=== PATIENT | female | born 1955 | race African-American/Black ===

== ENCOUNTER → 2016-08-26 | Outpatient (CLI) | payer OTHER ==
--- NOTE | 2016-08-26 23:25 | WWHP ---
DATE OF DICTATION: 08/26/2016 CHIEF COMPLAINT: The patient is here for her routine gynecologic exam and mammogram. HISTORY OF PRESENT ILLNESS: This is a 60-year-old -0-5-4 with an LMP of 2013. The patient is complaining of problems related to decreased sexual desire. She states she noticed significant decrease after her menopause a few years ago. She states she has been having marital problems and they do tend to argue a lot. She continues to have some left-sided pelvic discomfort, especially with sexual intercourse. She did have a negative ultrasound one year ago. She denies any postmenopausal bleeding. PAST MEDICAL HISTORY: 1. Chronic lumbar back problems. 2. History of CVA and NC. 3. Chronic hypertension. 4. COPD. 5. Depression. Dr. Naik is her primary care physician. MEDICATIONS: 1. Alprazolam 1 mg t.i.d. 2. Montelukast 10 mg daily. 3. Amlodipine 5 mg daily. 4. Hydrocodone with acetaminophen 10/325 t.i.d. 5. Vitamin B6 50 mg daily. ALLERGIES: NO KNOWN DRUG ALLERGIES. Past surgical, DISPATCHER RADIO and family histories are unchanged from the 2016 H&P. SOCIAL HISTORY: She was a regular smoker in the past but has decreased and now only smokes cigarettes when she is upset. She typically has 1 to 2 cigarettes per week. She has about 3 alcoholic drinks per week and denies drug use. She has been since about 1992. She has had some marital problems. She is considered disabled. REVIEW OF SYSTEMS: She has gained about 3 pounds over the last year. She denies respiratory or cardiac problems. GI: She has occasional heartburn and occasional constipation and occasional diarrhea. She denies falling but occasionally has some dizzy spells. She has had some issues with arguments with her . She denies any other maltreatment. : She denies any problems with urinary leakage. PHYSICAL EXAM: Blood pressure 135/86. Height 5 feet 0 inches. Weight 158 pounds. Temperature 98.5, pulse 63. This is a well-developed, well-nourished black female who is alert and oriented x3, in no acute distress. HEENT is within normal limits. NECK: Supple without mass or thyromegaly. CHEST AND LUNGS: Clear to auscultation. HEART: Regular rate and rhythm. Breasts are without mass or discharge, but there is mild generalized left tenderness. She states this left breast has always been more tender for quite some time. Axillary exam is negative for adenopathy. BACK: Negative for CVA tenderness. ABDOMEN: Soft, nontender, without palpable masses. PELVIC EXAM: External genitalia reveal mild atrophy without lesions. Cervix and vagina reveal mild atrophy without lesions. There is no unusual discharge. There is no cervical motion tenderness. There is no significant prolapse. The uterus is mid position, non-gravid size and nontender. There is minimal left adnexal tenderness without palpable mass. There is no right adnexal tenderness or mass. Rectovaginal exam is negative for mass or tenderness and is negative for occult blood. EXTREMITIES: Nontender. IMPRESSION: 1. A 60-year-old menopausal female with decreased sexual desire. This seems to be related to some marital problems that she has had over the years. 2. Minimal left adnexal tenderness, which is similar to her previous examination, and she did have a negative pelvic ultrasound last year. 3. Multiple medical problems. 4. History of an abnormal left mammogram in the past. PLAN: 1. Pap smear was deferred, since she had a negative Pap smear last year. 2. Self breast examination was discussed. 3. Diagnostic mammogram will be done on both breasts along with a left ultrasound as recommended. 4. We have had a long discussion regarding her decreased sexual desire. She understands there can be many factors that cause decreased sexual desire. Since she tends to be having significant marital problems, her decreased sexual desire may be related to this. 5. I have talked to the patient about counseling with her because of the problems that they have been having. We will have the patient advocate speak with the patient regarding possible counseling and to determine if other [employer] school social worker are required or if they would be beneficial. 6. She will return in one year and as needed.
--- NOTE | 2016-08-28 10:07 | MM ---
Reason for exam: clinical finding. Last mammogram was performed 1 year and 1 month ago. History: Patient is postmenopausal. Indicated problem(s): pain in the left breast. Physical Findings: Dr. Velasquez did not find any significant physical abnormalities on exam. MG Diagnostic Mammo w CAD PENG Bilateral CC and MLO view(s) were taken. Prior study comparison: July 24, 2015, bilateral MG diagnostic mammo w CAD PENG. July 06, 2014, bilateral MG diagnostic mammo w CAD PENG. The breast tissue is heterogeneously dense. This may lower the sensitivity of mammography. Developing asymmetry in the right posterior CC view for which additional imaging is recommended. This finding is changed when compared with previous exams. ASSESSMENT: Probably benign, BI-RAD 3 RECOMMENDATION: Special view mammogram of the right breast. If lesion persists on supplemental views, image directed ultrasound is recommended. [facility] will attempt to contact patient to return for supplemental views and ultrasound if indicated.
--- NOTE | 2016-08-28 10:23 | USB ---
Reason for exam: clinical finding. History: Patient is postmenopausal. Indicated problem(s): pain in the left breast. US Breast LT Left breast ultrasound includes all four quadrants, the retroareolar region and axilla. Finding demonstrates a 0.4 x 0.6 x 0.2cm mixed lesion at 1 o'clock, a 0.3 x 0.3 x 0.1cm lesion too small to characterize at 6 o'clock and a 0.5 x 0.2 x 0.5cm cystic lesion at 9 o'clock. Corresponds to 03/05/16. ASSESSMENT: Benign, BI-RAD 2 RECOMMENDATION: Follow-up diagnostic mammogram of the left breast in 6 months.
== END | disposition home or self-care (01) ==
LOC: WWCWWP 10:58
PROVIDERS: ATTEND Obstetrics & Gynecology
DX: R92.8 Other abnormal and inconclusive findings on diagnostic imaging of breast (principal)
CPT/HCPCS: 76641; G0204

== ENCOUNTER → 2016-09-04 | Outpatient (CLI) | payer OTHER ==
--- NOTE | 2016-09-04 13:12 | MM ---
Reason for exam: additional evaluation requested from abnormal screening. Last mammogram was performed less than 1 month ago. History: Patient is postmenopausal. Physical Findings: Dr. Velasquez did not find any significant physical abnormalities on exam from 08/26/16. MG Follow Up RT No Charge LM, spot compression MLO, and spot compression CC view(s) were taken of the right breast. Prior study comparison: August 26, 2016, bilateral MG diagnostic mammo w CAD PENG. March 05, 2016, left breast US breast LT. The breast tissue is heterogeneously dense. This may lower the sensitivity of mammography. Persistent right 12 o'clock density, ultrasound recommended. This finding is changed when compared with previous exams. These results were verbally communicated with the patient and result sheet given to the patient on 09/04/16. ASSESSMENT: Incomplete: need additional imaging evaluation, BI-RAD 0 RECOMMENDATION: Ultrasound of the right breast.
--- NOTE | 2016-09-04 13:15 | USB ---
Reason for exam: additional evaluation requested from abnormal screening. History: Patient is postmenopausal. US Breast Workup Limited RT Right breast ultrasound demonstrates a 0.3 x 0.3 x 0.2cm mixed lesion at 12 o'clock, correlates with mammographic findings. These results were verbally communicated with the patient and result sheet given to the patient on 09/04/16. ASSESSMENT: Suspicious, BI-RAD 4 RECOMMENDATION: Surgical consultation and stereotactic core biopsy of the right breast. Called Dr. Velasquez with mammographic findings and has scheduled an appointment for the patient for 09/05/16 at 10:[address] Lewis. PRELIMINARY REPORT CALLED AND FAXED TO DR. LEWIS ON 09/04/16 /TP.
== END ==
LOC: RADMAMWWP 10:09
PROVIDERS: ATTEND Obstetrics & Gynecology
DX: Z53.9 Procedure and treatment not carried out, unspecified reason (principal)

== ENCOUNTER → 2016-09-23 | Day surgery (SDC) | payer OTHER ==
[2016-09-23 07:51] VITALS: PULSE 66; RESP 15; TEMP 97.8; BMI 31.2
--- NOTE | 2016-09-23 10:53 | MM ---
EXAMINATION TYPE: MG discontinued stereo core RT DATE OF EXAM: 09/23/2016 COMPARISON: Previous study dated 09/04/2016. CLINICAL HISTORY: Abnormal mammogram. TECHNIQUE: Stereotactic guided core biopsy of right breast. FINDINGS: The procedure of stereotactic guided core biopsy was explained to the patient. Benefits, a lternatives, and risks were discussed. An informed consent was then obtained. The [facility] pathway for biopsy was chosen. [facility] pathway was a CC approach. On the localizatio n views, no definite abnormality is seen. The procedure was less discontinued. IMPRESSION: DISCONTINUED MAMMOTOME STERILE CORE BIOPSY OF THE RIGHT BREAST. RECOMMENDATION: 6 MONTH FOLLOW-UP, RIGHT BREAST. BI-RADS 3
--- NOTE | 2016-09-23 11:25 | PN ---
The patient is a 60-year-old black female who presented for a stereotactic biopsy of the right breast. Radiographs of the breast did not re-demonstrate the area of concern. Therefore , after review with Radiology, it has been determined that the patient will have a repeat mammogram and an appointment with Dr. Najera in 6 months' time. Patient understands this. If she notices anything prior, she will see us sooner. BLANCA
== END ==
LOC: RADMAMWWP 07:25
PROVIDERS: ATTEND Surgery
DX: R92.8 Other abnormal and inconclusive findings on diagnostic imaging of breast (principal); Z53.8 Procedure and treatment not carried out for other reasons

== ENCOUNTER → 2016-11-23 | Outpatient (CLI) | payer OTHER | END | disposition home or self-care (01) | LOC: LABWHC1 07:00 | PROVIDERS: ATTEND Internal Medicine | DX: Z00.00 Encounter for general adult medical examination without abnormal findings (principal); J44.9 Chronic obstructive pulmonary disease, unspecified; K21.0 Gastro-esophageal reflux disease with esophagitis; I11.9 Hypertensive heart disease without heart failure; E78.2 Mixed hyperlipidemia | CPT/HCPCS: 36415; 82272 ==

== ENCOUNTER → 2016-11-25 | Outpatient (CLI) | payer OTHER ==
[2016-11-25 11:26] LABS: CH 32.1; HCT 39.7 % (34.0-46.0); HDW 2.07; HGB 12.8 gm/dL (11.4-16.0); MCH 31.4 pg (25.0-35.0); MCHC 32.2 g/dL (31.0-37.0); MCV 97.7 fL (80.0-100.0); Mean Platelet Volume 8.6; RBC 4.06 m/uL (3.80-5.40); RDW 14.2 % (11.5-15.5)
[2016-11-25 11:41] LABS: Anion Gap 8 mmol/L; Blood Urea Nitrogen 13 mg/dL (7-17); Carbon Dioxide 28 mmol/L (22-30); Chloride 104 mmol/L (98-107); Glucose 95 mg/dL (74-99); Potassium 4.2 mmol/L (3.5-5.1); Sodium 140 mmol/L (137-145)
[2016-11-25 11:42] LABS: ALT 33 U/L (9-52); AST 25 U/L (14-36); Alkaline Phosphatase 52 U/L (38-126); Calcium 9.2 mg/dL (8.4-10.2); Cholesterol 226 mg/dL (<200); HDL Cholesterol 88 mg/dL (40-60); Non-African American GFR(MDRD) >60 (>60 ml/min/1.73 sqM); Total Bilirubin 0.4 mg/dL (0.2-1.3); Total Protein 7.8 g/dL (6.3-8.2)
--- NOTE | 2016-11-25 11:46 | XR ---
EXAMINATION TYPE: XR chest 2V DATE OF EXAM: 11/25/2016 COMPARISON: 10/18/15 HISTORY: Shortness of breath TECHNIQUE: Frontal and lateral views of the chest are obtained. FINDINGS: Scattered senescent parenchymal changes noted. Hyperinflation compatible with COPD. No evidence for infiltrate. No evidence for atelectasis. Heart size is stable. Mediastinal structures are stable and grossly unremarkable. No evidence for hilar prominence. Degenerative changes dorsal spine. IMPRESSION: 1. No evidence for acute pulmonary disease.
== END | disposition home or self-care (01) ==
LOC: LABWHC1 10:48
PROVIDERS: ATTEND Internal Medicine
DX: Z00.00 Encounter for general adult medical examination without abnormal findings (principal); J44.9 Chronic obstructive pulmonary disease, unspecified; K21.0 Gastro-esophageal reflux disease with esophagitis; I11.9 Hypertensive heart disease without heart failure; E78.2 Mixed hyperlipidemia
CPT/HCPCS: 36415; 71020; 80053; 80061; 84439; 84443; 85027

== ENCOUNTER 2017-06-07 02:03 | Emergency (ER) | payer OTHER ==
[2017-06-07 02:10] VITALS: BP 109/56; PULSE 60; RESP 16; TEMP 98.1
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
--- NOTE | 2017-06-07 03:05 | XR ---
EXAMINATION TYPE: XR knee complete LT DATE OF EXAM: 06/07/2017 COMPARISON: 12/15/2013 HISTORY: Knee pain TECHNIQUE: 3 views FINDINGS: There is spurring of the medial femoral and tibial condyles. There is narrowing at the turpin llofemoral joint space with spurring. There is a mild knee joint effusion. I see no fracture. There i s no dislocation. IMPRESSION: Osteoarthritic changes. Small knee joint effusion. No significant change compared to old exam. No fracture seen.
== END 2017-06-07 03:30 | disposition home or self-care (01) ==
LOC: EC 02:03
DX: S89.92XA Unspecified injury of left lower leg, initial encounter (principal); J44.9 Chronic obstructive pulmonary disease, unspecified; I10 Essential (primary) hypertension; I25.2 Old myocardial infarction; F41.9 Anxiety disorder, unspecified; F17.200 Nicotine dependence, unspecified, uncomplicated; Z86.73 Personal history of transient ischemic attack (TIA), and cerebral infarction without residual deficits; Z79.891 Long term (current) use of opiate analgesic; Z79.899 Other long term (current) drug therapy; Y92.89 Other specified places as the place of occurrence of the external cause; Y93.01 Activity, walking, marching and hiking
CPT/HCPCS: 73562; 99283; L1830

== ENCOUNTER → 2017-08-28 | Outpatient (CLI) | payer OTHER ==
--- NOTE | 2017-08-28 09:30 | MM ---
Reason for exam: additional evaluation requested from prior study. Last mammogram was performed 1 year ago. History: Patient is postmenopausal. MG discontinued stereo core RT of the right breast, September 23, 2016. Physical Findings: Nurse did not find any significant physical abnormalities on exam. MG Diagnostic Mammo w CAD PENG Bilateral CC and MLO view(s) were taken. Prior study comparison: September 04, 2016, right breast MG follow up RT no charge. August 26, 2016, bilateral MG diagnostic mammo w CAD PENG. There are scattered fibroglandular densities. No significant new findings when compared with previous films. These results were verbally communicated with the patient and result sheet given to the patient on 08/28/17. ASSESSMENT: Benign, BI-RAD 2 RECOMMENDATION: Routine screening mammogram of both breasts in 1 year.
== END | disposition home or self-care (01) ==
LOC: RADMAMWWP 08:14
PROVIDERS: ATTEND Internal Medicine
DX: R92.8 Other abnormal and inconclusive findings on diagnostic imaging of breast (principal)
CPT/HCPCS: 77066

== ENCOUNTER → 2017-11-04 | Outpatient (CLI) | payer OTHER ==
[2017-11-04 11:21] LABS: ALT 37 U/L (9-52); AST 27 U/L (14-36); Albumin 4.2 g/dL (3.5-5.0); Alkaline Phosphatase 43 U/L (38-126); Anion Gap 9 mmol/L; Blood Urea Nitrogen 15 mg/dL (7-17); Carbon Dioxide 28 mmol/L (22-30); Chloride 103 mmol/L (98-107); Cholesterol 230 mg/dL (<200); Glucose 88 mg/dL (74-99); HDL Cholesterol 84 mg/dL (40-60); LDL Cholesterol,Calculated 128 mg/dL (0-99); Potassium 4.4 mmol/L (3.5-5.1); Sodium 140 mmol/L (137-145); Total Bilirubin 0.4 mg/dL (0.2-1.3); Total Protein 7.4 g/dL (6.3-8.2); Triglycerides 89 mg/dL (<150)
== END | disposition home or self-care (01) ==
LOC: LABWHC1 10:43
PROVIDERS: ATTEND Physician Assistant
DX: I63.9 Cerebral infarction, unspecified (principal)
CPT/HCPCS: 36415; 80053; 80061; 83090

== ENCOUNTER → 2017-11-27 | Outpatient (CLI) | payer OTHER ==
--- NOTE | 2017-11-27 17:04 | MR ---
EXAMINATION TYPE: MR lumbar spine wo con DATE OF EXAM: 11/27/2017 COMPARISON: Prior lumbar MRI dated 09/06/2009 HISTORY: LBP, BLE weakness/numbness x 7 years TECHNIQUE: Multiplanar, multisequence images of the lumbar spine were acquired. L1-L2: Broad-based posterior disc bulge causes right paracentral mass effect on the thecal sac likely contributed by the spinal curvature greater on the right. No significant central stenosis. Facet art hropathy causes some posterior lateral mass effect on the thecal sac posteriorly on the right. There is some right-sided foraminal encroachment due to lateral extension endplate disc complex. L2-L3: Circumferential posterior disc bulge contacts the anterior thecal sac. Lateral extension endpl ate disc complex results in foraminal encroachment greater on the right. No significant central steno sis. There is some facet arthropathy causing posterior lateral mass effect on the thecal sac from the right. L3-L4: Circumferential broad-based posterior disc bulge contacts the anterior thecal sac. Lateral ext ension of endplate disc complex results in some foraminal encroachment greater on the right. There is facet arthropathy change present. No significant central stenosis. L4-L5: Broad-based posterior disc bulge is present, lateral extension of endplate disc complex encroa ches on the left neural foramen. Facet arthropathy causes posterior lateral mass effect on the thecal sac greater on the left. Only mild central stenosis. Broad-based posterior disc bulge causes mild an terior mass effect on the thecal sac. L5-S1: Facet arthropathy changes present. No significant central canal stenosis. Circumferential exte nsion of endplate disc complex combined with the spinal curvature results in foraminal encroachment g reater on the left than on the right. Broad-based posterior disc bulge causes possible contact of the anterior thecal sac. Lumbar segments are intact. No paraspinal masses are identified. Conus medullaris has a normal appe arance. There is a spinal curvature as on prior exam. Lumbar vertebral bodies show preserved height. Multilevel endplate discogenic marrow signal change and spondylosis is present. Loss of disc height a nd signal at intervertebral levels is noted, vacuum phenomenon present L5-S1, L4-5, L3-4 with interva l loss of disc height compared to prior exam. IMPRESSION: Scoliosis, multilevel degenerative disc disease, foraminal encroachment and facet arthropathy. Findin gs are similar to prior exam.
== END | disposition home or self-care (01) ==
LOC: RADMRIMAIN 15:11
PROVIDERS: ATTEND Physician Assistant
DX: M51.36 Other intervertebral disc degeneration, lumbar region (principal); M46.86 Other specified inflammatory spondylopathies, lumbar region; M41.86 Other forms of scoliosis, lumbar region
CPT/HCPCS: 72148

== ENCOUNTER 2018-01-13 10:27 | Emergency (ER) | payer OTHER ==
[2018-01-13] MEDS ORDERED: KETOROLAC 60 MG/2 ML VIAL IM STA (11:06)
--- NOTE | 2018-01-13 11:10 | ED ---
General Adult HPI - General Chief complaint: Urogenital Stated complaint: lower back pain Time Seen by Provider: 01/13/18 10:30 Source: patient, RN notes reviewed Mode of arrival: ambulatory Limitations: no limitations - History of Present Illness Initial comments: This is a 62-year-old female who presents emergency department stating that she thinks she might have some kidney problem. Patient states her back in her kidney area hurts bilaterally. Patient states anytime she twists or moves it hurts. Patient states her mother had kidney problem so she's very worried about her kidney function. Patient states she's had no dysuria hematuria urinary frequency. Patient denies any abdominal pain patient denies nausea vomiting diarrhea. Patient denies any chest pain difficulty breathing or shortness of breath per patient denies any recent fever chills or cough per patient denies any peripheral edema calf pain. Patient denies any lightheadedness dizziness or near syncopal episode. Patient states she was doing some lifting with some dumbbells 2 days ago and that was something she normally does not do. Patient states the pain started the day after that he got a little bit worse in the middle of last night. - Related Data Home Medications Medication Instructions Recorded Confirmed HYDROcodone/APAP 10-325MG [[place] 1 tab PO BID 02/16/14 01/13/18 10] Montelukast [Singulair] 10 mg PO DAILY 02/16/14 01/13/18 Omeprazole [PriLOSEC] 20 mg PO AC-BRKFST 02/16/14 01/13/18 amLODIPine [Norvasc] 5 mg PO DAILY 02/16/14 01/13/18 ALPRAZolam [Xanax] 0.5 mg PO TID PRN 01/13/18 01/13/18 Multivitamins, Thera [Multivitamin 1 tab PO DAILY 01/13/18 01/13/18 (formulary)] Previous Rx's Medication Instructions Recorded Ibuprofen [Motrin] 600 mg PO Q6HR PRN #20 tab 01/13/18 Allergies Allergy/AdvReac Type Severity Reaction Status Date / Time No Known Allergies Allergy Verified 01/13/18 10:58 Review of Systems ROS Statement: Those systems with pertinent positive or pertinent negative responses have been documented in the HPI. ROS Other: All systems not noted in ROS Statement are negative. 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 Patient is nontoxic and well- hydrated and is in no acute distress. ENT: Neck is soft and supple. No significant lymphadenopathy is noted. Oropharynx is clear. Moist mucous membranes. Neck has full range of motion without eliciting any pain. EYES: The sclera were anicteric and conjunctiva were pink and moist. Extraocular movements were intact and pupils were equal round and reactive to light. Eyelids were unremarkable. PULMONARY: Unlabored respirations. Good breath sounds bilaterally. No audible rales rhonchi or wheezing was noted. CARDIOVASCULAR: There is a regular rate and rhythm without any murmurs gallops or rubs. ABDOMEN: Soft and nontender with normal bowel sounds. No palpable organomegaly was noted. There is no palpable pulsatile mass. SKIN: Skin is clear with no lesions or rashes and otherwise unremarkable. NEUROLOGIC: Patient is alert and oriented x3. Cranial nerves II through XII are grossly intact. Motor and sensory are also intact. Normal speech, volume and content. Symmetrical smile. MUSCULOSKELETAL: Normal extremities with adequate strength and full range of motion. Patient's pain is reproducible on palpation LYMPHATICS: No significant lymphadenopathy is noted PSYCHIATRIC: Normal psychiatric evaluation. Limitations: no limitations Course Vital Signs 01/13/18 10:29 Temperature 98.1 F Pulse Rate 63 Respiratory 16 Rate Blood Pressure 168/109 O2 Sat by Pulse 99 Oximetry Medical Decision Making - Medical Decision Making I went back to reevaluate the patient after the Toradol shot. Patient states her pain was much improved. - Lab Data Result diagrams: 01/13/18 11:27 01/13/18 11:27 Lab Results 01/13/18 01/13/18 01/13/18 Range/Units 11:27 11:27 11:27 WBC 5.4 (3.8-10.6) k/uL RBC 4.13 (3.80-5.40) m/uL Hgb 12.4 (11.4-16.0) gm/dL Hct 39.2 (34.0-46.0) % MCV 94.8 (80.0-100.0) fL MCH 29.9 (25.0-35.0) pg MCHC 31.5 (31.0-37.0) g/dL RDW 13.4 (11.5-15.5) % Plt Count 222 (150-450) k/uL Neutrophils % 48 % Lymphocytes % 42 % Monocytes % 5 % Eosinophils % 2 % Basophils % 1 % Neutrophils # 2.6 (1.3-7.7) k/uL Lymphocytes # 2.2 (1.0-4.8) k/uL Monocytes # 0.3 (0-1.0) k/uL Eosinophils # 0.1 (0-0.7) k/uL Basophils # 0.0 (0-0.2) k/uL Sodium 140 (137-145) mmol/L Potassium 4.1 (3.5-5.1) mmol/L Chloride 103 (98-107) mmol/L Carbon Dioxide 28 (22-30) mmol/L Anion Gap 9 mmol/L BUN 15 (7-17) mg/dL Creatinine 0.77 (0.52-1.04) mg/dL Est GFR (CKD-EPI)AfAm >90 (>60 ml/min/1.73 sqM) Est GFR (CKD-EPI)NonAf 84 (>60 ml/min/1.73 sqM) Glucose 87 (74-99) mg/dL Calcium 9.6 (8.4-10.2) mg/dL Total Bilirubin 0.5 (0.2-1.3) mg/dL AST 32 (14-36) U/L ALT 34 (9-52) U/L Alkaline Phosphatase 41 (38-126) U/L Total Protein 8.2 (6.3-8.2) g/dL Albumin 4.5 (3.5-5.0) g/dL Urine Color Light Yellow Urine Appearance Clear (Clear) Urine pH 6.5 (5.0-8.0) Ur Specific [place] 1.004 (1.001-1.035) Urine Protein Negative (Negative) Urine Glucose (UA) Negative (Negative) Urine Ketones Negative (Negative) Urine Blood Negative (Negative) Urine Nitrite Negative (Negative) Urine Bilirubin Negative (Negative) Urine Urobilinogen <2.0 (<2.0) mg/dL Ur Leukocyte Esterase Negative (Negative) Disposition Clinical Impression: Back strain Disposition: HOME SELF-CARE Condition: Good Instructions: Low Back Strain (ED) Additional Instructions: Patient should take Motrin 600 mg by mouth every 6 hours. Prescriptions: Ibuprofen [Motrin] 600 mg PO Q6HR PRN #20 tab PRN Reason: For pain Is patient prescribed a controlled substance at d/c from ED?: No Referrals: Iván Naik MD [Primary Care Provider] - 1-2 days Time of Disposition: 12:00
[2018-01-13 11:42] LABS: Basophils % (A) 1 %; Eosinophils # (A) 0.1 k/uL (0-0.7); Eosinophils % (A) 2 %; HCT 39.2 % (34.0-46.0); HGB 12.4 gm/dL (11.4-16.0); Lymphocytes # (A) 2.2 k/uL (1.0-4.8); Lymphocytes % (A) 42 %; MCH 29.9 pg (25.0-35.0); MCHC 31.5 g/dL (31.0-37.0); MCV 94.8 fL (80.0-100.0); Monocytes # (A) 0.3 k/uL (0-1.0); Monocytes % (A) 5 %; Neutrophils # (A) 2.6 k/uL (1.3-7.7); Neutrophils % (A) 48 %; Platelet Count 222 k/uL (150-450); RBC 4.13 m/uL (3.80-5.40); RDW 13.4 % (11.5-15.5); WBC 5.4 k/uL (3.8-10.6)
[2018-01-13 11:47] LABS: Appearance,Urine Clear (Clear); Bilirubin,Urine Negative (Negative); Blood,Urine Negative (Negative); Color,Urine Light Yellow; Glucose,Urine (UA) Negative (Negative); Ketones,Urine Negative (Negative); Leukocyte Esterase,Urine Negative (Negative); Nitrite,Urine Negative (Negative); PH, Urine 6.5 (5.0-8.0); Protein,Urine Negative (Negative); Specific Gravity,Urine 1.004 (1.001-1.035); Urobilinogen,Urine <2.0 mg/dL (<2.0)
[2018-01-13 11:52] LABS: ALT 34 U/L (9-52); AST 32 U/L (14-36); Albumin 4.5 g/dL (3.5-5.0); Alkaline Phosphatase 41 U/L (38-126); Anion Gap 9 mmol/L; Blood Urea Nitrogen 15 mg/dL (7-17); Calcium 9.6 mg/dL (8.4-10.2); Carbon Dioxide 28 mmol/L (22-30); Chloride 103 mmol/L (98-107); Glucose 87 mg/dL (74-99); Potassium 4.1 mmol/L (3.5-5.1); Sodium 140 mmol/L (137-145); Total Bilirubin 0.5 mg/dL (0.2-1.3); Total Protein 8.2 g/dL (6.3-8.2)
[2018-01-13 12:10] VITALS: BP 153/94; PULSE 61; RESP 18; TEMP 97.8
== END 2018-01-13 12:05 | disposition home or self-care (01) ==
LOC: EC 10:27
DX: S39.012A Strain of muscle, fascia and tendon of lower back, initial encounter (principal); J44.9 Chronic obstructive pulmonary disease, unspecified; I25.2 Old myocardial infarction; I10 Essential (primary) hypertension; Z86.73 Personal history of transient ischemic attack (TIA), and cerebral infarction without residual deficits; Z87.891 Personal history of nicotine dependence; Z79.891 Long term (current) use of opiate analgesic; Z79.899 Other long term (current) drug therapy; X50.0XXA Overexertion from strenuous movement or load, initial encounter
CPT/HCPCS: 36415; 80053; 85025; 81003; 99283; 96372; J1885

== ENCOUNTER → 2018-01-15 | Outpatient (CLI) | payer OTHER ==
--- NOTE | 2018-01-15 13:34 | XR ---
EXAMINATION TYPE: XR chest 2V DATE OF EXAM: 01/15/2018 COMPARISON: 11/25/2016 INDICATION: COPD history of stroke, [place] TECHNIQUE: Frontal and lateral views of the chest are obtained. FINDINGS: The heart size is normal. The pulmonary vasculature is normal. The lungs are clear. There is elevation of the posterior lateral left diaphragm. This is chronic. IMPRESSION: 1. No acute pulmonary process.
== END ==
LOC: LABWHC1 12:48
PROVIDERS: ATTEND Internal Medicine
DX: J44.9 Chronic obstructive pulmonary disease, unspecified (principal); I11.9 Hypertensive heart disease without heart failure; E78.2 Mixed hyperlipidemia; K21.0 Gastro-esophageal reflux disease with esophagitis; Z00.00 Encounter for general adult medical examination without abnormal findings
CPT/HCPCS: 71046

== ENCOUNTER → 2018-01-16 | Outpatient (CLI) | payer OTHER ==
[2018-01-16 09:40] LABS: HCT 37.5 % (34.0-46.0); HGB 12.4 gm/dL (11.4-16.0); MCH 31.4 pg (25.0-35.0); MCHC 32.9 g/dL (31.0-37.0); MCV 95.5 fL (80.0-100.0); Mean Platelet Volume 8.4; Platelet Count 201 k/uL (150-450); RBC 3.93 m/uL (3.80-5.40); RDW 13.5 % (11.5-15.5)
[2018-01-16 17:04] LABS: Albumin 4.4 g/dL (3.80-4.90); Albumin/Globulin Ratio 1.76 (1.20-2.10); Anion Gap 2.6 mmol/L (4.00-12.00); Calcium 9.2 mg/dL (8.7-10.3); Carbon Dioxide 32.4 mmol/L (21.6-31.8); Globulin 2.5 g/dL (2.1-3.7); LDL Cholesterol,Calculated 125.4 mg/dL (0.0-131.0); Potassium 4.3 mmol/L (3.5-5.5); Total Bilirubin 0.6 mg/dL (0.3-1.2); Total Protein 6.9 g/dL (6.2-8.2); VLDL Calculation 11.6 mg/dL (5.00-40.00)
== END | disposition home or self-care (01) ==
LOC: LABWHC1 09:02
PROVIDERS: ATTEND Internal Medicine
DX: Z00.00 Encounter for general adult medical examination without abnormal findings (principal); I11.9 Hypertensive heart disease without heart failure; E78.2 Mixed hyperlipidemia; J44.9 Chronic obstructive pulmonary disease, unspecified; K21.0 Gastro-esophageal reflux disease with esophagitis
CPT/HCPCS: 36415; 80053; 80061; 84439; 84443; 85027

== ENCOUNTER 2018-01-27 08:37 | Emergency (ER) | payer OTHER ==
[2018-01-27] MEDS ORDERED: HYDROmorphone 1 MG/ML 1 ML SYRINGE IVP STA (09:09)
[2018-01-27] MEDS ORDERED: PANTOPRAZOLE 40 MG/10 ML VIAL IVP STA (09:09)
[2018-01-27] MEDS ORDERED: SODIUM CHLORIDE 0.9% 500 ML 500 ML IV STA (09:09)
[2018-01-27] MEDS ORDERED: ONDANSETRON 4 MG/2 ML VIAL IVP STA (09:09)
--- NOTE | 2018-01-27 09:20 | ED ---
General Adult HPI - General Chief complaint: GI Bleed Stated complaint: rectal bleeding Time Seen by Provider: 01/27/18 08:40 Source: patient, RN notes reviewed Mode of arrival: ambulatory Limitations: no limitations - History of Present Illness Initial comments: This is a 62-year-old female presents emergency Department complaining of bright red blood per rectum and abdominal pain. Patient states she has known about her patient states she's had some blood in her stool but not bright red like it has been the last 2 days. Patient states she woke up this morning having significant abdominal pain in the periumbilical region which radiates down to her rectum. Patient denies any diarrhea. Patient denies any nausea vomiting per patient's chest pain difficulty breathing shortness breath. Patient denies being on any blood thinners. Patient states she was post to follow-up with Dr. Duong later in the month because of the blood in the stool but now that the blood is much more significant in the pain is worse she decided come emergency department. - Related Data Home Medications Medication Instructions Recorded Confirmed HYDROcodone/APAP 10-325MG [[place] 1 tab PO BID 02/16/14 01/27/18 10] Montelukast [Singulair] 10 mg PO DAILY 02/16/14 01/27/18 Omeprazole [PriLOSEC] 20 mg PO AC-BRKFST 02/16/14 01/27/18 amLODIPine [Norvasc] 5 mg PO DAILY 02/16/14 01/27/18 ALPRAZolam [Xanax] 0.5 mg PO TID PRN 01/13/18 01/27/18 Multivitamins, Thera [Multivitamin 1 tab PO DAILY 01/13/18 01/27/18 (formulary)] Vitamin B Complex 1 cap PO DAILY 01/27/18 01/27/18 Allergies Allergy/AdvReac Type Severity Reaction Status Date / Time SWAI FISH Allergy Severe Anaphylaxis Uncoded 01/27/18 09:46 Review of Systems ROS Statement: Those systems with pertinent positive or pertinent negative responses have been documented in the HPI. ROS Other: All systems not noted in ROS Statement are negative. 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 Patient is nontoxic and well- hydrated and is in mild distress. ENT: Neck is soft and supple. No significant lymphadenopathy is noted. Oropharynx is clear. Moist mucous membranes. Neck has full range of motion without eliciting any pain. EYES: The sclera were anicteric and conjunctiva were pink and moist. Extraocular movements were intact and pupils were equal round and reactive to light. Eyelids were unremarkable. PULMONARY: Unlabored respirations. Good breath sounds bilaterally. No audible rales rhonchi or wheezing was noted. CARDIOVASCULAR: There is a regular rate and rhythm without any murmurs gallops or rubs. ABDOMEN: There is tenderness in the periumbilical region. No rebound or guarding. No palpable organomegaly was noted. There is no palpable pulsatile mass. SKIN: Skin is clear with no lesions or rashes and otherwise unremarkable. NEUROLOGIC: Patient is alert and oriented x3. Cranial nerves II through XII are grossly intact. Motor and sensory are also intact. Normal speech, volume and content. Symmetrical smile. MUSCULOSKELETAL: Normal extremities with adequate strength and full range of motion. No lower extremity swelling or edema. No calf tenderness. LYMPHATICS: No significant lymphadenopathy is noted PSYCHIATRIC: Normal psychiatric evaluation. Limitations: no limitations Course Vital Signs 01/27/18 01/27/18 01/27/18 08:38 09:30 10:00 Temperature 98.6 F Pulse Rate 70 60 70 Respiratory 20 18 18 Rate Blood Pressure 159/99 143/84 160/95 O2 Sat by Pulse 99 98 99 Oximetry 01/27/18 10:30 Temperature Pulse Rate 70 Respiratory 18 Rate Blood Pressure 153/96 O2 Sat by Pulse 99 Oximetry Medical Decision Making - Medical Decision Making EKG shows sinus bradycardia 50 bpm MI interval 142 QRS is 88 QT interval is 436 QTC is 428 per patient's EKG shows T-wave inversions precordial leads Computed tomography scan of the abdomen shows no acute abnormality. I will back into reevaluate the patient and she stated that her pain and gone away. I recommended because of the bleeding that she should stay she did not want to stay because tomorrow is Thanksgiving. I told the patient she could follow-up with her GI doctor however if there is increased bleeding or pain she needs to come back to emergency department and she was in agreement. - Lab Data Result diagrams: 01/27/18 09:10 01/27/18 09:10 Lab Results 01/27/18 01/27/18 01/27/18 Range/Units 09:10 09:10 09:10 WBC 5.1 (3.8-10.6) k/uL RBC 4.12 (3.80-5.40) m/uL Hgb 12.7 (11.4-16.0) gm/dL Hct 38.8 (34.0-46.0) % MCV 94.4 (80.0-100.0) fL MCH 30.8 (25.0-35.0) pg MCHC 32.6 (31.0-37.0) g/dL RDW 13.5 (11.5-15.5) % Plt Count 216 (150-450) k/uL Neutrophils % 40 % Lymphocytes % 46 % Monocytes % 6 % Eosinophils % 3 % Basophils % 1 % Neutrophils # 2.1 (1.3-7.7) k/uL Lymphocytes # 2.4 (1.0-4.8) k/uL Monocytes # 0.3 (0-1.0) k/uL Eosinophils # 0.2 (0-0.7) k/uL Basophils # 0.0 (0-0.2) k/uL PT (9.0-12.0) sec INR (<1.2) APTT (22.0-30.0) sec Sodium 138 (137-145) mmol/L Potassium 4.5 (3.5-5.1) mmol/L Chloride 101 (98-107) mmol/L Carbon Dioxide 29 (22-30) mmol/L Anion Gap 8 mmol/L BUN 19 H (7-17) mg/dL Creatinine 0.87 (0.52-1.04) mg/dL Est GFR (CKD-EPI)AfAm 83 (>60 ml/min/1.73 sqM) Est GFR (CKD-EPI)NonAf 72 (>60 ml/min/1.73 sqM) Glucose 85 (74-99) mg/dL Calcium 9.4 (8.4-10.2) mg/dL Total Bilirubin 0.5 (0.2-1.3) mg/dL AST 30 (14-36) U/L ALT 29 (9-52) U/L Alkaline Phosphatase 44 (38-126) U/L Total Creatine Kinase 153 H (30-135) U/L CK-MB (CK-2) 1.6 (0.0-2.4) ng/mL CK-MB (CK-2) Rel Index 1.0 Troponin I <0.012 (0.000-0.034) ng/mL Total Protein 7.9 (6.3-8.2) g/dL Albumin 4.4 (3.5-5.0) g/dL Amylase (30-110) U/L Lipase (23-300) U/L 01/27/18 01/27/18 Range/Units 09:10 09:10 WBC (3.8-10.6) k/uL RBC (3.80-5.40) m/uL Hgb (11.4-16.0) gm/dL Hct (34.0-46.0) % MCV (80.0-100.0) fL MCH (25.0-35.0) pg MCHC (31.0-37.0) g/dL RDW (11.5-15.5) % Plt Count (150-450) k/uL Neutrophils % % Lymphocytes % % Monocytes % % Eosinophils % % Basophils % % Neutrophils # (1.3-7.7) k/uL Lymphocytes # (1.0-4.8) k/uL Monocytes # (0-1.0) k/uL Eosinophils # (0-0.7) k/uL Basophils # (0-0.2) k/uL PT 9.9 (9.0-12.0) sec INR 1.0 (<1.2) APTT 25.1 (22.0-30.0) sec Sodium (137-145) mmol/L Potassium (3.5-5.1) mmol/L Chloride (98-107) mmol/L Carbon Dioxide (22-30) mmol/L Anion Gap mmol/L BUN (7-17) mg/dL Creatinine (0.52-1.04) mg/dL Est GFR (CKD-EPI)AfAm (>60 ml/min/1.73 sqM) Est GFR (CKD-EPI)NonAf (>60 ml/min/1.73 sqM) Glucose (74-99) mg/dL Calcium (8.4-10.2) mg/dL Total Bilirubin (0.2-1.3) mg/dL AST (14-36) U/L ALT (9-52) U/L Alkaline Phosphatase (38-126) U/L Total Creatine Kinase (30-135) U/L CK-MB (CK-2) (0.0-2.4) ng/mL CK-MB (CK-2) Rel Index Troponin I (0.000-0.034) ng/mL Total Protein (6.3-8.2) g/dL Albumin (3.5-5.0) g/dL Amylase 94 (30-110) U/L Lipase 76 (23-300) U/L Disposition Clinical Impression: Rectal bleeding, Abdominal pain Disposition: HOME SELF-CARE Condition: Good Instructions: Gastrointestinal Bleeding (ED), Abdominal Pain (ED) Is patient prescribed a controlled substance at d/c from ED?: No Referrals: Iván Naik MD [Primary Care Provider] - 1-2 days Time of Disposition: 11:59
[2018-01-27 09:39] LABS: Basophils % (A) 1 %; Eosinophils # (A) 0.2 k/uL (0-0.7); Eosinophils % (A) 3 %; HCT 38.8 % (34.0-46.0); HGB 12.7 gm/dL (11.4-16.0); Lymphocytes # (A) 2.4 k/uL (1.0-4.8); Lymphocytes % (A) 46 %; MCH 30.8 pg (25.0-35.0); MCHC 32.6 g/dL (31.0-37.0); MCV 94.4 fL (80.0-100.0); Mean Platelet Volume 8.6; Monocytes # (A) 0.3 k/uL (0-1.0); Monocytes % (A) 6 %; Neutrophils # (A) 2.1 k/uL (1.3-7.7); Neutrophils % (A) 40 %; Platelet Count 216 k/uL (150-450); RBC 4.12 m/uL (3.80-5.40); RDW 13.5 % (11.5-15.5); WBC 5.1 k/uL (3.8-10.6)
[2018-01-27 09:50] LABS: Partial Thromboplastin Time 25.1 sec (22.0-30.0); Prothrombin Time 9.9 sec (9.0-12.0)
[2018-01-27 09:53] LABS: Albumin 4.4 g/dL (3.5-5.0); Calcium 9.4 mg/dL (8.4-10.2); Potassium 4.5 mmol/L (3.5-5.1); Total Bilirubin 0.5 mg/dL (0.2-1.3); Total Protein 7.9 g/dL (6.3-8.2)
[2018-01-27 10:00] LABS: Creatine Kinase 153 U/L (30-135)
[2018-01-27 10:13] LABS: Creatine Kinase MB 1.6 ng/mL (0.0-2.4); Troponin I <0.012 ng/mL (0.000-0.034)
[2018-01-27 10:52] VITALS: RESP 18
--- NOTE | 2018-01-27 11:01 | CT ---
EXAMINATION TYPE: CT abdomen pelvis w con DATE OF EXAM: 01/27/2018 COMPARISON: None INDICATION: Rectal bleeding DLP: 859.2 mGycm, Automated exposure control for dose reduction was used. CONTRAST: 100 mL of Isovue 300. Study performed without Oral Contrast TECHNIQUE: Axial images were obtained from above the diaphragm to the pubic rami in the axial plane a t 5 mm thick sections. Reconstructed images are reviewed on the computer in the coronal plane. FINDINGS: Limited CT sections are obtained the lung bases. The lung bases are clear. CT ABDOMEN: Liver: Normal Spleen: Normal Pancreas: Pancreatic duct appears prominent through its visualized course. The body duct measures rossana roximately 0.4 cm. Normal should be less than 0.2 cm. Consider ERCP for additional evaluation. Adrenal glands: The adrenal glands are normal. Gallbladder: Normal Kidneys: No masses are evident. No hydronephrosis is present. No cysts are present. Delayed images were obtained through the kidneys, which remain unremarkable. Aorta: Normal Inferior vena cava: Normal. CT PELVIS: There is a periumbilical fat-containing hernia with an opening of 2.6 cm. Loops of bowel within the abdomen and pelvis are normal. Study is performed without oral contrast limiting bowel evaluation. Appendix: Normal as visualized. Urinary bladder: Normal. Genitourinary structures: Uterus and adnexal regions appear normal. Osseous structures: No suspicious lytic or sclerotic lesions. IMPRESSIONS: 1. Pancreatic duct is prominent. Consider ERCP for additional evaluation. 2. Periumbilical fat-containing hernia.
[2018-01-27 11:30] LABS: Amylase 94 U/L (30-110); Lipase 76 U/L (23-300)
[2018-01-27 12:05] VITALS: BP 146/87; PULSE 65; TEMP 98.1
== END 2018-01-27 12:15 | disposition home or self-care (01) ==
LOC: EC 08:37
DX: K62.5 Hemorrhage of anus and rectum (principal); R10.9 Unspecified abdominal pain; R00.1 Bradycardia, unspecified; J44.9 Chronic obstructive pulmonary disease, unspecified; I10 Essential (primary) hypertension; I25.2 Old myocardial infarction; F41.9 Anxiety disorder, unspecified; Z86.73 Personal history of transient ischemic attack (TIA), and cerebral infarction without residual deficits; Z86.718 Personal history of other venous thrombosis and embolism; Z87.891 Personal history of nicotine dependence; Z98.890 Other specified postprocedural states; Z79.891 Long term (current) use of opiate analgesic; Z79.899 Other long term (current) drug therapy; Z91.013 Allergy to seafood
CPT/HCPCS: 36415; 93005; 86900; 86901; 80053; 82150; 82550; 82553; 83690; 84484; 85025; 85610; 85730; 86850; 74177; 99285; 96374; 96375 ×2; J2405; J1170; C9113; Q9967

== ENCOUNTER 2018-01-29 08:53 | Emergency (ER) | payer OTHER ==
[2018-01-29 09:06] VITALS: BP 153/97; PULSE 64; RESP 20; TEMP 98.5
[2018-01-29] MEDS ORDERED: ONDANSETRON 4 MG/2 ML VIAL IVP STA (09:09)
[2018-01-29] MEDS ORDERED: SODIUM CHLORIDE 0.9% 500 ML 500 ML IV STA (09:09)
[2018-01-29] MEDS ORDERED: PANTOPRAZOLE 40 MG/10 ML VIAL IVP STA (09:09)
[2018-01-29] MEDS ORDERED: SODIUM CHLORIDE 0.9% 1,000 ML IV STA (09:09)
--- NOTE | 2018-01-29 09:19 | ED ---
GI Bleed HPI - General Chief complaint: GI Bleed Stated complaint: abd pain, GI bleed Time Seen by Provider: 01/29/18 09:09 Source: patient, RN notes reviewed, old records reviewed Mode of arrival: ambulatory Limitations: no limitations - History of Present Illness Initial comments: This is a 62-year-old female the ER for evaluation GI bleed. Patient is continued to have persistent blood in her stool as well as just [place] stool and bowel movements. Patient states she has abdominal pain was unable to eat and thinks hearing secondary to pain and not feeling hungry. Patient is having persistent bright red blood per rectum. No feelings of lightheadedness dizziness or weakness MD complaint: blood on toilet paper, blood streaked stool -: days(s) (4) Quality: cramping, dull Consistency: constant Improves with: none Worsens with: none Context: history of GI bleed Associated Symptoms: weakness - Related Data Home Medications Medication Instructions Recorded Confirmed HYDROcodone/APAP 10-325MG [[place] 1 tab PO BID 02/16/14 01/29/18 10] Montelukast [Singulair] 10 mg PO DAILY 02/16/14 01/29/18 Omeprazole [PriLOSEC] 20 mg PO AC-BRKFST 02/16/14 01/29/18 amLODIPine [Norvasc] 5 mg PO DAILY 02/16/14 01/29/18 ALPRAZolam [Xanax] 0.5 mg PO TID PRN 01/13/18 01/29/18 Multivitamins, Thera [Multivitamin 1 tab PO DAILY 01/13/18 01/29/18 (formulary)] Vitamin B Complex 1 cap PO DAILY 01/27/18 01/29/18 Albuterol Nebulized [Ventolin 2.5 mg PO RT-TID 01/29/18 01/29/18 Nebulized] Allergies Allergy/AdvReac Type Severity Reaction Status Date / Time SWAI FISH Allergy Severe Anaphylaxis Uncoded 01/29/18 09:06 Review of Systems ROS Statement: Those systems with pertinent positive or pertinent negative responses have been documented in the HPI. ROS Other: All systems not noted in ROS Statement are negative. 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 Absent: scleral icterus, conjunctival injection, periorbital swelling ENT exam: Present: normal exam, mucous membranes moist Neck exam: Present: normal inspection. Absent: tenderness, meningismus, lymphadenopathy Respiratory exam: Present: normal lung sounds bilaterally. Absent: respiratory distress, wheezes, rales, rhonchi, stridor Cardiovascular Exam: Present: regular rate, normal rhythm, normal heart sounds. Absent: systolic murmur, diastolic murmur, rubs, gallop, clicks GI/Abdominal exam: Present: soft, normal bowel sounds. Absent: distended, tenderness, guarding, rebound, rigid Extremities exam: Present: normal inspection, full ROM, normal capillary refill. Absent: tenderness, pedal edema, joint swelling, calf tenderness Back exam: Present: normal inspection Neurological exam: Present: alert, oriented X3, CN II-XII intact Psychiatric exam: Present: normal affect, normal mood Skin exam: Present: warm, dry, intact, normal color. Absent: rash Course Vital Signs 01/29/18 09:03 Temperature 98.5 F Pulse Rate 64 Respiratory 20 Rate Blood Pressure 153/97 O2 Sat by Pulse 98 Oximetry - Reevaluation(s) Reevaluation #1: 01/29/18 12:08 Medical record is reviewed, prior ER visit is thoroughly reviewed Medical Decision Making - Medical Decision Making 62 female the ER for positive GI bleed will admit for GI evaluation secondary to current GI bleed - Lab Data Result diagrams: 01/29/18 09:30 01/29/18 09:30 Lab Results 01/29/18 01/29/18 01/29/18 Range/Units 09:30 09:30 09:30 WBC 5.4 (3.8-10.6) k/uL RBC 4.11 (3.80-5.40) m/uL Hgb 12.6 (11.4-16.0) gm/dL Hct 38.5 (34.0-46.0) % MCV 93.8 (80.0-100.0) fL MCH 30.7 (25.0-35.0) pg MCHC 32.7 (31.0-37.0) g/dL RDW 13.5 (11.5-15.5) % Plt Count 201 (150-450) k/uL Neutrophils % 54 % Lymphocytes % 34 % Monocytes % 6 % Eosinophils % 2 % Basophils % 1 % Neutrophils # 2.9 (1.3-7.7) k/uL Lymphocytes # 1.8 (1.0-4.8) k/uL Monocytes # 0.3 (0-1.0) k/uL Eosinophils # 0.1 (0-0.7) k/uL Basophils # 0.0 (0-0.2) k/uL PT (9.0-12.0) sec INR (<1.2) APTT (22.0-30.0) sec Sodium 137 (137-145) mmol/L Potassium 4.8 (3.5-5.1) mmol/L Chloride 104 (98-107) mmol/L Carbon Dioxide 26 (22-30) mmol/L Anion Gap 7 mmol/L BUN 24 H (7-17) mg/dL Creatinine 0.68 (0.52-1.04) mg/dL Est GFR (CKD-EPI)AfAm >90 (>60 ml/min/1.73 sqM) Est GFR (CKD-EPI)NonAf >90 (>60 ml/min/1.73 sqM) Glucose 102 H (74-99) mg/dL Calcium 9.0 (8.4-10.2) mg/dL Magnesium 1.8 (1.6-2.3) mg/dL Total Bilirubin 0.7 (0.2-1.3) mg/dL AST 37 H (14-36) U/L ALT 22 (9-52) U/L Alkaline Phosphatase 49 (38-126) U/L Total Creatine Kinase 189 H (30-135) U/L CK-MB (CK-2) 1.6 (0.0-2.4) ng/mL CK-MB (CK-2) Rel Index 0.8 Troponin I 0.025 (0.000-0.034) ng/mL Total Protein 8.3 H (6.3-8.2) g/dL Albumin 4.5 (3.5-5.0) g/dL Lipase 92 (23-300) U/L 01/29/18 Range/Units 09:30 WBC (3.8-10.6) k/uL RBC (3.80-5.40) m/uL Hgb (11.4-16.0) gm/dL Hct (34.0-46.0) % MCV (80.0-100.0) fL MCH (25.0-35.0) pg MCHC (31.0-37.0) g/dL RDW (11.5-15.5) % Plt Count (150-450) k/uL Neutrophils % % Lymphocytes % % Monocytes % % Eosinophils % % Basophils % % Neutrophils # (1.3-7.7) k/uL Lymphocytes # (1.0-4.8) k/uL Monocytes # (0-1.0) k/uL Eosinophils # (0-0.7) k/uL Basophils # (0-0.2) k/uL PT 10.1 (9.0-12.0) sec INR 1.0 (<1.2) APTT 22.4 (22.0-30.0) sec Sodium (137-145) mmol/L Potassium (3.5-5.1) mmol/L Chloride (98-107) mmol/L Carbon Dioxide (22-30) mmol/L Anion Gap mmol/L BUN (7-17) mg/dL Creatinine (0.52-1.04) mg/dL Est GFR (CKD-EPI)AfAm (>60 ml/min/1.73 sqM) Est GFR (CKD-EPI)NonAf (>60 ml/min/1.73 sqM) Glucose (74-99) mg/dL Calcium (8.4-10.2) mg/dL Magnesium (1.6-2.3) mg/dL Total Bilirubin (0.2-1.3) mg/dL AST (14-36) U/L ALT (9-52) U/L Alkaline Phosphatase (38-126) U/L Total Creatine Kinase (30-135) U/L CK-MB (CK-2) (0.0-2.4) ng/mL CK-MB (CK-2) Rel Index Troponin I (0.000-0.034) ng/mL Total Protein (6.3-8.2) g/dL Albumin (3.5-5.0) g/dL Lipase (23-300) U/L Disposition Clinical Impression: Rectal bleeding, Gastrointestinal hemorrhage Disposition: ADMITTED IP TO THIS HOSP Condition: Fair Instructions: Gastrointestinal Bleeding (ED) Is patient prescribed a controlled substance at d/c from ED?: No Referrals: Iván Naik MD [Primary Care Provider] - 1-2 days
[2018-01-29 10:01] LABS: Basophils % (A) 1 %; Eosinophils # (A) 0.1 k/uL (0-0.7); Eosinophils % (A) 2 %; HCT 38.5 % (34.0-46.0); HGB 12.6 gm/dL (11.4-16.0); Lymphocytes # (A) 1.8 k/uL (1.0-4.8); Lymphocytes % (A) 34 %; MCH 30.7 pg (25.0-35.0); MCHC 32.7 g/dL (31.0-37.0); MCV 93.8 fL (80.0-100.0); Mean Platelet Volume 8.7; Monocytes # (A) 0.3 k/uL (0-1.0); Monocytes % (A) 6 %; Neutrophils # (A) 2.9 k/uL (1.3-7.7); Neutrophils % (A) 54 %; Platelet Count 201 k/uL (150-450); RBC 4.11 m/uL (3.80-5.40); RDW 13.5 % (11.5-15.5); WBC 5.4 k/uL (3.8-10.6)
[2018-01-29 10:09] LABS: Partial Thromboplastin Time 22.4 sec (22.0-30.0); Prothrombin Time 10.1 sec (9.0-12.0)
[2018-01-29 10:16] LABS: ALT 22 U/L (9-52); AST 37 U/L (14-36); Albumin 4.5 g/dL (3.5-5.0); Alkaline Phosphatase 49 U/L (38-126); Anion Gap 7 mmol/L; Blood Urea Nitrogen 24 mg/dL (7-17); Carbon Dioxide 26 mmol/L (22-30); Chloride 104 mmol/L (98-107); Glucose 102 mg/dL (74-99); Lipase 92 U/L (23-300); Magnesium 1.8 mg/dL (1.6-2.3); Sodium 137 mmol/L (137-145); Total Bilirubin 0.7 mg/dL (0.2-1.3); Total Protein 8.3 g/dL (6.3-8.2)
[2018-01-29 10:33] LABS: Potassium 4.8 mmol/L (3.5-5.1)
[2018-01-29 10:35] LABS: Creatine Kinase MB 1.6 ng/mL (0.0-2.4); Troponin I 0.025 ng/mL (0.000-0.034)
[2018-01-29] MEDS ORDERED: MORPHINE SULFATE 4 MG/ML SYRINGE IVP STA (12:05)
[2018-01-29] MEDS ORDERED: MORPHINE SULFATE 4 MG/ML SYRINGE IVP PRN (12:05)
[2018-01-29] MEDS ORDERED: PANTOPRAZOLE 40 MG/10 ML VIAL IVP SCH (21:00)
== END 2018-01-29 13:03 | disposition other institution (70) ==
LOC: EC 08:53
DX: K92.1 Melena (principal); J44.9 Chronic obstructive pulmonary disease, unspecified; I10 Essential (primary) hypertension; I25.2 Old myocardial infarction; R53.1 Weakness; F32.9 Major depressive disorder, single episode, unspecified; F41.9 Anxiety disorder, unspecified; Z86.73 Personal history of transient ischemic attack (TIA), and cerebral infarction without residual deficits; Z87.891 Personal history of nicotine dependence; Z79.891 Long term (current) use of opiate analgesic; Z79.899 Other long term (current) drug therapy; Z91.013 Allergy to seafood
CPT/HCPCS: 36415; 80053; 82550; 82553; 83690; 83735; 84484; 85025; 85610; 85730; 99285; 96374; 96375 ×2; 96361 ×3; J2270; J2405; C9113

== ENCOUNTER → 2018-02-16 | Outpatient (CLI) | payer OTHER ==
--- NOTE | 2018-02-16 11:47 | XR ---
EXAMINATION TYPE: XR wrist complete LT, XR hand complete LT DATE OF EXAM: 02/16/2018 CLINICAL HISTORY: Unspecified osteoarthritis per order. Cramping and swelling. TECHNIQUE: Frontal, lateral and oblique images of the left hand and wrist are obtained. Fourth obliq ue images left wrist is acquired. COMPARISON: None FINDINGS: There is no acute fracture/dislocation evident in the left wrist. The joint spaces in the left wrist appear within normal limits. Mild to moderate focal soft tissue swelling over dorsal aspe ct distal forearm is noted on lateral projection. Images of left hand show no acute fracture or dislocation. Mild narrowing throughout the phalanges is identified at PIP and PIP joints. Mild spurring with slightly more prominent narrowing third DIP sheryl nt dorsal ulnar aspect is present. Demineralization is seen. Overlying soft tissue shows mild diffuse swelling throughout the phalanges. IMPRESSION: There is no acute fracture or dislocation in the left wrist.
== END | disposition home or self-care (01) ==
LOC: RADXRMAIN 10:57
PROVIDERS: ATTEND Internal Medicine
DX: M19.90 Unspecified osteoarthritis, unspecified site (principal)

== ENCOUNTER → 2018-06-03 | Outpatient (CLI) | payer OTHER ==
[2018-06-03 17:18] LABS: LDL Cholesterol,Calculated 85.4 mg/dL (0.0-131.0); VLDL Calculation 11.6 mg/dL (5.00-40.00)
== END | disposition home or self-care (01) ==
LOC: LABWHC1 11:09
PROVIDERS: ATTEND Internal Medicine
DX: E78.2 Mixed hyperlipidemia (principal)
CPT/HCPCS: 36415; 80061; 82550; 84450; 84460

== ENCOUNTER 2018-08-08 10:21 | Emergency (ER) | payer OTHER ==
[2018-08-08 10:27] VITALS: TEMP 98.5
[2018-08-08] MEDS ORDERED: MORPHINE SULFATE 4 MG/ML SYRINGE IVP STA (10:42)
--- NOTE | 2018-08-08 10:42 | ED ---
General Adult HPI - General Chief complaint: Urogenital Stated complaint: kidney pain/bladder problems Time Seen by Provider: 08/08/18 10:29 Source: patient, RN notes reviewed Mode of arrival: ambulatory Limitations: no limitations - History of Present Illness Initial comments: 62-year-old female with a past medical history of COPD, hypertension, degene rative disc disease, DVT, [place] presents to the emergency department for a chief complaint of dysuria 1 week. Patient states she has been having burning with urination for about a week. States that she has urinary urgency and frequency as well. Patient also complaining of some suprapubic burning but denies any other abdominal pain. Patient states that last night her lower back started hurting as well. Patient denies any history of kidney stones or pyelonephritis. Patient does state this pain feels different than her normal back pain. She denies fevers or chills. Patient does admit she had a urinary tract infection in June that was treated and resolved. Patient states she is drinking plenty of water at home, denies any nausea or vomiting. Patient has no other complaints at this time including shortness of breath, chest pain, abdominal pain, nausea or vomiting, headache, or visual changes. - Related Data Home Medications Medication Instructions Recorded Confirmed HYDROcodone/APAP 10-325MG [[place] 1 tab PO BID 02/16/14 01/29/18 10] Montelukast [Singulair] 10 mg PO DAILY 02/16/14 01/29/18 Omeprazole [PriLOSEC] 20 mg PO AC-BRKFST 02/16/14 01/29/18 amLODIPine [Norvasc] 5 mg PO DAILY 02/16/14 01/29/18 ALPRAZolam [Xanax] 0.5 mg PO TID PRN 01/13/18 01/29/18 Multivitamins, Thera [Multivitamin 1 tab PO DAILY 01/13/18 01/29/18 (formulary)] Vitamin B Complex 1 cap PO DAILY 01/27/18 01/29/18 Albuterol Nebulized [Ventolin 2.5 mg PO RT-TID 01/29/18 01/29/18 Nebulized] Previous Rx's Medication Instructions Recorded Dicyclomine [Bentyl] 10 mg PO TID #60 capsule 01/29/18 Ondansetron [Zofran] 4 mg PO Q8HR #30 tab 01/29/18 Allergies Allergy/AdvReac Type Severity Reaction Status Date / Time SWAI FISH Allergy Severe Anaphylaxis Uncoded 08/08/18 10:28 Review of Systems ROS Statement: Those systems with pertinent positive or pertinent negative responses have been documented in the HPI. ROS Other: All systems not noted in ROS Statement are negative. Past Medical History Past Medical History: COPD, CVA/TIA, Hypertension, Myocardial Infarction ([place]) Additional Past Medical History / Comment(s): degenerative disc, knee pain, dvt, has a 3 cyst in left breast Last Myocardial Infarction Date:: age 54 History of Any Multi-Drug Resistant Organisms: None Reported Past Surgical History: Adenoidectomy, Tonsillectomy Additional Past Surgical History / Comment(s): tumor removed from left fallopian tube - non cancerous, colonoscopy Past Anesthesia/Blood Transfusion Reactions: No Reported Reaction Past Psychological History: Anxiety, Depression Smoking Status: Former smoker Past Alcohol Use History: Rare Past Drug Use History: None Reported - Past Family History Mother Family Medical History: Hypertension Brother(s) Family Medical History: Diabetes Mellitus General Exam Limitations: no limitations General appearance: alert, in no apparent distress Head exam: Present: atraumatic, normocephalic, normal inspection Eye exam: Present: normal appearance, PERRL, EOMI. Absent: scleral icterus, conjunctival injection, periorbital swelling ENT exam: Present: normal exam, mucous membranes moist Neck exam: Present: normal inspection, full ROM. Absent: tenderness, meningismus, lymphadenopathy Respiratory exam: Present: normal lung sounds bilaterally. Absent: respiratory distress, wheezes, rales, rhonchi, stridor Cardiovascular Exam: Present: regular rate, normal rhythm, normal heart sounds. Absent: systolic murmur, diastolic murmur, rubs, gallop, clicks GI/Abdominal exam: Present: soft, tenderness (minimal lower abdominal tenderness), normal bowel sounds. Absent: distended, guarding, rebound, rigid Back exam: Absent: CVA tenderness (R), CVA tenderness (L) Neurological exam: Present: alert, oriented X3, CN II-XII intact Psychiatric exam: Present: normal affect, normal mood Course Vital Signs 08/08/18 10:25 Temperature 98.5 F Pulse Rate 75 Respiratory 18 Rate Blood Pressure 129/80 O2 Sat by Pulse 98 Oximetry Medical Decision Making - Medical Decision Making 62-year-old female presents for abdominal pain and back pain and dysuria 1 week. Exam unremarkable. She does have some mild tenderness noted in the lower abdomen. CBC CMP are within normal limits. UA shows small blood. CT abdomen and pelvis shows focal areas of colonic thickening, likely colitis. There is continuing prominence of the pancreatic duct, recommend follow-up. Periumbilical hernia with colon peeking into it. This is nontender at the time no erythema. Degenerative changes within the spine noted. Discussed all these findings with patient. Pain is resolved at this time. Patient will follow up with primary care returning if she has any worsening symptoms. - Lab Data Result diagrams: 08/08/18 10:50 08/08/18 10:50 Lab Results 08/08/18 08/08/18 08/08/18 Range/Units 10:50 10:50 10:50 WBC 5.3 (3.8-10.6) k/uL RBC 4.18 (3.80-5.40) m/uL Hgb 12.5 (11.4-16.0) gm/dL Hct 38.7 (34.0-46.0) % MCV 92.7 (80.0-100.0) fL MCH 29.9 (25.0-35.0) pg MCHC 32.2 (31.0-37.0) g/dL RDW 15.0 (11.5-15.5) % Plt Count 260 (150-450) k/uL Neutrophils % 57 % Lymphocytes % 33 % Monocytes % 5 % Eosinophils % 3 % Basophils % 1 % Neutrophils # 3.0 (1.3-7.7) k/uL Lymphocytes # 1.7 (1.0-4.8) k/uL Monocytes # 0.3 (0-1.0) k/uL Eosinophils # 0.1 (0-0.7) k/uL Basophils # 0.0 (0-0.2) k/uL PT (9.0-12.0) sec INR (<1.2) APTT (22.0-30.0) sec Sodium 140 (137-145) mmol/L Potassium 4.1 (3.5-5.1) mmol/L Chloride 105 (98-107) mmol/L Carbon Dioxide 27 (22-30) mmol/L Anion Gap 8 mmol/L BUN 14 (7-17) mg/dL Creatinine 0.77 (0.52-1.04) mg/dL Est GFR (CKD-EPI)AfAm >90 (>60 ml/min/1.73 sqM) Est GFR (CKD-EPI)NonAf 84 (>60 ml/min/1.73 sqM) Glucose 78 (74-99) mg/dL Plasma Lactic Acid Elvis 1.0 (0.7-2.0) mmol/L Calcium 9.3 (8.4-10.2) mg/dL Total Bilirubin 0.5 (0.2-1.3) mg/dL AST 23 (14-36) U/L ALT 16 (9-52) U/L Alkaline Phosphatase 47 (38-126) U/L Total Protein 7.8 (6.3-8.2) g/dL Albumin 4.7 (3.5-5.0) g/dL Urine Color Urine Appearance (Clear) Urine pH (5.0-8.0) Ur Specific [place] (1.001-1.035) Urine Protein (Negative) Urine Glucose (UA) (Negative) Urine Ketones (Negative) Urine Blood (Negative) Urine Nitrite (Negative) Urine Bilirubin (Negative) Urine Urobilinogen (<2.0) mg/dL Ur Leukocyte Esterase (Negative) Urine RBC (0-5) /hpf Urine WBC (0-5) /hpf Ur Squamous Epith Cells (0-4) /hpf Urine Bacteria (None) /hpf Urine Mucus (None) /hpf 08/08/18 08/08/18 Range/Units 10:50 10:50 WBC (3.8-10.6) k/uL RBC (3.80-5.40) m/uL Hgb (11.4-16.0) gm/dL Hct (34.0-46.0) % MCV (80.0-100.0) fL MCH (25.0-35.0) pg MCHC (31.0-37.0) g/dL RDW (11.5-15.5) % Plt Count (150-450) k/uL Neutrophils % % Lymphocytes % % Monocytes % % Eosinophils % % Basophils % % Neutrophils # (1.3-7.7) k/uL Lymphocytes # (1.0-4.8) k/uL Monocytes # (0-1.0) k/uL Eosinophils # (0-0.7) k/uL Basophils # (0-0.2) k/uL PT 10.0 (9.0-12.0) sec INR 0.9 (<1.2) APTT 23.6 (22.0-30.0) sec Sodium (137-145) mmol/L Potassium (3.5-5.1) mmol/L Chloride (98-107) mmol/L Carbon Dioxide (22-30) mmol/L Anion Gap mmol/L BUN (7-17) mg/dL Creatinine (0.52-1.04) mg/dL Est GFR (CKD-EPI)AfAm (>60 ml/min/1.73 sqM) Est GFR (CKD-EPI)NonAf (>60 ml/min/1.73 sqM) Glucose (74-99) mg/dL Plasma Lactic Acid Elvis (0.7-2.0) mmol/L Calcium (8.4-10.2) mg/dL Total Bilirubin (0.2-1.3) mg/dL AST (14-36) U/L ALT (9-52) U/L Alkaline Phosphatase (38-126) U/L Total Protein (6.3-8.2) g/dL Albumin (3.5-5.0) g/dL Urine Color Yellow Urine Appearance Clear (Clear) Urine pH 5.5 (5.0-8.0) Ur Specific [place] 1.021 (1.001-1.035) Urine Protein Negative (Negative) Urine Glucose (UA) Negative (Negative) Urine Ketones Negative (Negative) Urine Blood Trace H (Negative) Urine Nitrite Negative (Negative) Urine Bilirubin Negative (Negative) Urine Urobilinogen <2.0 (<2.0) mg/dL Ur Leukocyte Esterase Negative (Negative) Urine RBC 1 (0-5) /hpf Urine WBC <1 (0-5) /hpf Ur Squamous Epith Cells 1 (0-4) /hpf Urine Bacteria Rare H (None) /hpf Urine Mucus Rare H (None) /hpf Disposition Clinical Impression: Colitis, Hematuria Disposition: HOME SELF-CARE Condition: Good Instructions (If sedation given, give patient instructions): Colitis (ED), Low Back Strain (ED) Additional Instructions: Please follow up with primary care in 1-[address] findings including hematuria, colitis, pancreatic duct enlargement, umbilical hernia. Return to the ER if you have any worsening symptoms. Is patient prescribed a controlled substance at d/c from ED?: No Referrals: Iván Naik MD [Primary Care Provider] - 1-2 days Time of Disposition: 13:55
[2018-08-08] MEDS: SODIUM CHLORIDE 0.9% 500 ML 500 ML IV SCH (10:58)
[2018-08-08 11:22] LABS: Basophils % (A) 1 %; Eosinophils # (A) 0.1 k/uL (0-0.7); Eosinophils % (A) 3 %; HCT 38.7 % (34.0-46.0); HGB 12.5 gm/dL (11.4-16.0); Lymphocytes # (A) 1.7 k/uL (1.0-4.8); Lymphocytes % (A) 33 %; MCH 29.9 pg (25.0-35.0); MCHC 32.2 g/dL (31.0-37.0); MCV 92.7 fL (80.0-100.0); Mean Platelet Volume 8.6; Monocytes # (A) 0.3 k/uL (0-1.0); Monocytes % (A) 5 %; Neutrophils % (A) 57 %; Platelet Count 260 k/uL (150-450); RBC 4.18 m/uL (3.80-5.40); WBC 5.3 k/uL (3.8-10.6)
[2018-08-08 11:38] LABS: ALT 16 U/L (9-52); AST 23 U/L (14-36); Albumin 4.7 g/dL (3.5-5.0); Alkaline Phosphatase 47 U/L (38-126); Anion Gap 8 mmol/L; Blood Urea Nitrogen 14 mg/dL (7-17); Calcium 9.3 mg/dL (8.4-10.2); Carbon Dioxide 27 mmol/L (22-30); Chloride 105 mmol/L (98-107); Glucose 78 mg/dL (74-99); Potassium 4.1 mmol/L (3.5-5.1); Sodium 140 mmol/L (137-145); Total Bilirubin 0.5 mg/dL (0.2-1.3); Total Protein 7.8 g/dL (6.3-8.2)
[2018-08-08 11:39] LABS: Appearance,Urine Clear (Clear); Bacteria,Urine Rare /hpf; Bilirubin,Urine Negative (Negative); Blood,Urine Trace (Negative); Color,Urine Yellow; Glucose,Urine (UA) Negative (Negative); Ketones,Urine Negative (Negative); Leukocyte Esterase,Urine Negative (Negative); Mucus,Urine Rare /hpf; Nitrite,Urine Negative (Negative); PH, Urine 5.5 (5.0-8.0); Protein,Urine Negative (Negative); RBC,Urine 1 /hpf (0-5); Specific Gravity,Urine 1.021 (1.001-1.035); Squamous Epithelial Cell,Urine 1 /hpf (0-4); Urobilinogen,Urine <2.0 mg/dL (<2.0); WBC,Urine <1 /hpf (0-5)
[2018-08-08 11:45] LABS: INR 0.9 (<1.2); Partial Thromboplastin Time 23.6 sec (22.0-30.0)
--- NOTE | 2018-08-08 13:21 | CT ---
EXAMINATION TYPE: CT abdomen pelvis w con DATE OF EXAM: 08/08/2018 REFERENCE: Previous study dated 01/27/2018. HISTORY: Pain HISTORY: Back pain with burning and freq. urination CT DLP: 1061.7 mGy Automated exposure control for dose reduction was used. TECHNIQUE: Helical acquisition through the abdomen and pelvis was obtained following the oral ingesti on of without Oral Contrast and following intravenous administration of 100 mL of Isovue 300. The yanna a was reformatted in axial, coronal and sagittal projections. FINDINGS: There is platelike atelectasis at the left lung base. There is minimal atelectatic change in the right lung base. There is no pleural or pericardial fluid. Heart size upper limits of normal. Within the abdomen, the gallbladder is partially collapsed. Liver and spleen are normal. Both adrenal glands are normal. The pancreatic duct remains prominent measuring approximately 3.3 mm. The pancreas is otherwise unrem arkable. There is no significant retroperitoneal, iliac or inguinal adenopathy. The bladder is unremarkable. The uterus is tilted towards the left. The ovaries are not clearly visua lized. There is a focal mucosal thickening involving the left side of the colon. There is no significant div erticular change. The appendix is normal. Small bowel loops are normal in caliber. There is a periumbilical hernia containing fat only which has: Peaking into it. There is no free flui d and no free air. Degenerative disc disease and hypertrophic spondylosis throughout the lumbar spine. There is a vacuum disc phenomena present at L3-4. IMPRESSION: 1. FOCAL AREAS OF COLONIC THICKENING. PLEASE CORRELATE FOR COLITIS. 2. CONTINUING PROMINENCE OF THE PANCREATIC DUCT. IF NOT ALREADY PERFORMED ERCP VERSUS MRCP WOULD BE S UGGESTED. 3. PERIUMBILICAL HERNIA WITH: PEAKING INTO IT. 4. DEGENERATIVE CHANGES WITHIN THE SPINE.
[2018-08-08 14:11] VITALS: BP 131/80; PULSE 77; RESP 16
== END 2018-08-08 14:10 | disposition home or self-care (01) ==
LOC: EC 10:21
DX: K52.9 Noninfective gastroenteritis and colitis, unspecified (principal); R31.9 Hematuria, unspecified; K42.9 Umbilical hernia without obstruction or gangrene; M54.9 Dorsalgia, unspecified; R30.0 Dysuria; R35.0 Frequency of micturition; R39.15 Urgency of urination; I10 Essential (primary) hypertension; I25.2 Old myocardial infarction; J44.9 Chronic obstructive pulmonary disease, unspecified; Z87.891 Personal history of nicotine dependence; Z79.891 Long term (current) use of opiate analgesic; Z79.899 Other long term (current) drug therapy; Z91.013 Allergy to seafood
CPT/HCPCS: 36415; 80053; 83605; 85025; 85610; 85730; 81001; 87040; 87086; 74177; 99284; 96374; 96361 ×2; J2270; Q9967

== ENCOUNTER → 2018-09-03 | Outpatient (CLI) | payer OTHER ==
--- NOTE | 2018-09-03 15:54 | MR ---
MR abdomen and pelvis with and without contrast HISTORY: Abnormal findings on diagnostic imaging Multiplanar multisequence and postcontrast images through the abdomen following 7.5 cc Gadavist IV. Correlation CT abdomen pelvis 08/08/2018 There is a spinal curvature present. Lung bases are clear. Signal drop on out of phase imaging within the liver suggests hepatic steatosis. Gallbladder is unremarkable. Kidneys are unremarkable. Adrenal glands are normal. Pancreas shows mild prominence of the pancreatic duct. Aorta shows normal caliber . No retroperitoneal adenopathy. Spleen is normal. No abnormal enhancement following contrast adminis tration. There is a small hiatal hernia present. No evident bowel obstruction. Small umbilical hernia again noted. Fecal debris present throughout the distribution of the colon. No evident appendicitis. Uterus and adnexal structures are within normal limits. Urinary bladder is normal. No pelvic adenopat hy or free fluid. IMPRESSION: Mild prominence of the pancreatic duct
== END | disposition home or self-care (01) ==
LOC: RADMRIMAIN 08:06
DX: K86.89 Other specified diseases of pancreas (principal)
CPT/HCPCS: 72197; 74183; A9585

== ENCOUNTER 2018-10-11 08:42 | Emergency (ER) | payer OTHER ==
[2018-10-11 08:46] VITALS: BP 122/76; PULSE 70; RESP 18; TEMP 98.3
--- NOTE | 2018-10-11 09:12 | ED ---
Skin/Abscess/FB HPI - General Chief complaint: Skin/Abscess/Foreign Body Stated complaint: RT THUMB PROBLEM Time Seen by Provider: 10/11/18 08:48 Source: patient, RN notes reviewed Mode of arrival: ambulatory Limitations: no limitations - History of Present Illness Initial comments: 62-year-old female presents emergency Department chief complaint right thumb pain. Patient states his pain along the edge of her nail. Patient states started turning different colors. Patient denies any fevers or chills no trauma. She does state that she goes and has her nails done in which they cut back. Cuticles. Patient denies any prior infections - Related Data Home Medications Medication Instructions Recorded Confirmed HYDROcodone/APAP 10-325MG [[place] 1 tab PO BID PRN 02/16/14 10/11/18 10] Montelukast [Singulair] 10 mg PO DAILY 02/16/14 10/11/18 amLODIPine [Norvasc] 5 mg PO HS 02/16/14 10/11/18 ALPRAZolam [Xanax] 0.5 mg PO TID PRN 01/13/18 10/11/18 Multivitamins, Thera [Multivitamin 1 tab PO DAILY 01/13/18 10/11/18 (formulary)] Vitamin B Complex 1 cap PO DAILY 01/27/18 10/11/18 Cholesterol Unknown 1 tab PO HS 10/11/18 10/11/18 Previous Rx's Medication Instructions Recorded Cephalexin [Keflex] 500 mg PO Q6HR #28 cap 10/11/18 Allergies Allergy/AdvReac Type Severity Reaction Status Date / Time SWAI FISH Allergy Severe Anaphylaxis Uncoded 10/11/18 09:03 Review of Systems ROS Statement: Those systems with pertinent positive or pertinent negative responses have been documented in the HPI. ROS Other: All systems not noted in ROS Statement are negative. Past Medical History Past Medical History: COPD, CVA/TIA, Hypertension, Myocardial Infarction ([place]) Additional Past Medical History / Comment(s): degenerative disc, knee pain, dvt, has a 3 cyst in left breast Last Myocardial Infarction Date:: age 54 History of Any Multi-Drug Resistant Organisms: None Reported Past Surgical History: Adenoidectomy, Tonsillectomy Additional Past Surgical History / Comment(s): tumor removed from left fallopian tube - non cancerous, colonoscopy Past Anesthesia/Blood Transfusion Reactions: No Reported Reaction Past Psychological History: Anxiety, Depression Smoking Status: Former smoker Past Alcohol Use History: Rare Past Drug Use History: None Reported - Past Family History Mother Family Medical History: Hypertension Brother(s) Family Medical History: Diabetes Mellitus General Exam Limitations: no limitations General appearance: alert, in no apparent distress Head exam: Present: atraumatic, normocephalic, normal inspection Respiratory exam: Present: normal lung sounds bilaterally. Absent: respiratory distress, wheezes, rales, rhonchi, stridor Cardiovascular Exam: Present: regular rate, normal rhythm, normal heart sounds. Absent: systolic murmur, diastolic murmur, rubs, gallop, clicks Extremities exam: Present: other (Right thumb there is no swelling along the nail, and nail fold. Patient has tenderness with palpation there is no opening, drainage Or refill less than 2 seconds) Skin exam: Present: warm, dry, intact, normal color. Absent: rash Course Vital Signs 10/11/18 08:44 Temperature 98.3 F Pulse Rate 70 Respiratory 18 Rate Blood Pressure 122/76 O2 Sat by Pulse 96 Oximetry Procedures - Procedures Initial comment: Right thumb paronychia 18-gauge 0 was used open the pocket along the nail fold with no palpitations no pain. The drainage removed. Disposition Clinical Impression: Paronychia Disposition: HOME SELF-CARE Condition: Stable Instructions (If sedation given, give patient instructions): Paronychia (ED) Additional Instructions: Please return to the Emergency Department if symptoms worsen or any other concerns. Prescriptions: Cephalexin [Keflex] 500 mg PO Q6HR #28 cap Is patient prescribed a controlled substance at d/c from ED?: No Referrals: Itz Saldana MD [Primary Care Provider] - 1-2 days Time of Disposition: 09:12
== END 2018-10-11 09:20 | disposition home or self-care (01) ==
LOC: EC 08:42
DX: L03.011 Cellulitis of right finger (principal); J44.9 Chronic obstructive pulmonary disease, unspecified; I10 Essential (primary) hypertension; I25.2 Old myocardial infarction; Z87.891 Personal history of nicotine dependence; Z91.013 Allergy to seafood; Z79.899 Other long term (current) drug therapy; Z86.73 Personal history of transient ischemic attack (TIA), and cerebral infarction without residual deficits
CPT/HCPCS: 10060; 99283

== ENCOUNTER → 2018-10-11 | Outpatient (CLI) | payer OTHER ==
--- NOTE | 2018-10-11 11:59 | MM ---
Reason for exam: screening (asymptomatic). Last mammogram was performed 1 year and 1 month ago. History: Patient is postmenopausal. Family history of breast cancer in maternal aunt. MG discontinued stereo core RT of the right breast, September 23, 2016. Physical Findings: A clinical breast exam by your physician is recommended on an annual basis and results should be correlated with mammographic findings. MG Screening Mammo w CAD Bilateral CC and MLO view(s) were taken. Prior study comparison: August 28, 2017, bilateral MG diagnostic mammo w CAD PENG. September 04, 2016, right breast MG follow up RT no charge. The breast tissue is heterogeneously dense. This may lower the sensitivity of mammography. No suspicious abnormality. No significant changes when compared with prior studies. ASSESSMENT: Negative, BI-RAD 1 RECOMMENDATION: Routine screening mammogram of both breasts in 1 year.
== END | disposition home or self-care (01) ==
LOC: RADMAMWWP 08:04
PROVIDERS: ATTEND Internal Medicine
DX: Z12.31 Encounter for screening mammogram for malignant neoplasm of breast (principal)
CPT/HCPCS: 77067

== ENCOUNTER → 2018-12-01 | Outpatient (CLI) | payer OTHER ==
[2018-12-01 10:18] VITALS: BP 125/80; PULSE 67; RESP 18; TEMP 98.2; BMI 37.0
--- NOTE | 2018-12-01 11:47 | P.HPOB ---
History of Present Illness H&P Date: 12/01/18 Chief Complaint: The patient is here for her routine gynecologic exam. This is a 63 year old with an LMP of 2014. She is without gynecologic complaints and denies any postmenopausal bleeding. She states she has had some urinary issues with urinary urgency and stinging and has undergone workup for this and apparently had no evidence of infection. She had an MRI of the abdomen and pelvis on 09/03/2018 which showed the uterus and adnexal structures to be within normal limits. The bladder appeared normal. Review of Systems She has gained about 20 pounds over the last year. She denies respiratory or cardiac problems. GI: She has had issues with constipation and diarrhea. She is seeing a GI specialist for this. Past Medical History Past Medical History: COPD, CVA/TIA, Hypertension, Myocardial Infarction ([place]) Additional Past Medical History / Comment(s): degenerative disc, knee pain, dvt. 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 Last Myocardial Infarction Date:: age 54 History of Any Multi-Drug Resistant Organisms: None Reported Past Surgical History: Adenoidectomy, Tonsillectomy Additional Past Surgical History / Comment(s): Adnexal cystectomy 2013(benign), colonoscopy 2018(4th, next after 5yrs). Past Anesthesia/Blood Transfusion Reactions: No Reported Reaction Past Psychological History: Anxiety, Depression Smoking Status: Former smoker Past Alcohol Use History: Rare Additional Past Alcohol Use History / Comment(s): 3 drinks weekly Past Drug Use History: Cocaine Additional Drug Use History / Comment(s): cocaine use in 20-30s, not currently Additional History: She has had some marital problems in the past. She has been since 1992 and is considered disabled. - Past Family History Mother Family Medical History: Hypertension, Myocardial Infarction ([place]) Additional Family Medical History / Comment(s): Uterine fibroids. Brother(s) Family Medical History: Diabetes Mellitus Father Family Medical History: Cancer Additional Family Medical History / Comment(s): Colon cancer. Medications and Allergies Home Medications Medication Instructions Recorded Confirmed Type HYDROcodone/APAP 10-325MG [[place] 1 tab PO BID PRN 02/16/14 12/01/18 History 10] Montelukast [Singulair] 10 mg PO DAILY 02/16/14 12/01/18 History amLODIPine [Norvasc] 5 mg PO HS 02/16/14 12/01/18 History ALPRAZolam [Xanax] 0.5 mg PO TID PRN 01/13/18 12/01/18 History Multivitamins, Thera [Multivitamin 1 tab PO DAILY 01/13/18 12/01/18 History (formulary)] Vitamin B Complex 1 cap PO DAILY 01/27/18 12/01/18 History ALPRAZolam [Xanax] 0.5 mg PO TID 12/01/18 12/01/18 History Atorvastatin [Lipitor] 20 mg PO DAILY 12/01/18 12/01/18 History Linaclotide [Linzess] 72 mcg PO DAILY 12/01/18 12/01/18 History Allergies Allergy/AdvReac Type Severity Reaction Status Date / Time SWAI FISH Allergy Severe Anaphylaxis Uncoded 12/01/18 10:09 Exam Vital Signs Temp Pulse Resp BP Pulse Ox 12/01/18 10:15 98.2 F 67 18 125/80 98 Intake and Output 11/30/18 12/01/18 12/01/18 22:59 06:59 14:59 Other: Weight 86.183 kg Height 5 feet 0 inches. Weight 190 pounds. BMI 37.1. This is a well-developed well-nourished black female who is alert and oriented times 3 in no acute distress. HEENT: Within normal limits. NECK: Supple without mass or thyromegaly. CHEST AND LUNGS: Clear to auscultation. HEART: Regular rate and rhythm. BREASTS: Are without mass or discharge. AXILLARY EXAM: Negative for adenopathy. BACK: Negative for CVA tenderness. ABDOMEN: Soft, nontender, without palpable masses. PELVIC EXAM: Normal external genitalia with mild atrophy. Cervix and vagina appear normal mild atrophy. There is no unusual discharge. There is no evidence of prolapse. The uterus is midposition, nongravid size and nontender. There are no palpable adnexal masses or tenderness. RECTAL EXAM: Rectovaginal exam is negative for mass or tenderness and is negative for occult blood. EXTREMITIES: Nontender. IMPRESSION: 1. 63-year-old menopausal female with normal gynecologic exam. 2. History of urinary urgency with no significant physical findings on exam today. The patient states she has had urinary workup including urine testing which she states was negative for infection. PLAN: 1. Pap smear was performed. 2. Self breast awareness was discussed with the patient. 3. Screening mammogram was done on 10/11/2018 and was benign. She will repeat this in 1 year. 4. She will follow up with her primary care physician regarding her urinary symptoms. 5. She was advised to return in one year for her annual well woman exam.
== END | disposition home or self-care (01) ==
LOC: WWCWWP 09:50
PROVIDERS: ATTEND Obstetrics & Gynecology
DX: Z53.9 Procedure and treatment not carried out, unspecified reason (principal)

== ENCOUNTER 2019-04-06 07:28 | Emergency (ER) | payer OTHER ==
[2019-04-06 07:42] VITALS: TEMP 97.9
[2019-04-06] MEDS ORDERED: ONDANSETRON 4 MG/2 ML VIAL IVP STA (08:02)
[2019-04-06] MEDS ORDERED: KETOROLAC 30 MG/ML 1 ML VIAL IVP STA (08:02)
[2019-04-06] MEDS ORDERED: SODIUM CHLORIDE 0.9% 1,000 ML IV STA (08:02)
[2019-04-06] MEDS ORDERED: SODIUM CHLORIDE 0.9% 500 ML 500 ML IV STA (08:02)
--- NOTE | 2019-04-06 08:06 | ED ---
Abdominal Pain HPI - General Chief Complaint: Abdominal Pain Stated Complaint: Back Pain Time Seen by Provider: 04/06/19 07:50 Source: patient, RN notes reviewed Mode of arrival: wheelchair Limitations: no limitations - History of Present Illness Initial Comments: This is a 63-year-old female with history of hypertension, NH, CVA/TIA, and COPD who states she's also had urinary tract infections in the past a prior history kidney stones who is had the onset over last 2 days of bilateral flank pain started out as mild she can't describe it as being sharp dull achy chest pain she states right now it's 8/10 severity she also notices that she seemed like she can't totally avoid when she tries to urinate he denies any hematuria different smell or appearance of the urine. She has had nausea no vomiting she is doesn't feel that she states. No other complaints or modifying factors at this time no cough on the ordinary shortness of breath the pain does not get worse with deep breathing. MD Complaint: flank pain - Related Data Home Medications Medication Instructions Recorded Confirmed HYDROcodone/APAP 10-325MG [[place] 1 tab PO BID PRN 02/16/14 12/01/18 10] Montelukast [Singulair] 10 mg PO DAILY 02/16/14 12/01/18 amLODIPine [Norvasc] 5 mg PO HS 02/16/14 12/01/18 ALPRAZolam [Xanax] 0.5 mg PO TID PRN 01/13/18 12/01/18 Multivitamins, Thera [Multivitamin 1 tab PO DAILY 01/13/18 12/01/18 (formulary)] Vitamin B Complex 1 cap PO DAILY 01/27/18 12/01/18 ALPRAZolam [Xanax] 0.5 mg PO TID 12/01/18 12/01/18 Atorvastatin [Lipitor] 20 mg PO DAILY 12/01/18 12/01/18 Linaclotide [Linzess] 72 mcg PO DAILY 12/01/18 12/01/18 Allergies Allergy/AdvReac Type Severity Reaction Status Date / Time SWAI FISH Allergy Severe Anaphylaxis Uncoded 04/06/19 07:43 Review of Systems ROS Statement: Those systems with pertinent positive or pertinent negative responses have been documented in the HPI. ROS Other: All systems not noted in ROS Statement are negative. Past Medical History Past Medical History: COPD, CVA/TIA, Hypertension, Myocardial Infarction (NH) Additional Past Medical History / Comment(s): degenerative disc, knee pain, dvt. 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 Last Myocardial Infarction Date:: age 54 History of Any Multi-Drug Resistant Organisms: None Reported Past Surgical History: Adenoidectomy, Tonsillectomy Additional Past Surgical History / Comment(s): Adnexal cystectomy 2014(benign), colonoscopy 2018(4th, next after 5yrs). Past Anesthesia/Blood Transfusion Reactions: No Reported Reaction Past Psychological History: Anxiety, Depression Smoking Status: Former smoker Past Alcohol Use History: Rare Past Drug Use History: Cocaine - Past Family History Mother Family Medical History: Hypertension, Myocardial Infarction (NH) Additional Family Medical History / Comment(s): Uterine fibroids. Brother(s) Family Medical History: Diabetes Mellitus Father Family Medical History: Cancer Additional Family Medical History / Comment(s): Colon cancer. General Exam - General Exam Comments Initial Comments: This is a well-developed well-nourished awake alert oriented history female Limitations: no limitations General appearance: alert, anxious Head exam: Present: atraumatic, normocephalic, normal inspection Eye exam: Present: normal appearance, PERRL, EOMI. Absent: scleral icterus, conjunctival injection, periorbital swelling ENT exam: Present: normal exam, mucous membranes moist Neck exam: Present: normal inspection, full ROM. Absent: tenderness, meningismus, lymphadenopathy Respiratory exam: Present: normal lung sounds bilaterally. Absent: respiratory distress, wheezes, rales, rhonchi, stridor Cardiovascular Exam: Present: regular rate, normal rhythm, normal heart sounds. Absent: systolic murmur, diastolic murmur, rubs, gallop, clicks GI/Abdominal exam: Present: soft, normal bowel sounds. Absent: distended, tenderness, guarding, rebound, rigid, bruit Rectal exam: Present: deferred Extremities exam: Present: normal inspection, full ROM, normal capillary refill. Absent: tenderness, pedal edema, joint swelling, calf tenderness Back exam: Present: normal inspection, full ROM, CVA tenderness (R), CVA tenderness (L). Absent: rash noted Neurological exam: Present: alert, oriented X3, CN II-XII intact Psychiatric exam: Present: normal affect, normal mood Skin exam: Present: warm, dry, intact, normal color. Absent: rash Course Vital Signs 04/06/19 07:40 Temperature 97.9 F Pulse Rate 63 Respiratory 16 Rate Blood Pressure 136/73 O2 Sat by Pulse 97 Oximetry Medical Decision Making - Medical Decision Making Patient is currently feeling much improved and I did discuss the need to get a post void residual patient would like to go home at this time. She will follow- up with her physician. She will return if needed she did state that she's been having some trouble urinating recently. There is negative at this time no evidence of UTI the current presentation is likely secondary to myofascial pain - Lab Data Result diagrams: 04/06/19 08:20 04/06/19 08:20 Lab Results 04/06/19 04/06/19 04/06/19 Range/Units 08:20 08:20 08:20 WBC 5.7 (3.8-10.6) k/uL RBC 4.24 (3.80-5.40) m/uL Hgb 12.9 (11.4-16.0) gm/dL Hct 39.8 (34.0-46.0) % MCV 93.8 (80.0-100.0) fL MCH 30.3 (25.0-35.0) pg MCHC 32.3 (31.0-37.0) g/dL RDW 13.0 (11.5-15.5) % Plt Count 217 (150-450) k/uL Neutrophils % 56 % Lymphocytes % 33 % Monocytes % 5 % Eosinophils % 2 % Basophils % 2 % Neutrophils # 3.2 (1.3-7.7) k/uL Lymphocytes # 1.9 (1.0-4.8) k/uL Monocytes # 0.3 (0-1.0) k/uL Eosinophils # 0.1 (0-0.7) k/uL Basophils # 0.1 (0-0.2) k/uL Sodium 139 (137-145) mmol/L Potassium 4.2 (3.5-5.1) mmol/L Chloride 102 (98-107) mmol/L Carbon Dioxide 27 (22-30) mmol/L Anion Gap 10 mmol/L BUN 13 (7-17) mg/dL Creatinine 0.75 (0.52-1.04) mg/dL Est GFR (CKD-EPI)AfAm >90 (>60 ml/min/1.73 sqM) Est GFR (CKD-EPI)NonAf 86 (>60 ml/min/1.73 sqM) Glucose 101 H (74-99) mg/dL Calcium 9.2 (8.4-10.2) mg/dL Total Bilirubin 0.6 (0.2-1.3) mg/dL AST 32 (14-36) U/L ALT 24 (4-34) U/L Alkaline Phosphatase 51 (38-126) U/L CK-MB (CK-2) 0.5 (0.0-2.4) ng/mL Total Protein 8.2 (6.3-8.2) g/dL Albumin 4.6 (3.5-5.0) g/dL Amylase 96 (30-110) U/L Lipase 139 (23-300) U/L Urine Color Urine Appearance (Clear) Urine pH (5.0-8.0) Ur Specific [place] (1.001-1.035) Urine Protein (Negative) Urine Glucose (UA) (Negative) Urine Ketones (Negative) Urine Blood (Negative) Urine Nitrite (Negative) Urine Bilirubin (Negative) Urine Urobilinogen (<2.0) mg/dL Ur Leukocyte Esterase (Negative) Urine RBC (0-5) /hpf Urine WBC (0-5) /hpf Ur Squamous Epith Cells (0-4) /hpf Urine Bacteria (None) /hpf Urine Mucus (None) /hpf 04/06/19 Range/Units 08:20 WBC (3.8-10.6) k/uL RBC (3.80-5.40) m/uL Hgb (11.4-16.0) gm/dL Hct (34.0-46.0) % MCV (80.0-100.0) fL MCH (25.0-35.0) pg MCHC (31.0-37.0) g/dL RDW (11.5-15.5) % Plt Count (150-450) k/uL Neutrophils % % Lymphocytes % % Monocytes % % Eosinophils % % Basophils % % Neutrophils # (1.3-7.7) k/uL Lymphocytes # (1.0-4.8) k/uL Monocytes # (0-1.0) k/uL Eosinophils # (0-0.7) k/uL Basophils # (0-0.2) k/uL Sodium (137-145) mmol/L Potassium (3.5-5.1) mmol/L Chloride (98-107) mmol/L Carbon Dioxide (22-30) mmol/L Anion Gap mmol/L BUN (7-17) mg/dL Creatinine (0.52-1.04) mg/dL Est GFR (CKD-EPI)AfAm (>60 ml/min/1.73 sqM) Est GFR (CKD-EPI)NonAf (>60 ml/min/1.73 sqM) Glucose (74-99) mg/dL Calcium (8.4-10.2) mg/dL Total Bilirubin (0.2-1.3) mg/dL AST (14-36) U/L ALT (4-34) U/L Alkaline Phosphatase (38-126) U/L CK-MB (CK-2) (0.0-2.4) ng/mL Total Protein (6.3-8.2) g/dL Albumin (3.5-5.0) g/dL Amylase (30-110) U/L Lipase (23-300) U/L Urine Color Light Yellow Urine Appearance Cloudy H (Clear) Urine pH 7.0 (5.0-8.0) Ur Specific [place] 1.007 (1.001-1.035) Urine Protein Negative (Negative) Urine Glucose (UA) Negative (Negative) Urine Ketones Negative (Negative) Urine Blood Negative (Negative) Urine Nitrite Negative (Negative) Urine Bilirubin Negative (Negative) Urine Urobilinogen <2.0 (<2.0) mg/dL Ur Leukocyte Esterase Negative (Negative) Urine RBC 1 (0-5) /hpf Urine WBC 1 (0-5) /hpf Ur Squamous Epith Cells <1 (0-4) /hpf Urine Bacteria Rare H (None) /hpf Urine Mucus Rare H (None) /hpf - Radiology Data Radiology results: report reviewed (I did review the imaging and reports no evidence of acute findings or is a dilated pancreatic duct is apparently chronic. Some urine noted in the bladder no kidney stones.), image reviewed Disposition Clinical Impression: Flank pain, Myofascial muscle pain Disposition: HOME SELF-CARE Condition: Good Instructions (If sedation given, give patient instructions): Musculoskeletal Pain (ED) Is patient prescribed a controlled substance at d/c from ED?: No Referrals: Itz Saldana MD [Primary Care Provider] - 1-2 days
--- NOTE | 2019-04-06 08:30 | XR ---
EXAMINATION TYPE: XR KUB DATE OF EXAM: 04/06/2019 8:21 AM CLINICAL HISTORY: Abdominal pain and left flank pain TECHNIQUE: Single supine KUB image of the abdomen is obtained. COMPARISON: None. FINDINGS: Diffuse osseous demineralization is seen with levoscoliosis of the lumbar spine and moderat e to severe degenerative change of the lumbar spine. No dilated large or small bowel. No radiopaque s uspicious calcification in the left mid abdomen. Calcific density along the distal 12th left rib is s een presumably within bowel. IMPRESSION: No suspicious abdominal or pelvic calcification patient with left flank pain. Nonobstruct willa bowel gas pattern.
[2019-04-06 08:50] LABS: Basophils # (A) 0.1 k/uL (0-0.2); Basophils % (A) 2 %; Eosinophils # (A) 0.1 k/uL (0-0.7); Eosinophils % (A) 2 %; HCT 39.8 % (34.0-46.0); HGB 12.9 gm/dL (11.4-16.0); Lymphocytes # (A) 1.9 k/uL (1.0-4.8); Lymphocytes % (A) 33 %; MCH 30.3 pg (25.0-35.0); MCHC 32.3 g/dL (31.0-37.0); MCV 93.8 fL (80.0-100.0); Monocytes # (A) 0.3 k/uL (0-1.0); Monocytes % (A) 5 %; Neutrophils # (A) 3.2 k/uL (1.3-7.7); Neutrophils % (A) 56 %; Platelet Count 217 k/uL (150-450); RBC 4.24 m/uL (3.80-5.40); WBC 5.7 k/uL (3.8-10.6)
[2019-04-06 08:59] LABS: Appearance,Urine Cloudy (Clear); Bacteria,Urine Rare /hpf; Bilirubin,Urine Negative (Negative); Blood,Urine Negative (Negative); Color,Urine Light Yellow; Glucose,Urine (UA) Negative (Negative); Ketones,Urine Negative (Negative); Leukocyte Esterase,Urine Negative (Negative); Mucus,Urine Rare /hpf; Nitrite,Urine Negative (Negative); Protein,Urine Negative (Negative); RBC,Urine 1 /hpf (0-5); Specific Gravity,Urine 1.007 (1.001-1.035); Squamous Epithelial Cell,Urine <1 /hpf (0-4); Urobilinogen,Urine <2.0 mg/dL (<2.0); WBC,Urine 1 /hpf (0-5)
[2019-04-06 09:02] LABS: ALT 24 U/L (4-34); AST 32 U/L (14-36); African American GFR (CKD) >90 (>60 ml/min/1.73 sqM); Albumin 4.6 g/dL (3.5-5.0); Alkaline Phosphatase 51 U/L (38-126); Amylase 96 U/L (30-110); Anion Gap 10 mmol/L; Blood Urea Nitrogen 13 mg/dL (7-17); Calcium 9.2 mg/dL (8.4-10.2); Carbon Dioxide 27 mmol/L (22-30); Chloride 102 mmol/L (98-107); Glucose 101 mg/dL (74-99); Non-African American GFR(CKD) 86 (>60 ml/min/1.73 sqM); Potassium 4.2 mmol/L (3.5-5.1); Sodium 139 mmol/L (137-145); Total Bilirubin 0.6 mg/dL (0.2-1.3); Total Protein 8.2 g/dL (6.3-8.2)
[2019-04-06] MEDS ORDERED: HYDROmorphone 1 MG/ML 1 ML SYRINGE IVP STA (09:18)
--- NOTE | 2019-04-06 10:09 | CT ---
EXAMINATION TYPE: CT abdomen pelvis wo con DATE OF EXAM: 04/06/2019 COMPARISON: 08/08/2018 HISTORY: 62-year-old female Bilateral flank pain, left worse than right CT DLP: 958.9 mGycm. Automated exposure control for dose reduction was used. TECHNIQUE: Contiguous axial scanning of the abdomen and pelvis without IV contrast. Coronal and sagit bernie reconstructions performed. FINDINGS: Heart upper limits of normal in size without pericardial effusion. Strandy atelectasis posterior left base. No pleural effusion. Tiny hiatal hernia. Noncontrast appearance of the liver, gallbladder, adrenal glands, kidneys, and spleen show no gross a bnormality. Pancreas again shows mild generalized prominence of the main pancreatic duct at 5 mm. No dilated small bowel, free fluid, or free air. No mesenteric or retroperitoneal lymphadenopathy se en. Small to moderate sized periumbilical hernia redemonstrated. A very short segment of small bowel prot rudes just into the hernia. No obstructive changes. Normal appendix. Mild stool burden. No pericolonic inflammatory change. Bladder is urine distended. Uterus anteverted. Small bilateral ovaries are suggested. Pelvic phleboli ths. No abnormal fluid collection in the pelvis or pelvic lymphadenopathy. Bones: Degenerative changes right hip and mid to lower lumbar spine. Levoconvex scoliosis. IMPRESSION: 1. No nephrolithiasis or hydronephrosis. 2. Tiny hiatal hernia. 3. Small to moderate-sized fatty umbilical hernia with a short segment of small bowel just beginning to protrude into the hernia. No obstructive changes. 4. No acute inflammatory process identified in the abdomen or pelvis to explain patient's symptoms.
[2019-04-06 11:24] VITALS: BP 155/88; PULSE 60; RESP 18
== END 2019-04-06 11:22 | disposition home or self-care (01) ==
LOC: EC 07:28
DX: M79.18 Myalgia, other site (principal); R10.9 Unspecified abdominal pain; F41.9 Anxiety disorder, unspecified; F32.9 Major depressive disorder, single episode, unspecified; I10 Essential (primary) hypertension; I25.2 Old myocardial infarction; Z79.899 Other long term (current) drug therapy; Z91.013 Allergy to seafood; Z87.442 Personal history of urinary calculi; Z87.440 Personal history of urinary (tract) infections; Z86.718 Personal history of other venous thrombosis and embolism; Z86.73 Personal history of transient ischemic attack (TIA), and cerebral infarction without residual deficits; Z87.891 Personal history of nicotine dependence; Z98.890 Other specified postprocedural states
CPT/HCPCS: 36415; 80053; 82150; 82553; 83690; 85025; 81001; 74018; 74176; 99284; 96374; 96375 ×2; 96361; J2405; J1885; J1170

== ENCOUNTER → 2019-07-27 | Outpatient (CLI) | payer OTHER | END | disposition home or self-care (01) | LOC: LABWHC1 09:21 | PROVIDERS: ATTEND Internal Medicine Gastroenterology | DX: Z11.59 Encounter for screening for other viral diseases (principal) | CPT/HCPCS: 87635 ==

== ENCOUNTER 2019-07-29 09:04 | Day surgery (SDC) | payer OTHER ==
[2019-07-27 16:16] VITALS: BMI 37.8
[~2019-07-29 09:04] MED LIST: LACTATED RINGERS 1,000 ML IV SCH; LIDOCAINE 1% (10MG/ML) FOR IV START INTRADERMA PRN
[2019-07-29 09:30] VITALS: TEMP 97.3
[2019-07-29] MEDS ORDERED: PROPOFOL 10 MG/ML 20 ML VIAL IV ONE (10:33)
--- NOTE | 2019-07-29 10:46 | P.PCN ---
Date of Procedure: 07/29/19 Procedure(s) Performed: BRIEF HISTORY: Patient is a 63-year-old, pleasant, female scheduled for an upper endoscopy for evaluation of epigastric and periumbilical abdominal pain for the last 6 months duration. She denies any heartburn. His been on omeprazole 20 mg daily with no help. She is hence scheduled for an upper endoscopy to evaluate. PROCEDURE PERFORMED: Esophagogastroduodenoscopy with biopsy. PREOPERATIVE DIAGNOSIS: Chronic epigastric and periumbilical abdominal pain of 6 months duration. IV sedation per anesthesia. PROCEDURE: After informed consent was obtained, the patient was brought into the endoscopy unit. IV sedation was administered by Anesthesia under continuous monitoring. Initially the Olympus GIF-140 video endoscope was inserted into the mouth. Esophagus intubated without any difficulty. It was gradually advanced into the stomach and duodenum and carefully examined. The bulb and the second part of the duodenum appeared normal. Biopsies were done from the duodenum to rule out celiac disease. The scope at this time was withdrawn to the stomach, adequately insufflated with air, and upon careful examination, mucosa of the antrum had mild gastritis and biopsies were done from this area. The body, cardia and the fundus appeared normal. The scope was then withdrawn into the esophagus. Small sliding type hiatal hernia noted. The GE junction was located at 39 cm from the incisors. The esophagus appeared normal. There were no erosions or ulcerations seen and the patient tolerated the procedure well. IMPRESSION: 1. Mild antral gastritis. 2. Small hiatal hernia but no evidence of esophagitis or peptic ulcer disease. RECOMMENDATIONS: The findings of this examination were discussed with the patient as well as a family. She was advised to follow with the biopsy results. In the meantime she will continue with Prilosec 20 mg daily and follow antirefl ux measures She'll be seen in office in 2 weeks..
[2019-07-29 10:54] VITALS: RESP 18
[2019-07-29 11:19] VITALS: BP 128/76; PULSE 78
== END 2019-07-29 11:50 | disposition home or self-care (01) ==
LOC: ORWHC2ENDO 09:04
PROVIDERS: ATTEND Internal Medicine Gastroenterology
DX: K29.50 Unspecified chronic gastritis without bleeding (principal); K44.9 Diaphragmatic hernia without obstruction or gangrene; I25.2 Old myocardial infarction; I10 Essential (primary) hypertension; E78.5 Hyperlipidemia, unspecified; K58.9 Irritable bowel syndrome, unspecified; M19.90 Unspecified osteoarthritis, unspecified site; I69.354 Hemiplegia and hemiparesis following cerebral infarction affecting left non-dominant side; J44.9 Chronic obstructive pulmonary disease, unspecified; Z87.891 Personal history of nicotine dependence; Z79.51 Long term (current) use of inhaled steroids; Z79.899 Other long term (current) drug therapy; Z91.013 Allergy to seafood
CPT/HCPCS: 88305; 43239; J2704

== ENCOUNTER → 2019-08-23 | Outpatient (CLI) | payer OTHER ==
[2019-08-23 10:49] VITALS: BP 129/85; PULSE 65; RESP 20; TEMP 98.7
--- NOTE | 2019-08-23 11:41 | P.PN ---
Progress Note - Text Progress Note Date: 08/23/19 Chief Complaint: Worsening menopausal type symptoms over the past 1 year HPI: This is a 63-year-old G 10 P4154 with an LMP of 2013. The patient states she has been having worsening symptoms over the past year including emotional changes, crying easily, hot flashes, night sweats and trouble sleeping. She has also noticed menstrual-like cramping greatest on the left side. She notices this about every other day. She denies any postmenopausal bleeding. She had in upper endoscopy for upper abdominal pains which are different than the cramping that she describes today. She also has noticed greater facial hair which she plucks almost daily from her chin. She has been treated for anxiety with Xanax and Ativan. She also was given a prescription for an antidepressant medication, but this caused nausea and dizziness. She does not know the name of the antidepression medication. She has been menopausal since the time of an ovarian cystectomy in 2013 which was benign. She did not have significant menopausal symptoms at that time, but she states the symptoms started within the last year. Her pelvic discomfort and cramping is on the side of the previous cystectomy according to the patient. She states she has been under much higher levels of stress since her father in April 2019 and with the recent COVID pandemic. She denies any recreational drug use. She is sexually active and has been with the same sexual partner for many years. ROS: She is gained about 2 pounds over the past 9 months. She feels like she has been gaining weight. She denies respiratory or cardiac problems. GI: She has been experiencing some constipation. Also see the HPI. PE: Blood pressure: 129/85, Height: Feet 0 inches, Weight: 192 pounds, Temperature: 98.7, Pulse: 65. Pulse oximeter 98%. This is a well developed, well nourished, Black female who is alert and orientedx3, in no acute distress. Chest and lungs: Clear to auscultation Heart: Regular rate and rhythm Abdomen: Obese, soft, nontender without palpable masses. Pelvic exam: Normal external genitalia with mild atrophy. Cervix and vagina appear normal without unusual discharge. There is no cervical motion tenderness. There is no evidence of prolapse. The uterus is mid positioned, nongravid size, and nontender. There is mild left adnexal tenderness without palpable mass. There is no right adnexal tenderness or mass. Bimanual examination is somewhat limited secondary to her size. Impression: 1. 63-year-old menopausal female with multiple symptoms including vasomotor symptoms, emotional changes, difficulty sleeping. Although these are similar to menopausal symptoms, I doubt they are directly related to her menopausal change which occurred 6 years ago. Differential diagnosis will also include increased external stress, thyroid dysfunction and anxiety related symptoms. 2. Pelvic pain and cramping with mild left pelvic tenderness. Differential diagnosis will include recurrence of ovarian cyst, other ovarian neoplasm, constipation discomfort, or other GI problems. Plan: 1. Pelvic ultrasound will be scheduled. The order slip was given to the patient for this. 2. Blood studies will include testosterone, DHEAS, estradiol, FSH, and TSH. 3. I have asked the patient to get the name of her antidepression medication that she briefly took. We can consider a medication such as Paxil to see if this helps with her vasomotor symptoms and emotional changes. Time spent with the patient: 30 minutes
[2019-08-23 16:39] LABS: Estradiol 26.3 pg/mL; Follicle Stimulating Hormone 51.1 mIU/mL
--- NOTE | 2019-08-24 10:21 | P.PN ---
Progress Note - Text Progress Note Date: 08/24/19 OUTPATIENT FOLLOW-UP NOTE TEST(S)/RESULTS: Test results from 08/23/2019 include normal testosterone, DHEAS, and TSH. Estradiol and FSH were insistent with menopause. METHOD OF NOTIFICATION: The patient was notified by phone. PATIENT COMMENTS: The patient denies any suicidal ideation. She states the medication that she had tried was Lexapro which caused nausea and diarrhea. DIAGNOSIS: Multiple menopausal type symptoms including vasomotor symptoms, emotional changes and difficulty sleeping. DISCUSSION: We had a long discussion regarding the importance of good nutrition, regular exercise, and adequate sleep. I have stressed the importance of eating regularly and avoiding excess of sugar, sodium, and caffeine. We will have a trial of paroxetine 10 mg by mouth daily. She was instructed to call if she is having problems such as unusual thoughts or suicidal thoughts. PLAN: As above. She will follow-up in the office in 2-3 weeks for reevaluation. The electronic prescription for 30 days supply was sent to [facility] pharmacy. There are no refills on this.
--- NOTE | 2019-09-06 16:51 | P.PN ---
Progress Note - Text Progress Note Date: 09/06/19 OUTPATIENT FOLLOW-UP NOTE TEST(S)/RESULTS: Pelvic ultrasound done on 09/01/2019 at [facility] showed no adnexal abnormality or cul-de-sac fluid. There is a heterogeneous appearance to the fundal endometrial stripe and there is uncertainty as to whether the measurement of 4.1 mm for the endometrial thickness is accurate. A short interval follow-up pelvic ultrasound in 4-6 weeks is recommended. METHOD OF NOTIFICATION: Patient was notified by phone. PATIENT COMMENTS: The patient denies any postmenopausal bleeding. She states her mother had uterine fibroids. DIAGNOSIS: Pelvic ultrasound does not show any definite cause for her intermittent pelvic pains. There is a fundal heterogeneous appearance to the endometrial stripe without postmenopausal bleeding. DISCUSSION: I will order a follow-up pelvic ultrasound as recommended by the radiologist. This may represent a uterine fibroid. I am unable to view the ultrasound images since it was not done at [facility]. She states she may want to have a follow-up done at [facility]. If this is the case I have asked her to request the ultrasound images be placed on a disc and she should bring that disc to her pelvic ultrasound appointment at [facility]. It would also be acceptable for her to do the follow-up at [facility]. The order slip for the pelvic ultrasound to be done during the end of September will be mailed to the patient. PLAN: As above.
== END | disposition home or self-care (01) ==
LOC: WWCWWP 10:36
PROVIDERS: ATTEND Obstetrics & Gynecology
DX: N95.1 Menopausal and female climacteric states (principal); L68.0 Hirsutism
CPT/HCPCS: 82627; 82670; 83001; 84402; 84403; 84443

== ENCOUNTER → 2019-09-13 | Outpatient (CLI) | payer OTHER ==
[2019-09-13 09:44] VITALS: BP 124/80; PULSE 57; RESP 18; TEMP 98.7
--- NOTE | 2019-09-13 10:32 | P.PN ---
Progress Note - Text Progress Note Date: 09/13/19 Chief Complaint: Follow-up of treatment for menopausal symptoms HPI: This is a 63 year old G 10 P4154 with an LMP of 2013. The patient was seen on 08/23/2019 for worsening menopausal symptoms. Hormone testing was done and was unremarkable. This included testosterone, DHEAS, estradiol, FSH, and TSH. The patient was started on Paxil 10 mg daily. She states she had nausea and vomiting during the first 5 days of taking it and therefore discontinued it because of the side effects. She took the medication in the morning. She also had a pelvic ultrasound which had an ill-defined area in the fundal region of the endometrial stripe. Follow-up in 6 weeks with pelvic ultrasound was recommended. PE: Blood pressure: 124/80, Height: 5 feet 0 inches, Weight: 194 pounds, Temperature: 98.7, Pulse: 57. Pulse oximeter 96%. This is a well developed, well nourished, Black female who is alert and orientedx3, in no acute distress. Pelvic ultrasound from [facility] was reviewed with Dr. Shelton the radiologist. He confirms that there is an ill-defined area near the fundal region of the endometrial stripe. He agrees with repeating the ultrasound after about 6 weeks. Impression: 1. 63-year-old menopausal female with worsening menopausal type symptoms who had nausea and vomiting with Paxil 10 mg daily during the first 5 days of use. 2. Ill-defined area in the fundal region of the endometrial stripe by pelvic ultrasound done at [facility]. Plan: 1. The patient will try a half a tablet of Paxil daily and she was instructed to take it at night. If she tolerates this, she will see how she is doing with her symptoms after 2 weeks. If she continues to tolerate it and the symptoms are improved, she will continue taking a half tablet daily. If she tolerates this and symptoms have not improved, she will increase this back to 10 mg daily to see if she tolerates it. 2. Repeat ultrasound at the end of this month as recommended. If the ill- defined area is still of an uncertain nature, we'll consider MRI of the pelvis to further define this area. Time spent with the patient: 20 minutes
== END | disposition home or self-care (01) ==
LOC: WWCWWP 09:29
PROVIDERS: ATTEND Obstetrics & Gynecology
DX: Z53.9 Procedure and treatment not carried out, unspecified reason (principal)

== ENCOUNTER → 2019-09-23 | Outpatient (CLI) | payer OTHER ==
--- NOTE | 2019-09-23 13:37 | US ---
EXAMINATION TYPE: US kidneys/renal and bladder DATE OF EXAM: 09/23/2019 COMPARISON: CT CLINICAL HISTORY: R10.9 FLANK PAIN. Flank pain, pt states UTI EXAM MEASUREMENTS: Right Kidney: 9.4 x 5.3 x 4.7 cm Left Kidney: 10.0 x 5.4 x 4.8 cm Right Kidney: Appeared wnl Left Kidney: Appeared wnl Bladder: wnl Bilateral Jets seen: Only right jet visualized There is no evidence for hydronephrosis at this point in time. No nephrolithiasis is seen. No billy s are identified. The urinary bladder is anechoic. Bilateral ureteral jets are seen. IMPRESSION: 1. Visualized renal ultrasound is unremarkable.
== END | disposition home or self-care (01) ==
LOC: RADUSWWP 12:57
PROVIDERS: ATTEND Internal Medicine
DX: R10.9 Unspecified abdominal pain (principal); Z88.8 Allergy status to other drugs, medicaments and biological substances; Z91.013 Allergy to seafood; Z88.9 Allergy status to unspecified drugs, medicaments and biological substances
CPT/HCPCS: 76770

== ENCOUNTER → 2019-09-29 | Outpatient (CLI) | payer OTHER ==
--- NOTE | 2019-09-29 10:44 | US ---
EXAMINATION TYPE: US pelvis complete transvag DATE OF EXAM: 09/29/2019 COMPARISON: CT 04/06/2019, MRI 09/03/2018, US 08/23/2015 CLINICAL HISTORY: R93.8 HETEROGENEOUS ENDOMETRIUM BY 08/31 US. Patient had an ultrasound done at [facility] facility where they showed a thickened endometrium TECHNIQUE: . Transabdominal sonographic images of the pelvis were acquired. Transvaginal sonographi c images were medically necessary to better assess the following anatomy: endometrium Date of LMP: Years ago EXAM MEASUREMENTS: Uterus: 6.6 x 2.6 x 3.2 cm Endometrial Stripe: 0.2 cm Right Ovary: 1.9 x 1.3 x 0.9 cm Left Ovary: 2.1 x 1.4 x 1.1 cm 1. Uterus: Anteverted Heterogeneous 2. Endometrium: wnl 3. Right Ovary: wnl 4. Left Ovary: wnl 5. Bilateral Adnexa: wnl 6. Posterior cul-de-sac: wnl IMPRESSION: 1. Endometrium measures only 2 mm on today's exam. No abnormal adnexal mass. Uterine myometrium is so mewhat heterogeneous which is a nonspecific finding. No focal fibroid change seen. Finding can occasi onally be seen with adenomyosis.
--- NOTE | 2019-10-05 12:59 | P.PN ---
Progress Note - Text Progress Note Date: 10/05/19 OUTPATIENT FOLLOW-UP NOTE TEST(S)/RESULTS: Pelvic ultrasound done on 09/29/2019 was done as follow-up after a pelvic ultrasound done at [facility] on 09/01/2019. The recent ultrasound done showed an endometrium thickness measuring 2 mm. There is a somewhat heterogeneous uterine myometrium noted which was felt to be a nonspecific finding. METHOD OF NOTIFICATION: The patient was notified by phone. PATIENT COMMENTS: DIAGNOSIS: Nonspecific heterogeneous city of the myometrium DISCUSSION: I have reviewed the recent pelvic ultrasound. I would like to have Dr. Corley, who read the 09/29/2019 ultrasound, review the 09/01/2019 pelvic ultrasound for comparison. PLAN: I will call the patient back after discussing the ultrasounds with Dr. Corley.
--- NOTE | 2019-10-12 10:50 | P.PN ---
Progress Note - Text Progress Note Date: 10/12/19 OUTPATIENT FOLLOW-UP NOTE TEST(S)/RESULTS: Pelvic ultrasound done on 09/29/2019 was benign with no signs of endometrial thickening and no signs of adnexal mass. METHOD OF NOTIFICATION: The patient was notified by phone. PATIENT COMMENTS: The patient is happy to hear this. DIAGNOSIS: Benign pelvic ultrasound. DISCUSSION: The patient previously had a pelvic ultrasound done at [facility] on 09/01/2019 and this was done for pelvic cramping. Follow-up ultrasound was recommended and this was done on 09/29/2019. I spoke with Dr. Corley, the radiologist who read the 09/29/2019 pelvic ultrasound. He was able to compare the ultrasound images with the previous ultrasound done at [facility] on 09/01/2019. He states that the earlier ultrasound was less clearly defined and could see why follow-up was recommended. The later ultrasound on 09/29/2019 was technically better at viewing the uterus and he feels the findings are benign. No further workup was recommended. She again denies any postmenopausal bleeding. Her abdominal cramping is more likely related to her GI tract will follow up with her PCP if she is having more cramping. PLAN: She will make an annual well woman examination appointment for December of this year and this will be done with her mammogram.
--- NOTE | 2019-10-19 14:01 | P.PN ---
Progress Note - Text Progress Note Date: 10/19/19 OUTPATIENT FOLLOW-UP NOTE TEST(S)/RESULTS: Pelvic ultrasound done on 09/29/2019 was felt to be benign. An addendum was done by Dr. Corley after comparing this ultrasound with the previous ultrasound from [facility]. He suggested a short-term follow-up. METHOD OF NOTIFICATION: The patient was notified by phone. PATIENT COMMENTS: DIAGNOSIS: Pelvic ultrasound with suggestion of short-term follow-up. DISCUSSION: PLAN: I have recommended that we repeat the pelvic ultrasound in 6 months. I have also recommended that she make an appointment to see me in approximately 2 months at the time of her mammogram for her annual gynecologic exam. At that time I will give her a pelvic ultrasound order for the 6 month follow-up.
== END | disposition home or self-care (01) ==
LOC: RADUSWWP 09:41
PROVIDERS: ATTEND Obstetrics & Gynecology
DX: R93.89 Abnormal findings on diagnostic imaging of other specified body structures (principal)
CPT/HCPCS: 76830; 76856

== ENCOUNTER → 2019-11-08 | Outpatient (CLI) | payer OTHER ==
[2019-11-08 11:07] LABS: Basophils # (A) 0.1 k/uL (0-0.2); Basophils % (A) 1 %; Eosinophils # (A) 0.2 k/uL (0-0.7); Eosinophils % (A) 2 %; HCT 39.4 % (34.0-46.0); HGB 12.4 gm/dL (11.4-16.0); Lymphocytes # (A) 2.8 k/uL (1.0-4.8); Lymphocytes % (A) 40 %; MCH 29.6 pg (25.0-35.0); MCHC 31.4 g/dL (31.0-37.0); MCV 94.1 fL (80.0-100.0); Mean Platelet Volume 9.3; Monocytes # (A) 0.4 k/uL (0-1.0); Monocytes % (A) 5 %; Neutrophils # (A) 3.5 k/uL (1.3-7.7); Neutrophils % (A) 50 %; Platelet Count 281 k/uL (150-450); RBC 4.18 m/uL (3.80-5.40); RDW 13.8 % (11.5-15.5)
[2019-11-08 16:54] LABS: ALT 21 U/L (8-44); AST 22 U/L (13-35); African American GFR (CKD) 78.9 (60.0-200.0); Albumin/Globulin Ratio 1.52 (1.60-3.17); Alkaline Phosphatase 51 U/L (41-126); BUN/Creat Ratio 15.56 Ratio (12.00-20.00); C Reactive Protein <0.4 mg/dL (0.0-0.8); Calcium 9.4 mg/dL (8.7-10.3); Chloride 105 mmol/L (96-109); Chol/HDL Ratio 1.93; Cholesterol 168 mg/dL (0-200); Creatine Kinase 136 U/L (26-186); Globulin 2.9 g/dL (1.6-3.3); Glucose 95 mg/dL (70-110); LDL Cholesterol,Calculated 69.8 mg/dL (0.0-131.0); Potassium 4.3 mmol/L (3.5-5.5); Sodium 140 mmol/L (135-145); Total Bilirubin 0.4 mg/dL (0.3-1.2); Total Protein 7.3 g/dL (6.2-8.2); Uric Acid 6.1 mg/dL (2.9-7.7)
[2019-11-08 17:24] LABS: Erythrocyte Sedimentation Rate 36 mm/Hr (0-30)
== END | disposition home or self-care (01) ==
LOC: LABWHC1 10:02
PROVIDERS: ATTEND Internal Medicine
DX: Z00.00 Encounter for general adult medical examination without abnormal findings (principal); J44.9 Chronic obstructive pulmonary disease, unspecified; D64.9 Anemia, unspecified; I10 Essential (primary) hypertension; M10.9 Gout, unspecified; E78.5 Hyperlipidemia, unspecified; E55.9 Vitamin D deficiency, unspecified
CPT/HCPCS: 36415; 80053; 80061; 82306; 82550; 84443; 84550; 85025; 85652; 86140

== ENCOUNTER → 2019-12-21 | Outpatient (CLI) | payer OTHER ==
[2019-12-21 09:30] VITALS: BP 133/83; PULSE 61; RESP 20; TEMP 98.1
--- NOTE | 2019-12-21 10:33 | P.HPOB ---
History of Present Illness H&P Date: 12/21/19 Chief Complaint: The patient is here for her routine gynecologic exam and ma mmogram. This is a 64-year-old G 10 P4154 with an LMP of 2013. The patient denies any postmenopausal bleeding. She was seen approximately 4 months ago regarding hot flashes and no was started on Paxil to see if this would help. She states it did not help and discontinued it within 1 month. She is complaining of some urinary tract infections during the past year and these have been fairly frequ ent. She does not believe they are associated with sexual activity since she is infrequently sexually active. She was recently tested for a UTI and she states the urine tested negative at her PCPs office. She had a pelvic ultrasound done at [facility] because of pelvic pains in August of this year and there was no definite explanation for her pains. There was some question about the endometrial thickness and it appeared heterogeneous. Repeat ultrasound was done at [facility] in September of this year and was unremarkable, however the radiologist recommended follow-up in 6 months. The patient denies any postmenopausal bleeding. Review of Systems The patient has gained 10 pounds over the last year. She recently has been on an oral steroid for respiratory problems. She just took the last pill and the steroids will be discontinued. Respiratory: Some COPD symptoms. She denies cardiac problems. GI: Occasional constipation. Past Medical History Past Medical History: COPD, CVA/TIA, GERD/Reflux, Hypertension, Myocardial Infarction ([place]), Pneumonia, Rheumatoid Arthritis ([place]) Additional Past Medical History / Comment(s): DDD, ARTHRITIS WITH KNEE PAIN, USES CANE, carotid aneurysm followed conservatively. 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 Past Anesthesia/Blood Transfusion Reactions: No Reported Reaction Past Psychological History: Anxiety, Depression Smoking Status: Former smoker Past Alcohol Use History: Occasional (2 per week) Additional Past Alcohol Use History / Comment(s): Quit smoking approximately 2014, SMOKED SOCIALLY OFF AND ON SINCE TEENAGER. Past Drug Use History: Cocaine Additional Drug Use History / Comment(s): cocaine use in 20-30s, not currently. TRIED CBD OIL Additional History: She has been since 1992 and has had some marital problems in the past. She is infrequently sexually active. She is considered disabled. - Past Family History Mother Family Medical History: Hypertension, Myocardial Infarction ([place]) Additional Family Medical History / Comment(s): Uterine fibroids. Brother(s) Family Medical History: Diabetes Mellitus Father Family Medical History: Cancer Additional Family Medical History / Comment(s): Colon cancer. Medications and Allergies Home Medications Medication Instructions Recorded Confirmed Type HYDROcodone/APAP 10-325MG [[place] 1 tab PO BID PRN 02/16/14 12/21/19 History 10] Montelukast [Singulair] 10 mg PO DAILY 02/16/14 12/21/19 History amLODIPine [Norvasc] 10 mg PO HS 04/06/19 12/21/19 History lisinopriL [Zestril] 5 mg PO DAILY 04/06/19 12/21/19 History Albuterol Inhaler [Ventolin Hfa 1 puff INHALATION DIRECTED 07/27/19 12/21/19 History Inhaler] B-12 (Unknown Dose) 1 tab PO DAILY 07/27/19 12/21/19 History Cannabidiol (Cbd) [Epidiolex] 1 dose PO ONCE 07/27/19 12/21/19 History LORazepam [Ativan] 0.5 mg PO DAILY PRN 07/27/19 12/21/19 History Multivitamins, Thera [Multivitamin 1 tab PO DAILY 07/27/19 12/21/19 History (formulary)] Omeprazole 20 mg PO DIRECTED PRN 07/27/19 12/21/19 History Aspirin/Acetaminophen/Caffeine 1 each PO BID PRN 08/23/19 12/21/19 History [Excedrin Migraine Caplet] Atorvastatin [Lipitor] 20 mg PO HS 08/23/19 12/21/19 History Diclofenac Sodium 50 mg PO BID 08/23/19 12/21/19 History Fluticasone Nasal [place] [Flonase 1 spray EA NOSTRIL DAILY 08/23/19 12/21/19 History Nasal [place]] Hydrochlorothiazide 12.5 mg PO DAILY 08/23/19 12/21/19 History [hydroCHLOROthiazide] Ibuprofen 800 mg PO Q8H 08/23/19 12/21/19 History Linaclotide [Linzess] 290 mcg PO DAILY 08/23/19 12/21/19 History Estradiol Cream [Estrace Cream 1 gm VAGINAL DIRECTED #1 tube 12/21/19 Rx 0.01%] Allergies Allergy/AdvReac Type Severity Reaction Status Date / Time SWAI FISH Allergy Severe Anaphylaxis Uncoded 12/21/19 09:14 Exam Vital Signs Temp Pulse Resp BP Pulse Ox 12/21/19 09:14 98.1 F 61 20 133/83 98 Intake and Output 12/20/19 12/21/19 12/21/19 22:59 06:59 14:59 Other: Weight 90.718 kg Height 4 feet 11-1/2 inches, weight 200 pounds, BMI 39.7. This is a well-developed well-nourished heavyset black female who is alert and oriented times 3 in no acute distress. HEENT: Within normal limits. NECK: Supple without mass or thyromegaly. CHEST AND LUNGS: Clear to auscultation. HEART: Regular rate and rhythm. BREASTS: Are without mass or discharge. AXILLARY EXAM: Negative for adenopathy. BACK: Negative for CVA tenderness. ABDOMEN: Soft, obese, nontender, without palpable masses. PELVIC EXAM: Normal external genitalia with mild to moderate atrophy. Cervix and vagina appear normal with mild to moderate atrophy. There is no unusual discharge. There is no evidence of prolapse. The uterus is midposition, nongravid size and nontender. There are no palpable adnexal masses or tenderness. RECTAL EXAM: Rectovaginal exam is negative for mass or tenderness and is negative for occult blood. EXTREMITIES: Nontender. IMPRESSION: 1. 64-year-old menopausal female with normal gynecologic exam. 2. Frequent UTIs during the past year. 3. Previous pelvic ultrasound done 4 months ago which showed a heterogeneous type endometrium. A repeat ultrasound done at [facility] seem to be within normal limits, but follow-up ultrasound was recommended because of the prior questionable endometrium. PLAN: 1. Pap smear was deferred since she had a normal one on 12/01/2018. 2. Self breast awareness was discussed with the patient. 3. Screening mammogram will be done today. 4. Follow-up pelvic ultrasound in March 2020 was recommended. The order slip was given to the patient for this. 5. Trial of estradiol vaginal cream 1 g into the vagina 2 times weekly. She can also use a small amount of the cream at the urinary opening to see if this helps with her frequent UTIs. The electronic prescription was sent to [facility]'s pharmacy. 6. Weight control was discussed with the patient. After discontinuing the oral steroids, I feel that she may be a little too loose some of the weight that she has gained. I have stressed the importance of good nutrition and regular exercise. 7. She was advised to return in one year for her annual well woman exam and as needed.
--- NOTE | 2019-12-23 13:50 | MM ---
Reason for exam: screening (asymptomatic). Last mammogram was performed 1 year and 2 months ago. History: Patient is postmenopausal. Family history of breast cancer in maternal aunt. MG discontinued stereo core RT of the right breast, September 23, 2016. Physical Findings: A clinical breast exam by your physician is recommended on an annual basis and results should be correlated with mammographic findings. MG Screening Mammo w CAD Bilateral CC and MLO view(s) were taken. Prior study comparison: October 11, 2018, bilateral MG screening mammo w CAD. August 28, 2017, bilateral MG diagnostic mammo w CAD PENG. The breast tissue is heterogeneously dense. This may lower the sensitivity of mammography. No significant changes when compared with prior studies. ASSESSMENT: Benign, BI-RAD 2 RECOMMENDATION: Routine screening mammogram of both breasts in 1 year.
== END | disposition home or self-care (01) ==
LOC: WWCWWP 09:06
PROVIDERS: ATTEND Obstetrics & Gynecology
DX: Z12.31 Encounter for screening mammogram for malignant neoplasm of breast (principal)
CPT/HCPCS: 77067

== ENCOUNTER → 2020-03-12 | Outpatient (CLI) | payer OTHER ==
--- NOTE | 2020-03-12 10:14 | US ---
EXAMINATION TYPE: US transvaginal DATE OF EXAM: 03/12/2020 COMPARISON: 09/29/2019 CLINICAL HISTORY: 64-year-old female R93.8 abnormal endometrium by previous outside ultrasound. Pain TECHNIQUE: Transabdominal and Transvaginal (TV). FINDINGS: Limited initial transabdominal scanning due to suboptimal bladder distention and patient body habitus . EXAM MEASUREMENTS: Uterus: 5.4 x 3.2 x 4.3 cm Endometrial Stripe: 4.7 mm Right Ovary: 2.5 x .8 x 1.3 cm 1. Uterus: Mobile, anteverted initially and then retroverted on subsequent images . Otherwise, within normal limits. 2. Endometrium: Upper limits of normal for a postmenopausal female. Follow-up is performed as previo us measurement on 09/29/2019 was 2.3 mm. 3. Right Ovary: wnl 4. Left Ovary: Obscured by overlying bowel gas 5. Bilateral Adnexa: wnl 6. Posterior cul-de-sac: wnl IMPRESSION: 1. Endometrial stripe measuring at 4.7 mm which is upper limits of normal in a postmenopausal female. Measured at 2.3 mm on 09/29/2019. Continued follow-up can be performed. 2. Left ovary obscured and not assessed.
--- NOTE | 2020-03-13 09:13 | P.PN ---
Progress Note - Text Progress Note Date: 03/13/20 OUTPATIENT FOLLOW-UP NOTE TEST(S)/RESULTS: Pelvic ultrasound done on 03/12/2020 showed an endometrial thickness measuring 4.7 mm which was considered to be at the upper limits of normal. This is slightly thicker than her 09/29/2019 ultrasound. The ultrasound was otherwise unremarkable. METHOD OF NOTIFICATION: The patient was notified by phone. PATIENT COMMENTS: The patient denies any postmenopausal bleeding. DIAGNOSIS: History of previous endometrial abnormality by ultrasound. Slight change in endometrial thickness from the 09/29/2019 ultrasound. DISCUSSION: She has been using estradiol vaginal cream and would like to continue using this. This may slightly affect the endometrial thickness. PLAN: Repeat pelvic ultrasound at the time of her annual well woman examination in December of this year. The order slip will be mailed to the patient. She will call if any problems.
== END | disposition home or self-care (01) ==
LOC: RADUSWWP 09:05
PROVIDERS: ATTEND Obstetrics & Gynecology
DX: R93.89 Abnormal findings on diagnostic imaging of other specified body structures (principal)
CPT/HCPCS: 76830

== ENCOUNTER → 2020-08-01 | Outpatient (CLI) | payer OTHER ==
[2020-08-01 10:53] VITALS: BP 134/85; PULSE 61; RESP 20; TEMP 98.3
--- NOTE | 2020-08-01 12:00 | P.PN ---
Progress Note - Text Progress Note Date: 08/01/20 Chief Complaint: Left breast pain for one week. HPI: This is a 64-year-old G 10 P5054 with an LMP of 2014. The patient states that she has noticed significant left breast pain for the past 1 week. She notices it more laying down on her back and less when she leans forward. The pain is sharp and achy and goes from the area of the nipple down to the ribs. Initially the pains were intermittent but now they seem to be fairly constant during the past 3 days. She has been doing upper body and arm exercises with bands and light weights which she did for physical therapy and is now doing them at home. She denies any nipple discharge or blood from the nipple. She was previously prescribed some estrogen vaginal cream for frequent urinary tract infections, but she has not been using this for many weeks. ROS: She denies fever. She denies respiratory, cardiac, or GI problems. PE: Blood pressure: 134/85, Height: 4 feet 11-1/2 inches, Weight: 188 pounds, Temperature: 98.3, Pulse: 61. Pulse oximeter 99%. This is a well developed, well nourished, black female who is alert and oriented x3, in no acute distress. Breast exam: The breasts appear normal and symmetric. There is no unusual puckering or dimpling. The nipples are not inverted. There are no palpable masses bilaterally. There is moderate point tenderness at the 6 o'clock position beneath the areola. There is a natural ridge at this area beneath the areola and this is also the same in the right breast. There is no right breast tenderness. Axillary exam: Is negative for adenopathy and is nontender. Impression: 1. 64-year-old menopausal female with acute left breast mastodynia at the 6 o 'clock position directly beneath the areola. Differential diagnosis will include left breast cyst, pectoral muscle soreness, or supportive breast tissue strain. Other breast neoplasm is considered but unlikely. 2. The patient has also been followed for a slightly abnormal endometrium by ultrasound which was last done in March 2020. Plan: 1. Left breast ultrasound will be performed today. A marker was placed at the area of her point tenderness. If no suspicious findings, conservative management will include avoiding touching or pushing on the breast, avoid the upper body exercises for at least 1 week and she can use Tylenol as directed. The patient states she was instructed to avoid NSAID type medications. 2. The patient will return in 5 months for her annual well woman examination, mammogram, and pelvic ultrasound. 3. She will also return as needed. Time spent with the patient: 20 minutes
--- NOTE | 2020-08-01 13:27 | USB ---
Reason for exam: clinical finding. History: Patient is postmenopausal. Family history of breast cancer in maternal aunt. MG discontinued stereo core RT of the right breast, September 23, 2016. Physical Findings: Nurse did not find any significant physical abnormalities on exam. US Breast LT Left complete breast ultrasound includes all four quadrants, the retroareolar region and axilla. Finding demonstrates a 0.6 x 0.3 x 0.6cm cystic lesion at 6 o'clock retroareolar, benign appearing and a 1.4cm lymph node at the axilla. These results were verbally communicated with the patient and result sheet given to the patient on 08/01/20. ASSESSMENT: Benign, BI-RAD 2 RECOMMENDATION: Return to routine screening mammogram schedule for both breasts. Back on schedule for December 2020. Manage on a clinical basis with regard to diffuse breast pain.
== END ==
LOC: WWCWWP 10:37
PROVIDERS: ATTEND Obstetrics & Gynecology
DX: N64.4 Mastodynia (principal); Z91.013 Allergy to seafood; Z87.891 Personal history of nicotine dependence

== ENCOUNTER → 2021-02-26 | Outpatient (CLI) | payer OTHER ==
[2021-02-26 10:54] VITALS: BP 111/73; PULSE 70; RESP 18; TEMP 98.9
--- NOTE | 2021-02-26 11:59 | P.HPOB ---
History of Present Illness H&P Date: 02/26/21 Chief Complaint: The patient is here for her routine gynecologic exam and ma mmogram. This is a 64-year-old G 10 P4154 with an LMP of 2013. The patient denies any postmenopausal bleeding. She has been experiencing urinary frequency. She was also having dysuria so she used an [id number] antibacterial medication which helped with the dysuria 3 weeks ago, but she still notices some urinary frequency. She also had a recent episode where she voided in her bed during her sleep. She believes she was dreaming about urinating at this time. She briefly used estrogen vaginal cream which we were using because of frequent UTIs, but she discontinued it because of concerns regarding estrogen and cancer. Review of Systems She has lost about 15 pounds over the past year. Respiratory: Occasional pains when she inhales. She denies cardiac problems. GI: Occasional constipation. : See the HPI. Past Medical History Past Medical History: COPD, CVA/TIA, GERD/Reflux, Hypertension, Myocardial Infarction ([place]), Pneumonia, Rheumatoid Arthritis ([place]) Additional Past Medical History / Comment(s): DDD, ARTHRITIS WITH KNEE PAIN, USES CANE, carotid aneurysm followed conservatively. 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 Past Anesthesia/Blood Transfusion Reactions: No Reported Reaction Past Psychological History: Anxiety, Depression Smoking Status: Former smoker Past Alcohol Use History: Occasional (2 per week) Additional Past Alcohol Use History / Comment(s): Quit smoking approximately 2014, SMOKED SOCIALLY OFF AND ON SINCE TEENAGER. Past Drug Use History: Cocaine Additional Drug Use History / Comment(s): cocaine use in 20-30s, not currently. TRIED CBD OIL - Past Family History Mother Family Medical History: Hypertension, Myocardial Infarction ([place]) Additional Family Medical History / Comment(s): Uterine fibroids. Brother(s) Family Medical History: Diabetes Mellitus Father Family Medical History: Cancer Additional Family Medical History / Comment(s): Colon cancer. Medications and Allergies Home Medications Medication Instructions Recorded Confirmed Type HYDROcodone/APAP 10-325MG [[place] 1 tab PO BID PRN 02/16/14 02/26/21 History 10] Montelukast [Singulair] 10 mg PO DAILY 02/16/14 02/26/21 History amLODIPine [Norvasc] 10 mg PO HS 04/06/19 02/26/21 History lisinopriL [Zestril] 5 mg PO DAILY 04/06/19 02/26/21 History Albuterol Inhaler [Ventolin Hfa 1 puff INHALATION DIRECTED 07/27/19 02/26/21 History Inhaler] B-12 (Unknown Dose) 1 tab PO DAILY 07/27/19 02/26/21 History Cannabidiol (Cbd) [Epidiolex] 1 dose PO ONCE 07/27/19 02/26/21 History Multivitamins, Thera [Multivitamin 1 tab PO DAILY 07/27/19 02/26/21 History (formulary)] Omeprazole 20 mg PO DIRECTED PRN 07/27/19 02/26/21 History Aspirin/Acetaminophen/Caffeine 1 each PO BID PRN 08/23/19 02/26/21 History [Excedrin Migraine Caplet] Atorvastatin [Lipitor] 20 mg PO HS 08/23/19 02/26/21 History Fluticasone Nasal [place] [Flonase 1 spray EA NOSTRIL DAILY 08/23/19 02/26/21 History Nasal [place]] Ibuprofen 800 mg PO Q8H 08/23/19 02/26/21 History Linaclotide [Linzess] 290 mcg PO DAILY 08/23/19 02/26/21 History Allergies Allergy/AdvReac Type Severity Reaction Status Date / Time [facility] Allergy Severe Anaphylaxis Uncoded 02/26/21 10:40 Exam Vital Signs Temp Pulse Resp BP Pulse Ox 02/26/21 10:42 98.9 F 70 18 111/73 97 Intake and Output 02/25/21 02/26/21 02/26/21 22:59 06:59 14:59 Other: Weight 83.915 kg Height 4 feet 11 inches, weight 185 pounds, BMI 37.4. This is a well-developed well-nourished heavyset black female who is alert and oriented times 3 in no acute distress. HEENT: Within normal limits. NECK: Supple without mass or thyromegaly. CHEST AND LUNGS: Clear to auscultation. HEART: Regular rate and rhythm. BREASTS: Are without mass or discharge. AXILLARY EXAM: Negative for adenopathy. BACK: Negative for CVA tenderness. ABDOMEN: Soft, nontender, without palpable masses. PELVIC EXAM: Normal external genitalia with mild atrophy. Cervix and vagina appear normal with mild atrophy. There is minimal thin devlin discharge in the back of the vagina without odor. There is no evidence of prolapse. The uterus is midposition, nongravid size and nontender. There are no palpable adnexal masses. There is mild right adnexal tenderness. There is no left adnexal tenderness or uterine tenderness. RECTAL EXAM: Rectovaginal exam is negative for mass or tenderness and is negative for occult blood. EXTREMITIES: Nontender. IMPRESSION: 1. 65-year-old menopausal female with minimal vaginal discharge on exam and urinary frequency. 2. Right adnexal tenderness on exam today. 3. History of endometrial abnormality by ultrasound and borderline endometrial thickness on past ultrasounds without postmenopausal bleeding. 4. History of STDs in the past. PLAN: 1. Pap smear cotest was performed. If these are both negative, we will consider discontinuing Pap smears. 2. Self breast awareness was discussed with the patient. We have also discussed symptoms associated with inflammatory breast cancer. 3. Screening mammogram will be done today. 4. Affirm vaginitis panel was obtained from the vagina. 5. GC and Chlamydia testing was obtained from the cervix. 6. Urine will be obtained for UA and C&S. 7. Pelvic ultrasound is recommended because of the history of endometrial irregularity and borderline endometrial thickness as well as the right pelvic tenderness on exam today. The order slip was given to the patient for this. 8. She has completed her Covid vaccination series and has received her booster shot. 9. She was advised to return in one year for her annual well woman exam and as needed.
[2021-02-26 20:19] LABS: Amorphous Sediment,Urine Rare /hpf; Appearance,Urine Cloudy (Clear); Bacteria,Urine Rare /hpf; Bilirubin,Urine Negative (Negative); Blood,Urine Moderate (Negative); Color,Urine Yellow; Glucose,Urine (UA) Negative (Negative); Hyaline Casts,Urine 4 /lpf (0-2); Ketones,Urine Negative (Negative); Leukocyte Esterase,Urine Negative (Negative); Mucus,Urine Many /hpf; Nitrite,Urine Negative (Negative); PH, Urine 5.5 (5.0-8.0); Protein,Urine Trace (Negative); RBC,Urine 5 /hpf (0-5); Specific Gravity,Urine 1.026 (1.001-1.035); Squamous Epithelial Cell,Urine 2 /hpf (0-4); Urobilinogen,Urine <2.0 mg/dL (<2.0); WBC,Urine 3 /hpf (0-5)
[2021-02-27 11:32] LABS: Gardnerella Negative (Negative); Source Vagina; Trichomonas Negative (Negative)
[2021-02-27 13:25] LABS: C. trachomatis,PCR Negative (Neg,Equiv); Chlamydia trachomatis Source Urine; N. gonorrhoeae,PCR Negative (Neg,Equiv); Neisseria Source Urine
== END ==
LOC: WWCWWP 10:10
PROVIDERS: ATTEND Obstetrics & Gynecology
DX: Z12.31 Encounter for screening mammogram for malignant neoplasm of breast (principal); N89.8 Other specified noninflammatory disorders of vagina; R35.0 Frequency of micturition; J44.9 Chronic obstructive pulmonary disease, unspecified; K21.9 Gastro-esophageal reflux disease without esophagitis; I10 Essential (primary) hypertension; I25.2 Old myocardial infarction; M06.9 Rheumatoid arthritis, unspecified; M17.10 Unilateral primary osteoarthritis, unspecified knee; F41.9 Anxiety disorder, unspecified; F32.A Depression, unspecified; Z87.891 Personal history of nicotine dependence; Z86.73 Personal history of transient ischemic attack (TIA), and cerebral infarction without residual deficits; Z86.19 Personal history of other infectious and parasitic diseases; Z79.82 Long term (current) use of aspirin; Z79.51 Long term (current) use of inhaled steroids; Z79.899 Other long term (current) drug therapy; Z91.013 Allergy to seafood
CPT/HCPCS: 77067; 81001; 87086; 87480; 87491; 87510; 87591; 87660

== ENCOUNTER → 2021-03-13 | Outpatient (CLI) | payer OTHER ==
--- NOTE | 2021-03-13 10:35 | USB ---
Reason for exam: additional evaluation requested from abnormal screening. History: Patient is postmenopausal. Family history of breast cancer in maternal aunt. MG discontinued stereo core RT of the right breast, September 23, 2016. Physical Findings: Nurse did not find any significant physical abnormalities on exam. US Breast Workup Limited LT Left limited breast ultrasound including focal area of concern, retroareolar and axilla demonstrates a 7 x 3 x 7mm oval, cystic, benign lesion at 1 o'clock area of pain, a 5 x 3 x 6mm lobular, mixed lesion at 2 o'clock, probably debris filled cyst and two 10mm oval lymph nodes at the axillary tail, prominent but nonenlarged and stable. Scanned 12-3 o'clock. These results were verbally communicated with the patient and result sheet given to the patient on 03/13/21. ASSESSMENT: Benign, BI-RAD 2 RECOMMENDATION: Return to routine screening mammogram schedule for both breasts. Manage on a clinical basis with regard to palpable, painful area.
== END | disposition home or self-care (01) ==
LOC: RADUSWWP 08:55
PROVIDERS: ATTEND Obstetrics & Gynecology
DX: R92.8 Other abnormal and inconclusive findings on diagnostic imaging of breast (principal); Z78.0 Asymptomatic menopausal state; Z80.3 Family history of malignant neoplasm of breast

== ENCOUNTER → 2021-03-29 | Outpatient (CLI) | payer OTHER ==
--- NOTE | 2021-03-29 11:47 | US ---
EXAMINATION TYPE: US pelvis complete transvag DATE OF EXAM: 03/29/2021 COMPARISON: Prior ultrasound March 12, 2020 CLINICAL HISTORY: R93.8 Abnormal findings on diagnostic imaging. RLQ pain during physical exam by matthew latham, no pain now, LMP 6yrs ago TECHNIQUE: TA/TV. Transabdominal sonographic images of the pelvis were acquired. Transvaginal sono graphic images were medically necessary to better assess the following anatomy: uterus and ovaries EXAM MEASUREMENTS: Uterus: 6.2 x 2.9 x 3.0 cm Endometrial Stripe: 0.3 cm Right Ovary: not seen Left Ovary: not seen 1. Uterus: Anteverted wnl 2. Endometrium: wnl 3. Right Ovary: not seen due to atrophy and or obscured by peristalsing bowel 4. Left Ovary: not seen due to atrophy and or obscured by peristalsing bowel 5. Bilateral Adnexa: wnl 6. Posterior cul-de-sac: wnl Anteverted uterus. Endometrial stripe measures within normal limits for postmenopausal female. No rubi e fluid. No suspicious adnexal masses. Neither ovary clearly seen. IMPRESSION: No suspicious new findings seen to account for patient's symptoms. No suspicious adnexal mass is noted.
== END | disposition home or self-care (01) ==
LOC: RADUSWWP 09:10
PROVIDERS: ATTEND Obstetrics & Gynecology
DX: R10.31 Right lower quadrant pain (principal); R93.89 Abnormal findings on diagnostic imaging of other specified body structures
CPT/HCPCS: 76830; 76856

== ENCOUNTER → 2022-02-03 | Outpatient (CLI) | payer OTHER ==
--- NOTE | 2022-02-03 14:01 | US ---
EXAMINATION TYPE: US venous doppler duplex LE RT DATE OF EXAM: 02/03/2022 1:49 PM COMPARISON: NONE CLINICAL HISTORY: RLE M79.661 PAIN IN RIGHT LOWER LEG. rt medial distal thigh pain, no prev dvt SIDE PERFORMED: right TECHNIQUE: The lower extremity deep venous system is examined utilizing real time linear array sonog davina with graded compression, doppler sonography and color-flow sonography. VESSELS IMAGED: Common Femoral Vein Deep Femoral Vein Greater Saphenous Vein * Femoral Vein Popliteal Vein Small Saphenous Vein * Proximal Calf Veins (* superficial vessels) Right Leg: neg for RLE dvt Results called to [place] in the office at the time of the exam. Grayscale, color doppler, spectral doppler imaging performed of the deep veins of the right lower ext remity. There is normal flow, compressibility, vascular waveforms. IMPRESSION: No ultrasound evidence for acute DVT in the right lower extremity.
--- NOTE | 2022-02-03 14:23 | XR ---
EXAMINATION TYPE: XR Hip Complete RT DATE OF EXAM: 02/03/2022 CLINICAL HISTORY: Right hip pain. TECHNIQUE: AP and frogleg views of the right hip are obtained. COMPARISON: CT abdomen and pelvis April 06, 2019. FINDINGS: There is no acute fracture/dislocation evident in the right hip. [id number] axial kayla int space loss right hip redemonstrated. Mild acetabular spurring. The overlying soft tissue appears unremarkable. IMPRESSION: As above.
== END | disposition home or self-care (01) ==
LOC: RADUSWWP 13:03
PROVIDERS: ATTEND Internal Medicine
DX: M79.661 Pain in right lower leg (principal); M25.551 Pain in right hip
CPT/HCPCS: 73502

== ENCOUNTER → 2022-06-11 | Outpatient (CLI) | payer MEDICARE, OTHER ==
--- NOTE | 2022-06-11 15:45 | US ---
EXAMINATION TYPE: US pelvic complete DATE OF EXAM: 06/11/2022 COMPARISON: US March 29, 2021 CLINICAL HISTORY: R10.32 LLQ PAIN, R10.2 PELVIC PAIN. Pt states cramping LLQ TECHNIQUE: Transabdominal (TA). Transabdominal sonographic images of the pelvis were acquired. Date of LMP: Pt states age 58 EXAM MEASUREMENTS: Uterus: 6.1 x 2.7 x 3.0 cm Endometrial Stripe: 0.3 cm Right Ovary: 1.8 x 1.3 x 1.1 cm Left Ovary: 1.5 x 0.9 x 0.8 cm 1. Uterus: Anteverted Heterogeneous 2. Endometrium: wnl 3. Right Ovary: wnl 4. Left Ovary: wnl 5. Bilateral Adnexa: wnl 6. Posterior cul-de-sac: wnl Anteverted uterus. No free fluid. Symmetric small size ovaries correlate with patient's age. IMPRESSION: No suspicious findings seen.
--- NOTE | 2022-06-12 17:10 | BD ---
EXAMINATION TYPE: Axial Bone Density DATE OF EXAM: 06/11/2022 CLINICAL HISTORY: 66 years old Female. ICD-10 CODE: Z78.0 ASYMPTOMATIC MENOPAUSAL Height: 58.5 in Weight: 177 lbs FRAX RISK QUESTIONS: History of Fracture in Adulthood: lt forearm fx age 30 Secondary Osteoporosis: Rheumatoid Arthritis: yes RISK FACTORS HISTORY OF: History of Wrist Fracture: lt forearm age 30 Family History of Osteoporosis: yes mother Active: yes Diet low in dairy products/other sources of calcium: yes Postmenopausal woman: age 58 MEDICATIONS: Additional Medications: vit d, multi vit, blood pressure, cholesterol, aspirin, reflux meds, pain med s EXAM MEASUREMENTS: Bone mineral densitometry was performed using the [employer] System. Bone mineral density as measured about the Lumbar spine is: ----- L1-L4(G/cm2): 0.949 T Score Values are as follows: ----- L1: -2.8 ----- L2: -2.3 ----- L3: -1.2 ----- L4: -1.5 ----- L1-L4: -1.9 Z Score Values are as follows: ----- L1: -2.4 ----- L2: -2.0 ----- L3: -0.8 ----- L4: -1.1 ----- L1-L4: -1.5 Bone mineral density baseline Bone mineral density about the R hip (g/cm2): 0.961 Bone mineral density about the L hip (g/cm2): 0.901 T Score values are as follows: -----R Neck: -1.6 -----L Neck: -2.4 -----R Total: -0.4 -----L Total: -0.8 Z Score values are as follows: -----R Neck: -1.4 -----L Neck: -2.2 -----R Total: -0.5 -----L Total: -1.0 Bone mineral density baseline FRAX%s: The graph provided illustrates a 11.5% chance for a major osteoporotic fx and a 2.4% chance f or the hips probability for fx in 10 years time. IMPRESSION: Osteopenia (T Score between -2.5 and -1). There is slightly increased risk of fracture and the patient may be considered for treatment. Re-Screen 2-5 years. NOTE: T-SCORE=SD OF THE YOUNG ADULT MEAN.
== END | disposition home or self-care (01) ==
LOC: RADUSWWP 14:55
PROVIDERS: ATTEND Obstetrics & Gynecology
DX: R10.32 Left lower quadrant pain (principal); R10.2 Pelvic and perineal pain; Z78.0 Asymptomatic menopausal state
CPT/HCPCS: 76856; 77080

== ENCOUNTER → 2023-04-14 | Outpatient (CLI) | payer MEDICARE, OTHER ==
[2023-04-14 09:29] LABS: INR 0.9 (<1.2); Prothrombin Time 10.3 sec (10.0-12.5)
[2023-04-14 15:28] LABS: HCT 39.5 % (37.2-46.3); HGB 12.3 g/dL (12.0-15.0); MCH 29.4 pg (27.0-32.0); MCHC 31.1 g/dL (32.0-37.0); MCV 94.5 FL (80.0-97.0); Mean Platelet Volume 12.5 FL (9.5-12.2); NRBC Per 100 WBC 0 X 10*3/uL (0.00-0.01); Platelet Count 279 X 10*3/uL (140-440); RBC 4.18 X 10*6/uL (4.10-5.20); RDW 13.9 % (11.5-14.5); WBC 6.98 X 10*3/uL (4.50-10.00)
[2023-04-14 15:59] LABS: ALT 18 U/L (8-44); AST 15 U/L (13-35); Albumin 4.3 g/dL (3.8-4.9); Albumin/Globulin Ratio 1.65 Ratio (1.60-3.17); Alkaline Phosphatase 49 U/L (41-126); BUN/Creat Ratio 17.71 Ratio (12.00-20.00); Blood Urea Nitrogen 12.4 mg/dL (9.0-27.0); Calcium 9.4 mg/dL (8.7-10.3); Carbon Dioxide 27.7 mmol/L (21.6-31.8); Chloride 104 mmol/L (96-109); Globulin 2.6 g/dL (1.6-3.3); Glucose 95 mg/dL (70-110); Potassium 4.3 mmol/L (3.5-5.5); Sodium 142 mmol/L (135-145); Total Bilirubin 0.2 mg/dL (0.3-1.2); Total Protein 6.9 g/dL (6.2-8.2)
== END | disposition home or self-care (01) ==
LOC: LABPAT 08:39
PROVIDERS: ATTEND Orthopaedic Surgery
DX: Z01.818 Encounter for other preprocedural examination (principal); M17.11 Unilateral primary osteoarthritis, right knee; R94.31 Abnormal electrocardiogram [ECG] [EKG]; Z22.322 Carrier or suspected carrier of Methicillin resistant Staphylococcus aureus
CPT/HCPCS: 36415; 80053; 85027; 85610; 85730; 87070; 93005

== ENCOUNTER → 2023-05-26 | Outpatient (CLI) | payer MEDICARE, OTHER ==
[2023-05-26 11:05] LABS: INR 0.9 (<1.2); Partial Thromboplastin Time 24.1 sec (22.0-30.0); Prothrombin Time 10.2 sec (10.0-12.5)
[2023-05-26 17:30] LABS: HGB 11.9 g/dL (12.0-15.0); MCH 29.2 pg (27.0-32.0); MCHC 31.3 g/dL (32.0-37.0); MCV 93.1 FL (80.0-97.0); Mean Platelet Volume 12.6 FL (9.5-12.2); NRBC Per 100 WBC 0 X 10*3/uL (0.00-0.01); Platelet Count 213 X 10*3/uL (140-440); RBC 4.08 X 10*6/uL (4.10-5.20); RDW 14.7 % (11.5-14.5); WBC 7.04 X 10*3/uL (4.50-10.00)
[2023-05-26 17:34] LABS: ALT 20 U/L (8-44); AST 18 U/L (13-35); Albumin 4.3 g/dL (3.8-4.9); Albumin/Globulin Ratio 1.79 Ratio (1.60-3.17); Alkaline Phosphatase 49 U/L (41-126); BUN/Creat Ratio 16.88 Ratio (12.00-20.00); Blood Urea Nitrogen 13.5 mg/dL (9.0-27.0); Calcium 9.6 mg/dL (8.7-10.3); Carbon Dioxide 26.6 mmol/L (21.6-31.8); Chloride 104 mmol/L (96-109); Globulin 2.4 g/dL (1.6-3.3); Glucose 79 mg/dL (70-110); Potassium 4.1 mmol/L (3.5-5.5); Sodium 141 mmol/L (135-145); Total Bilirubin 0.3 mg/dL (0.3-1.2); Total Protein 6.7 g/dL (6.2-8.2)
== END ==
LOC: LABPAT 09:56
PROVIDERS: ATTEND Orthopaedic Surgery
DX: Z01.812 Encounter for preprocedural laboratory examination (principal); Z22.322 Carrier or suspected carrier of Methicillin resistant Staphylococcus aureus; M17.11 Unilateral primary osteoarthritis, right knee
CPT/HCPCS: 36415; 80053; 85027; 85610; 85730; 87070

== ENCOUNTER 2023-06-23 05:36 | Observation (INO) | payer MEDICARE, OTHER ==
[2023-05-06 10:30] VITALS: BMI 36.5
[~2023-06-23 05:36] MED LIST changes: -LACTATED RINGERS 1,000 ML IV SCH; -LIDOCAINE 1% (10MG/ML) FOR IV START INTRADERMA PRN; +TRANEXAMIC 1,000 MG/100ML-NACL 1,000 MG in SALINE 1 100ML.BAG IVPB PRN
[2023-06-23] MEDS ORDERED: LIDOCAINE 1% (10MG/ML) FOR IV START INTRADERMA PRN (05:53)
[2023-06-23] MEDS: LACTATED RINGERS 1,000 ML IV SCH (05:57)
[2023-06-23] MEDS: MELOXICAM 7.5 MG TAB PO PRN (06:09)
[2023-06-23] MEDS: ACETAMINOPHEN TAB 500 MG TAB PO PRN (06:09)
[2023-06-23] MEDS: GABAPENTIN 300 MG CAP PO PRN (06:09)
[2023-06-23] MEDS: ONDANSETRON 4 MG/2 ML VIAL IVP ONE (06:38)
[2023-06-23] MEDS: DEXAMETHASONE SOD PHOSPHATE 4 MG/ML 1 ML VIAL IV ONE (06:38)
[2023-06-23] MEDS: MIDAZOLAM 2 MG/2 ML VIAL IVP ONE (06:40)
[2023-06-23] MEDS ORDERED: MIDAZOLAM 2 MG/2 ML VIAL IV PRN (07:00)
[2023-06-23] MEDS ORDERED: ROPIVACAINE 5 MG/ML 30 ML VIAL ONE (07:07)
[2023-06-23] MEDS ORDERED: SUCCINYLCHOLINE CHLORIDE 200 MG/10 ML VIAL IV ONE (07:07)
[2023-06-23] MEDS ORDERED: PROPOFOL 10 MG/ML 20 ML VIAL IV ONE (07:07)
[2023-06-23] MEDS ORDERED: NEOSTIGMINE 1 MG/ML 10 ML VIAL ONE (07:07)
[2023-06-23] MEDS ORDERED: LIDOCAINE 1% INJ 10MG/ML (20 ML MDV) ONE (07:07)
[2023-06-23] MEDS ORDERED: MIDAZOLAM 2 MG/2 ML VIAL ONE (07:07)
[2023-06-23] MEDS ORDERED: SODIUM CHLORIDE 0.9% (PF) 10 ML VIAL ONE (07:07)
[2023-06-23] MEDS ORDERED: fentaNYL (PF) 50 MCG/ML 2 ML AMP ONE (07:07)
[2023-06-23] MEDS ORDERED: ROCURONIUM 10 MG/ML (5 ML VIAL) IV ONE (07:07)
[2023-06-23] MEDS ORDERED: ETOMIDATE 2 MG/ML 10 ML VIAL ONE (07:07)
[2023-06-23] MEDS ORDERED: TRANEXAMIC 1,000 MG/100ML-NACL PREMIX BAG ONE (07:07)
[2023-06-23] MEDS ORDERED: GLYCOPYRROLATE 0.2 MG/ML 2 ML VIAL ONE (07:07)
[2023-06-23] MEDS ORDERED: DEXAMETHASONE SOD PHOSPHATE 4 MG/ML 1 ML VIAL ONE (07:07)
[2023-06-23] MEDS: ceFAZolin 1,000 MG in SODIUM CHLORIDE 0.9% 1,000 ML IRRIGATION ONE (07:45)
--- NOTE | 2023-06-23 07:57 | P.ANPRN ---
Procedure Note - Anesthesia - Nerve Block Performed Right Adductor Canal Infusion Date of Procedure: 06/23/23 Procedure Start Time: 06:40 Procedure Stop Time: 06:51 Location of Patient: PreOp Indication: Acute Post-Operative Pain, Requested by Surgeon Specifically requested for management of pain by DrCorrina: Gume Ambrocio Sedation Type: Sedate with meaningful contact maintained Preparation: Sterile Prep, Sterile Dressing Position: Supine Catheter: Indwelling Needle Types: Pajunk Needle Gauge: 18 Ultrasound used to visualize needle placement: Yes Ultrasound used to observe medication spread: Yes Blood Aspirated: No Pain Paresthesia on Injection Noted: No Resistance on Injection: Normal Image Stored and Saved: Yes Events: Uneventful and Well Tolerated (Ropivacaine 0.25%, 20 mls with 5 mg of decadron)
--- NOTE | 2023-06-23 07:59 | P.ANPRN ---
Procedure Note - Anesthesia - Nerve Block Performed Right Pb Single Date of Procedure: 06/23/23 Procedure Start Time: 06:52 Procedure Stop Time: 06:58 Indication: Acute Post-Operative Pain, Requested by Surgeon Specifically requested for management of pain by DrCorrina: Gume Ambrocio Sedation Type: Sedate with meaningful contact maintained Preparation: Sterile Prep Position: Supine Catheter: None Needle Types: Facet Needle Gauge: 20 Ultrasound used to visualize needle placement: Yes Ultrasound used to observe medication spread: Yes Blood Aspirated: No Pain Paresthesia on Injection Noted: No Resistance on Injection: Normal Image Stored and Saved: Yes Events: Uneventful and Well Tolerated (Ropivacaine 0.25% , 20 mls with 5 mg of Decadron)
--- NOTE | 2023-06-23 08:26 | P.OP ---
Date of Procedure: 06/23/23 Preoperative Diagnosis: severe osteoarthritis right knee Postoperative Diagnosis: severe osteoarthritis right knee Procedure(s) Performed: right total knee arthroplasty Implants: [employer] Nephew Journey II CR Oxinium cruciate retaining femoral component size 3, right [employer] Journey nonporous tibial baseplate size 2, right [employer] Journey II, XLPE Deep Dished articular insert, size 11 mm, Size 1-2, right [employer] Journey [place] II resurfacing patellar component, oval, 29 mm All components were cemented using Pal[place]os R bone cement The articulation is Oxinium on polyethylene Anesthesia: MARIO Surgeon: Gume Ambrocio Credit Cashier #1: Jerome Alvarado Estimated Blood Loss (ml): 25 Pathology: none sent Condition: stable Disposition: PACU Indications for Procedure: The patient's knee is end-stage, and conservative management has failed. The operation of knee replacement has been discussed at length in the office, as well as potential risks and complications. These are inclusive of, but not limi jessy to: Infection, bleeding, scarring, discomfort, stiffness, blood vessel and nerve damage, need for further surgery, failure to relieve symptoms, persistence, recurrence, or worsening of problems, loosening, dislocation, wear, blood clot, pulmonary embolism, , gait dysfunction, stiffness, and other risks as discussed in the office. Patient elects to proceed and the consent form has been signed. Operative Findings: the operative findings are consistent with severe osteoarthritis of the right knee Description of Procedure: The patient was seen in the preoperative area, the consent was reviewed and the operative site was marked with a skin marker. The patient verified the procedure and the operative site. An adductor canal pain catheter and an iPACK block were placed by anesthesia in the preoperative area. The patient was then brought to the operating room and positioned on the operating room table in the supine position. Preoperative antibiotics and a gram of tranexamic acid were given intravenously. A general anesthetic was administered by the anesthesia department. Care was taken to make sure that all pressure points were adequately padded. A tourniquet was placed on the upper thigh and the lower extremity was prepped with ChloraPrep and draped in usual sterile fashion. A universal time-out was then performed which confirmed the patient's name, surgical site, ALLERGIES, and consent. The lower extremity was then exsanguinated and tourniquet was inflated to 250 mmHg. A standard anterior midline approach to the knee was performed. The skin and subcutaneous tissue were sharply dissected down to the patellar tendon. A medial parapatellar arthrotomy was then performed. The knee was then extended, the patellar was everted, and the knee was flexed. The infra-patellar fat pad was removed in order to enhance exposure. The anterior horns of both menisci were excised, and a release was performed to the posterior medial aspect of the knee. On gross visual inspection, there was complete loss of articular cartilage in the medial and patellofemoral joint spaces. There was also significant cartilage damage in the lateral compartment. There were multiple periarticular osteophytes globally about the knee which were then removed with a Ronguer. The femoral canal was then opened with the 9.5 mm intramedullary drill. The 8 mm intramedullary charles was then inserted into the femoral canal with the distal femoral cutting guide set for 5 of valgus. The distal femoral cutting block was then pinned in place. The intramedullary charles was then removed, and the distal femur was then cut. The cutting block was then removed and the cut was checked for symmetry. The resected bone was then measured to confirm the appropriate distal femoral resection. Next, the sizing guide was then placed and set for 3 external rotation based off of the epicondylar axis and [place]'s line. Pins were then placed and the drill holes, and the femur was sized with the sizing stylus. The pins were then removed, and the sizing guide was then removed. The spikes of the appropriate size femoral block was th en placed into the predrilled holes, and malleted into place. Two 45 mm pins were then placed into the fixation holes on the cutting block. An marlon wing was then used to ensure there would be no notching with the anterior cut. The anterior condyles were cut without notching. The anterior chord cut was then performed, followed by the posterior cut, posterior chamfer cut, and the anterior chamfer cut. The collateral ligaments were protected during the entire process. The cutting block was then removed. Any remaining bone and osteophytes were removed from the femur with a Ronguer. Attention was then directed to the tibia. The remaining ACL was removed with a Ronguer, and the tibia was then gently subluxed forward with a large bent knee retractor. Any remaining menisci were excised. The posterior lateral corner was cauterized in order to coagulate the lateral geniculate artery. The extra medullary tibial cutting guide was then placed, set for the appropriate rotation, slope, and depth of resection. The proximal tibia cutting guide was then pinned in place. Proximal tibia was then cut and sized. A curved osteotome was then used to remove any posterior osteophytes from the distal femur. The femoral trial was placed. A narrow saw blade was then used to remove the anterior intracondylar femoral bone. The CR notch trial was then placed. The tibial trial was placed with the appropriate-sized insert. The knee was able to fully extend and flex to 130 and was stable throughout all range of motion. The knee was then extended and the patella was everted. Patella was then measured, and then using an osteotomy guide, the patella was cut at the appropriate level. The patellar component was sized. The patellar drill guide was placed and the patella was drilled. The patella trial was then placed. The knee was then taken through range of motion with the patella trial and the patella tracked normally using the no thumbs technique. The patella trial was then removed. The knee was then flexed and lug holes were drilled through the femoral trial and the femoral trial was then removed. The tibial was then re- exposed, and the tibial broach guide was then pinned in place after it was set for the appropriate rotation to allow for the most coverage without overhang. The tibia was then reamed and broached. The femoral canal was plugged with autologous bone. The cut surfaces of bone were then irrigated with pulsatile lavage. The knee was also irrigated with Irrisept solution. The components were then opened, the cement was mixed. Cement was placed on the backside of the femoral, tibial, and patellar components. Cement was then applied to the tibial surface and pressurized into the surface using finger pressurization technique. The tibial component was then applied and excess cement was removed after it was impacted securely noted to be flush with the cut surface. In similar fashion, the cement was applied to the cut femoral surface, pres surized and using finger pressurization the component was impacted in place. Excess cement was removed. The polyethylene spacer was then implanted and locked into position. Patellar component was then applied in a similar technique and the patellar clamp was used to hold patella in place while the cement hardened. The knee was held in full extension while the cement hardened. Once the cement had fully hardened, the knee was reinspected. Any other cement extrusion was removed the final range of motion testing showed range of motion from 0-130 with excellent stability, both medial and laterally and appropriate alignment of the leg. Patella tracked normally. After the cemented hardened, the tourniquet was released and hemostasis was obtained. A second gram of transexamic acid was given intravenously. The knee was again irrigated. The knee was again taken through range of motion and found to be stable throughout all range of motion of 0-130, and the patella tracked normally. The fascia was then closed with 0 Vicryl followed by #2 strata fix suture. The subcutaneous tissue was closed with 3-0 Vicryl and 3-0 strata fix. Exofin glue was used for the skin and placed with the knee in flexion. After the glue had dried, and Optafoam silver impregnated dressing was applied. A lightly compressive dressing was applied using web roll and Vishnu wrap. Patient was then transferred to the stretcher and taken to recovery room in stable condition. Sponge and needle counts were correct. The health center assistant LUIS CARLOS Jean-Baptiste was required due the complexity surgery and the need for a skilled ophthalmology surgical technician. She assisted in positioning, draping, retraction, and closure of the wound.
[2023-06-23] MEDS: HYDROmorphone 0.5 MG/0.5 ML SYRINGE IVP PRN ×2 (08:58→15:24)
[2023-06-23] MEDS ORDERED: ONDANSETRON 4 MG/2 ML VIAL IVP PRN (09:03)
[2023-06-23] MEDS ORDERED: NALOXONE 0.4 MG/ML 1 ML VIAL IV PRN (09:03)
[2023-06-23] MEDS ORDERED: HYDROcodone/APAP 5-325MG 1 EACH TAB PO PRN (09:03)
[2023-06-23] MEDS ORDERED: HYDROmorphone 0.5 MG/0.5 ML SYRINGE IVP PRN ×2 (09:03)
[2023-06-23] MEDS: ROPIVACAINE 1,100 MG, SODIUM CHLORIDE 0.9% 500 ML 330 ML, EMPTY PAIN BALL 1 EACH MISCELLANE PRN (09:05)
[2023-06-23] MEDS: ONDANSETRON 4 MG/2 ML VIAL ONE (09:31)
--- NOTE | 2023-06-23 10:31 | XR ---
EXAMINATION TYPE: XR knee limited 2 views RT DATE OF EXAM: 06/23/2023 Comparison: None Clinical History: 67-year-old female Evaluation for Postop abnormality and alignment Findings: Images show placement of right total knee arthroplasty. Both distal femoral and proximal tibial compo nents of the prosthesis are well seated without periprosthetic fracture. Alignment grossly anatomic. A couple ossific densities measuring 7 mm and 5 mm along the lateral joint line probably postsurgical debris. Anterior soft tissue swelling with scattered soft tissue air as well as underlying joint eff usion and intra-articular air related to recent operation. Impression: Postoperative appearance right total knee arthroplasty. A couple ossific fragments measuring 7 mm and 5 mm laterally, likely surgical debris.
[2023-06-23] MEDS: HYDROcodone/APAP 5-325MG 1 EACH TAB PO PRN (13:23)
[2023-06-23] MEDS: SODIUM CHLORIDE 0.9% 1,000 ML IV SCH (13:23)
--- NOTE | 2023-06-23 13:44 | P.CONS ---
History of Present Illness - Reason for Consult Consult date: 06/23/23 (Postoperative consult) - History of Present Illness Consult: Postoperative Patient Mrs. Prater: 67 years old female Patient had elective right total knee arthroplasty done by Dr. Gume fan, orthopedic surgeon Postoperative she is conscious alert oriented and she had the surgery on general anesthesia She is feeling better and hungry and ate. She had pump for pain in the joint as well. Anesthesia Vital sign temperature afebrile, pulse 67 bpm regular, respiratory rate 16, and blood pressure 124/62, and her oxygen saturation 95% On examination: Conscious alert oriented x 3 only complaint with the specific pain of the right knee surgery which is understandable and acceptable. Head was normocephalic atraumatic pupil was equal reactive oropharynx was negative natural teeth Neck was supple no JVD no thyromegaly no lymphadenopathy. Chest is clear to auscultation percussion no wheezes no rhonchi Heart regular sinus rhythm no dysrhythmia Abdomen soft positive bowel sounds and no tenderness no nausea no vomiting Extremities she has a right knee wrapped with Vishnu bandage status post total knee arthroplasty. Normal pulses on the feet able to move her legs and the feet. Left lower extremity is normal. Neurology: Stable no lateralizing sign and no weakness Assessment: Status postoperative right knee total arthroplasty Medically stable. Past Medical History Past Medical History: COPD, CVA/TIA, GERD/Reflux, Hyperlipidemia, Hypertension, Myocardial Infarction (ID), Pneumonia, Rheumatoid Arthritis (RA), Sleep Apnea/CPAP/BIPAP Additional Past Medical History / Comment(s): TIA weaker on the left side, DDD, ARTHRITIS WITH KNEE PAIN, USES CANE, carotid aneurysm followed conservatively. 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 does not wear cpap. swelling to bilateral lower legs Last Myocardial Infarction Date:: 2009 History of Any Multi-Drug Resistant Organisms: None Reported Past Surgical History: Adenoidectomy, Orthopedic Surgery, Tonsillectomy Additional Past Surgical History / Comment(s): Adnexal cystectomy 2014., colonoscopy , CATARACTS. rt rotator cuff, Right knee replacement Past Anesthesia/Blood Transfusion Reactions: No Reported Reaction Past Psychological History: Anxiety, Depression Additional Psychological History / Comment(s): NO MEDS NEEDED AT THIS TIME Smoking Status: Former smoker Past Alcohol Use History: Occasional Additional Past Alcohol Use History / Comment(s): Quit smoking approximately 2014, SMOKED SOCIALLY OFF AND ON SINCE TEENAGER. Past Drug Use History: Cocaine Additional Drug Use History / Comment(s): cocaine use in 20-30s, not currently. TRIED CBD OIL pt aware not to use 24 hrs before procedure - Past Family History Mother Family Medical History: Hypertension, Myocardial Infarction (ID), Renal Disease Additional Family Medical History / Comment(s): Uterine fibroids. Renal failure. enlarged heart Brother(s) Family Medical History: Diabetes Mellitus Father Family Medical History: COPD Additional Family Medical History / Comment(s): Colon cancer RUNS IN FAMILY-NOT SURE IF HE ACTUALLY HAD IT OR NOT Sister(s) Family Medical History: Renal Disease Additional Family Medical History / Comment(s): Renal failure. Medications and Allergies Home Medications Medication Instructions Recorded Confirmed Type HYDROcodone/APAP 10-325MG [[place] 1 tab PO BID PRN 02/16/14 06/23/23 History 10] Montelukast [Singulair] 10 mg PO HS 02/16/14 06/23/23 History amLODIPine [Norvasc] 10 mg PO HS 04/06/19 06/23/23 History Albuterol Inhaler [Ventolin Hfa 1 puff INHALATION DIRECTED 07/27/19 06/23/23 History Inhaler] Multivitamins, Thera [Multivitamin 1 tab PO DAILY 07/27/19 06/23/23 History (formulary)] Omeprazole 20 mg PO DAILY PRN 07/27/19 06/23/23 History Atorvastatin [Lipitor] 20 mg PO HS 08/23/19 06/23/23 History Fluticasone Nasal [place] [Flonase 1 spray EA NOSTRIL DAILY PRN 08/23/19 06/23/23 History Nasal [place]] Aspirin [Children's Aspirin] 81 mg PO DAILY 05/07/22 06/23/23 History Cholecalciferol [Vitamin D3 (25 25 mcg PO DAILY 05/06/23 06/23/23 History Mcg = 1000 Iu)] Ipratropium-Albuterol Nebulize 3 ml INHALATION QID PRN 05/06/23 06/23/23 History [Duoneb 0.5 mg-3 mg/3 ml Soln] Vitamin B Complex 1 each PO DAILY 05/06/23 06/23/23 History lisinopriL [Zestril] 20 mg PO DAILY 05/06/23 06/23/23 History Furosemide [Lasix] 20 mg PO DAILY 06/22/23 06/23/23 History Ibuprofen [Motrin Ib] 400 - 600 mg PO DIRECTED PRN 06/22/23 06/23/23 History Aspirin 325 mg PO BID #60 tab 06/23/23 Rx HYDROcodone/APAP 10-325MG [[place] 1 each PO Q6H PRN #28 tab 06/23/23 Rx 10] Ondansetron [Zofran] 4 mg PO Q6HR PRN #30 tab 06/23/23 Rx Sennosides-Docusate Sodium 1 tab PO BID PRN #60 tablet 06/23/23 Rx [Senokot-S] Allergies Allergy/AdvReac Type Severity Reaction Status Date / Time AI FISH Allergy Severe Anaphylaxis Uncoded 06/23/23 05:56 Physical Exam Vitals: Vital Signs Temp Pulse Pulse Resp BP BP Pulse Ox 06/23/23 12:00 67 16 124/62 95 06/23/23 11:31 67 16 116/59 96 06/23/23 11:15 62 16 124/60 96 06/23/23 11:01 62 16 134/72 96 06/23/23 10:45 63 16 121/62 96 06/23/23 10:31 63 16 120/61 96 06/23/23 10:16 63 16 121/62 96 06/23/23 10:02 63 16 133/66 100 06/23/23 09:45 65 16 139/68 100 06/23/23 09:31 70 16 143/65 100 06/23/23 09:15 72 16 145/64 98 06/23/23 09:00 78 16 138/61 98 06/23/23 08:54 97 F L 82 16 167/82 98 06/23/23 07:00 66 18 125/63 99 06/23/23 06:26 97.3 F L 64 18 139/62 99 Intake and Output 06/22/23 06/23/23 06/23/23 22:59 06:59 14:59 Intake Total 100 651 Output Total 25 Balance 100 626 Intake: IV 100 651 Output: Estimated Blood Loss 25 Other: Weight 85.3 kg 85.3 kg
[2023-06-23] MEDS: SENNOSIDES-DOCUSATE SODIUM 1 EACH TAB PO SCH (20:56)
[2023-06-24] MEDS: MAGNESIUM HYDROXIDE 2,400 MG/30 ML CUP PO PRN (06:09)
--- NOTE | 2023-06-24 07:11 | P.PN ---
Subjective Progress Note Date: 06/24/23 The patient is doing well status post total knee replacement. Pain is well controlled by a combination of local anesthetic infusion through the adductor canal catheter and oral analgesics. There are no signs of infection around the catheter skin entry site. The local anesthetic infusion will be continued as per protocol. Objective - Vital Signs Vital signs: Vital Signs Temp 98.2 F 06/24/23 02:29 Pulse 62 06/24/23 02:29 Resp 13 06/24/23 02:29 BP 116/76 06/24/23 02:29 Pulse Ox 96 06/24/23 02:29 FiO2 Intake & Output 06/23/23 06/24/23 06/24/23 18:59 06:59 18:59 Intake Total 651 Output Total 25 Balance 626 Weight 85.3 kg Intake: IV 651 Output: Estimated Blood Loss 25 Other: # Voids 1 1
[2023-06-24 08:55] LABS: Basophils # (A) 0.02 X 10*3/uL (0.00-0.10); Basophils % (A) 0.2 %; Eosinophils # (A) 0.01 X 10*3/uL (0.04-0.35); Eosinophils % (A) 0.1 %; HCT 33.2 % (37.2-46.3); HGB 10.5 g/dL (12.0-15.0); Lymphocytes # (A) 1.83 X 10*3/uL (0.90-5.00); Lymphocytes % (A) 16.8 %; MCH 29.6 pg (27.0-32.0); MCHC 31.6 g/dL (32.0-37.0); MCV 93.5 FL (80.0-97.0); Mean Platelet Volume 12.5 FL (9.5-12.2); Monocytes # (A) 1.07 X 10*3/uL (0.20-1.00); Monocytes % (A) 9.8 %; NRBC Per 100 WBC 0 X 10*3/uL (0.00-0.01); Neutrophils # (A) 7.95 X 10*3/uL (1.80-7.70); Neutrophils % (A) 72.7 %; Platelet Count 201 X 10*3/uL (140-440); RBC 3.55 X 10*6/uL (4.10-5.20); RDW 14.7 % (11.5-14.5); WBC 10.92 X 10*3/uL (4.50-10.00)
[2023-06-24] MEDS: KETOROLAC 15 MG/ML 1 ML VIAL IVP SCH (09:13)
--- NOTE | 2023-06-24 09:42 | P.PN ---
Subjective Progress Note Date: 06/24/23 Principal diagnosis: Right knee osteoarthritis Patient is status post right knee TKA performed yesterday, June 22. She is able to move her right hip, knee, ankle, and toes. She complains of right knee pain "I would rather have a baby." Otherwise no complaints. Denies fever, chills, decreased sensation, nausea, vomiting. Objective - Vital Signs Vital signs: Vital Signs Temp 97.8 F 06/24/23 07:15 Pulse 57 L 06/24/23 07:15 Resp 16 06/24/23 07:15 BP 135/84 06/24/23 07:15 Pulse Ox 98 06/24/23 07:15 FiO2 Intake & Output 06/23/23 06/24/23 06/24/23 18:59 06:59 18:59 Intake Total 651 Output Total 25 Balance 626 Weight 85.3 kg Intake: IV 651 Output: Estimated Blood Loss 25 Other: # Voids 1 1 - Exam Wound and dressing is clean, dry, and intact without purulent drainage. Mild swelling and erythema consistent with postsurgical changes. Neurovascularly intact. Maintains full use of the right hip, knee, ankle, and toes. - Labs CBC & Chem 7: 06/24/23 05:36 Labs: Abnormal Lab Results - Last 24 Hours (Table) 06/24/23 Range/Units 05:36 WBC 10.92 H (4.50-10.00) X 10*3/uL RBC 3.55 L (4.10-5.20) X 10*6/uL Hgb 10.5 L (12.0-15.0) g/dL Hct 33.2 L (37.2-46.3) % MCHC 31.6 L (32.0-37.0) g/dL RDW 14.7 H (11.5-14.5) % MPV 12.5 H (9.5-12.2) FL Neutrophils # 7.95 H (1.80-7.70) X 10*3/uL Monocytes # 1.07 H (0.20-1.00) X 10*3/uL Eosinophils # 0.01 L (0.04-0.35) X 10*3/uL Assessment and Plan Assessment: Status post 1 day right TKA. (1) Osteoarthritis of right knee Current Visit: Yes Status: Acute Code(s): M17.11 - UNILATERAL PRIMARY OSTEOARTHRITIS, RIGHT KNEE SNOMED Code(s): 395444584871023 (2) Status post total right knee replacement Current Visit: Yes Status: Acute Code(s): Z96.651 - PRESENCE OF RIGHT ARTIFICIAL KNEE JOINT SNOMED Code(s): 5379841565465 Plan: Clinical findings discussed with patient. Continue [place] and add Toradol for pain. Continue physical therapy. Plan discharge to rehab. Patient agrees to treatment plan.
[2023-06-24] MEDS ORDERED: PANTOPRAZOLE 40 MG TABLET PO PRN (14:15)
[2023-06-24] MEDS ORDERED: ALBUTEROL HFA INHALER INHALATION SCH (14:15)
[2023-06-24] MEDS ORDERED: FLUTICASONE 50MCG/SPRAY NASAL 16GM EA NOSTRIL PRN (14:15)
--- NOTE | 2023-06-24 14:45 | P.PN ---
Subjective Progress Note Date: 06/24/23 Principal diagnosis: Diagnosis: Status postelective right total knee arthroplasty 2. Hypertension with hypertensive heart disease 3. History of asthma and COPD. 4. Mild anemia postoperative with a drop of hemoglobin to 10.5./Hematocrit 33.2. 5. Postoperative constipation with the pain medication 6. Local pain associated with surgery. 7. Hyperlipidemia. 8. Vitamin D deficiency. Progress note Date of service: 06/24/2023. Dictation by Dr. Saldana. Patient seen [id number] at bedside Complain of constipation despite having laxative. Patient underwent elective right total knee arthroplasty by Dr. Gume butler. On 06/23/2023 Patient complaining of the local pain which is understandable but she also had history of chronic pain syndrome has been seen by Dr. galeana and ervin. Patient with history of COPD and asthma and she had history of hypertension. Followed by Pulmonary and critical care Dr. Dameon Haddad On the physical exam she is conscious alert oriented able to communicate freely Vital sign temperature 97.8 F oral and heart rate 5762. Respiratory rate 16/min nonlabored. Blood pressure 135/84. Mean blood pressure 101. Oxygen saturation 98% on room air. The head was normocephalic atraumatic and pupil was equal reactive conjunctiva was pink sclera was nonicteric extraocular muscle movement intact natural teeth able to eat and swallow Neck was supple no JVD no thyromegaly no lymph adenopathy. Chest is currently clear no wheezes no rhonchi's with a history of COPD in the past Heart: Regular sinus rhythm no dysrhythmia no chest pain Abdomen soft. Bowel sounds no organ enlargement but she complains of constipation. Extremities she had elective right total knee arthroplasty and a wrap with the gauze and bandage she has severe pain on light touch and she had also drainage and treatment with needle for Novocain local. Neurologically stable. Assessment: 1. Complaining of constipation 2. Localized pain in the right knee status post surgery and treated with medication per orthopedic 3. History of COPD and asthma stable no exacerbation. Recommendations and plan: 1. We started her on glycerin so rectal subsartorial is and if that is not helpful we may advance to Dulcolax rectal suppository. 2. Renew all her medication with the precaution added to avoid hypotension. Laboratory reviewed with mild drop in the hemoglobin and hematocrit. Secondary to the surgery. Acceptable. Objective - Vital Signs Vital signs: Vital Signs Temp 97.8 F 06/24/23 07:15 Pulse 57 L 06/24/23 07:15 Resp 16 06/24/23 07:15 BP 135/84 06/24/23 07:15 Pulse Ox 98 06/24/23 07:15 FiO2 Intake & Output 06/23/23 06/24/23 06/24/23 18:59 06:59 18:59 Intake Total 651 Output Total 25 Balance 626 Weight 85.3 kg Intake: IV 651 Output: Estimated Blood Loss 25 Other: # Voids 1 1 - Labs CBC & Chem 7: 06/24/23 05:36 Labs: Abnormal Lab Results - Last 24 Hours (Table) 06/24/23 Range/Units 05:36 WBC 10.92 H (4.50-10.00) X 10*3/uL RBC 3.55 L (4.10-5.20) X 10*6/uL Hgb 10.5 L (12.0-15.0) g/dL Hct 33.2 L (37.2-46.3) % MCHC 31.6 L (32.0-37.0) g/dL RDW 14.7 H (11.5-14.5) % MPV 12.5 H (9.5-12.2) FL Neutrophils # 7.95 H (1.80-7.70) X 10*3/uL Monocytes # 1.07 H (0.20-1.00) X 10*3/uL Eosinophils # 0.01 L (0.04-0.35) X 10*3/uL
[2023-06-24] MEDS ORDERED: amLODIPine 10 MG TAB PO SCH (21:00)
[2023-06-24] MEDS: MONTELUKAST 10 MG TAB PO SCH (21:14)
[2023-06-24] MEDS: ATORVASTATIN 20 MG TAB PO SCH (21:14)
[2023-06-24] MEDS: ASPIRIN 325 MG TAB PO SCH (21:14)
[2023-06-24] MEDS: IPRATROPIUM-ALBUTEROL 3 ML NEB INHALATION PRN (21:23)
[2023-06-24] MEDS: SIMETHICONE 80 MG CHEWABLE PO PRN (21:46)
[2023-06-24] MEDS: GLYCERIN ADULT SUPPOSITORY 1 EACH RECTAL SCH (22:25)
--- NOTE | 2023-06-25 08:27 | P.PN ---
Subjective Progress Note Date: 06/25/23 Principal diagnosis: Right knee osteoarthritis This is a 67-year-old female who is status post total right knee arthroplasty on 06/23/2023. Patient states that she is having severe pain that she is rating 9- 1/2/10. She is also complaining of right upper extremity swelling as well as right-sided facial swelling and numbness and tingling. She states that she does have history of CVA in the past. She is currently on Dilaudid and Reading 5/325 for pain. Vital signs are stable. Objective - Vital Signs Vital signs: Vital Signs Temp 97.7 F 06/25/23 04:21 Pulse 67 06/25/23 04:21 Resp 15 06/25/23 04:21 BP 143/89 06/25/23 04:21 Pulse Ox 98 06/25/23 04:21 FiO2 Intake & Output 06/24/23 06/25/23 06/25/23 18:59 06:59 18:59 Intake Total 840 Balance 840 Intake: IV 840 Sodium Chloride 0.9% 1, 840 000 ml @ 70 mls/hr IV . [id number] [facility] Rx#:[id number] Other: # Voids 8 # Bowel Movements 3 - Exam W this is a pleasant 67-year-old female in no acute distress. She is alert and oriented at this time. Exam of the head neck revealed no facial asymmetry. She can puff her cheeks raise her eyebrows and smile symmetrically. There is no tongue deviation noted. Speech is appropriate with no slurring. Exam of the upper extremities reveals mild soft tissue swelling from the forearm down into the hand. IV site shows no obvious extravasation. She has full finger motion without difficulty. Neurovascular status to the upper extremities is intact. Exam of the lower extremities reveals that her knee dressing is clean, dry and intact. There is mild to moderate soft tissue swelling about the knee. There is very mild ecchymosis. No erythema. She has full foot and ankle motion without difficulty or pain. Neurovascular status to the lower extremity is intact. - Labs CBC & Chem 7: 06/24/23 05:36 Labs: Abnormal Lab Results - Last 24 Hours (Table) 06/24/23 Range/Units 05:36 WBC 10.92 H (4.50-10.00) X 10*3/uL RBC 3.55 L (4.10-5.20) X 10*6/uL Hgb 10.5 L (12.0-15.0) g/dL Hct 33.2 L (37.2-46.3) % MCHC 31.6 L (32.0-37.0) g/dL RDW 14.7 H (11.5-14.5) % MPV 12.5 H (9.5-12.2) FL Neutrophils # 7.95 H (1.80-7.70) X 10*3/uL Monocytes # 1.07 H (0.20-1.00) X 10*3/uL Eosinophils # 0.01 L (0.04-0.35) X 10*3/uL Assessment and Plan (1) Osteoarthritis of right knee Current Visit: Yes Status: Acute Code(s): M17.11 - UNILATERAL PRIMARY OSTEOARTHRITIS, RIGHT KNEE SNOMED Code(s): 638833528707007 (2) Status post total right knee replacement Current Visit: Yes Status: Acute Code(s): Z96.651 - PRESENCE OF RIGHT ARTIFICIAL KNEE JOINT SNOMED Code(s): 4131994605211 Plan: Clinical findings discussed with patient. Discussed findings with the nurse. She will contact Dr. Saldana for further evaluation of her facial swelling and numbness and tingling. I have ordered Percocet 5 mg. Continue physical therapy. Plan discharge to rehab. Patient agrees to treatment plan.
[2023-06-25] MEDS ORDERED: ASPIRIN 81 MG PO SCH (09:00)
[2023-06-25] MEDS ORDERED: NON FORMULARY DRUG (Vitamin B Complex [Vitamin B Complex] 1 EACH Capsule) PO SCH (09:00)
[2023-06-25] MEDS: MULTIVITAMINS, THERA 1 EACH TAB PO SCH (10:24)
[2023-06-25] MEDS: CHOLECALCIFEROL 25 MCG (1000 IU) TABLET PO SCH (10:25)
[2023-06-25] MEDS: lisinopriL 20 MG TAB PO SCH (10:25)
[2023-06-25] MEDS: FUROSEMIDE 20 MG TAB PO SCH (10:25)
--- NOTE | 2023-06-25 14:51 | P.PN ---
Objective - Vital Signs Vital signs: Vital Signs Temp 97.8 F 06/25/23 07:35 Pulse 82 06/25/23 13:17 Resp 17 06/25/23 07:35 BP 158/84 06/25/23 07:35 Pulse Ox 98 06/25/23 07:35 FiO2 Intake & Output 06/24/23 06/25/23 06/25/23 18:59 06:59 18:59 Intake Total 840 250 Balance 840 250 Intake: IV 840 Sodium Chloride 0.9% 1, 840 000 ml @ 70 mls/hr IV . [id number] [facility] Rx#:[id number] Oral 250 Other: # Voids 8 # Bowel Movements 3 - Labs CBC & Chem 7: 06/24/23 05:36
--- NOTE | 2023-06-25 14:52 | P.PN ---
Subjective Progress Note Date: 06/25/23 Progress note Date of service 06/25/[address] Saldana Patient seen evaluated at bedside discussed with her her current complaint Patient complaining in the clinical quality analyst that she had right facial numbness which resolved w negative as well. As temporary with the underlying severe pain 10/10 in the right knee in the presence of orthopedic surgeon Dr. Mobley noticeable dictation/physician assist ant As patient seen today and evaluated she has been able to eat lunch no facial asymmetry good handgrip bilateral, she had IV on the right arm and she felt that swelling however the IV is stable and no pitting edema or no lymphedema and able to move her right arm normally with flexion extension and flexion of the fingers and toes even on the right side that had surgery and no weakness or numbness. Ankle reflexes normal good extension flexion of the foot able to move all 4 extremities no lateralizing sign and no facial asymmetry. Patient has a history of anxiety neurosis which intermittently appear specially when she had severe pain in the right knee postoperative and was 10/10 Patient able to eat and swallow and communicate and talk and as well as her pupil is equal reactive and able to do the testing for cranial nerves without any abnormalities. Her vital signs indicate temperature number 97.8 F oral and her heart rate ranging between 80-72 with the respiratory rate 17/min nonlabored and her oxygen saturation 98% on room air. On exam HEENT was negative head was normocephalic atraumatic pupil equal reactive conjunctiva was pink sclera was nonicteric Patient complaining as well that she did not have a bowel movement in the spite of the medication. Given already by the orthopedic for the stool soft number and the glycerin rectal suppositories with the underlying pain and pain control medication. We will be starting her on Dulcolax rectal suppository today and if there is no improvement we will be starting you with magnesium citrate or other agent for moving the bowel. On the exam: Her vital sign is stable and temperature 97.8 F oral pulse rate has been stable with 80/min regular sinus and respiratory rate 17/min normal nonlabored and blood pressure 158/84 with a mean 108 with the association of the severe pain in the right knee her oxygen saturation 98% on room air. The HEENT head was normocephalic atraumatic pupil was equal reactive andOn room air. Alkaline phosphatase improving gradually fascial palpation no tenderness no pain and no asymmetry the oropharynx was normal with normal cranial nerves. And with the cranial nerve testing was negative clinically and the neck was supple no JVD no thyroid megaly no lymphadenopathy facial palpation Chest clear no wheezes no rhonchi's she is receiving her inhalation therapy with a history of COPD and asthma. Heart regular sinus rhythm and no evidence of dysrhythmia Abdomen soft positive bowel sounds but she complains of no bowel movement still. The extremities: The right knee total arthroplasty with the severe pain and Trudi nurse practitioner/physician assistant associate professor to the doctor's current height of orthopedic associate seen the patient and the started her on pain medication as well. With the pain was 10/10. No edema of the right lower extremities and no lymph or pitting.. The left lower extremities no abnormalities she has arthritis of the left knee. Assessment: 1. Underlying history of anxiety neurosis 2. No evidence of strokes. 3. Status post right total knee arthroplasty. 4. Underlying hypertension and patient started already on her medication and will tomorrow check if still blood pressure is uncontrolled or controlled. Plan: 1. Will continue the current treatment 2. Significant discussion with the patient and assured of her condition. 3 right knee pain postoperative expected and handled by the orthopedic. Objective - Vital Signs Vital signs: Vital Signs Temp 97.8 F 06/25/23 07:35 Pulse 82 06/25/23 13:17 Resp 17 06/25/23 07:35 BP 158/84 06/25/23 07:35 Pulse Ox 98 06/25/23 07:35 FiO2 Intake & Output 06/24/23 06/25/23 06/25/23 18:59 06:59 18:59 Intake Total 840 250 Balance 840 250 Intake: IV 840 Sodium Chloride 0.9% 1, 840 000 ml @ 70 mls/hr IV . [id number] [facility] Rx#:[id number] Oral 250 Other: # Voids 8 # Bowel Movements 3 - Labs CBC & Chem 7: 06/24/23 05:36
[2023-06-25] MEDS: bisacodyL 10 MG SUPP RECTAL STA (19:14)
[2023-06-26] MEDS: oxyCODONE-APAP 5-325MG 1 EACH TAB PO PRN (08:50)
[2023-06-26 09:16] LABS: Basophils # (A) 0.1 k/uL (0-0.2); Basophils % (A) 1 %; Eosinophils # (A) 0.2 k/uL (0-0.7); Eosinophils % (A) 2 %; HCT 36.5 % (34.0-46.0); HGB 11.3 gm/dL (11.4-16.0); Lymphocytes % (A) 30 %; MCH 29.2 pg (25.0-35.0); MCHC 31.1 g/dL (31.0-37.0); MCV 93.8 fL (80.0-100.0); Mean Platelet Volume 10.5; Monocytes # (A) 0.8 k/uL (0-1.0); Monocytes % (A) 8 %; Neutrophils # (A) 5.6 k/uL (1.3-7.7); Neutrophils % (A) 57 %; Platelet Count 243 k/uL (150-450); RBC 3.89 m/uL (3.80-5.40); WBC 9.9 k/uL (3.8-10.6)
--- NOTE | 2023-06-26 10:23 | P.PN ---
Subjective Progress Note Date: 06/26/23 Principal diagnosis: Status post right total knee arthroplasty This is a 67 year-old female post right total knee arthroplasty. This is post- op day 3. The patient was evaluated at the bedside today. The patient denies nausea, vomiting, abdominal pain, chest pain, or shortness of breath this morning. She states her pain is not controlled at this time. She has not received the Percocet that was ordered yesterday. We are awaiting transfer to skilled rehab. Objective - Vital Signs Vital signs: Vital Signs Temp 98.6 F 06/26/23 07:12 Pulse 76 06/26/23 08:13 Resp 18 06/26/23 07:12 BP 134/82 06/26/23 07:12 Pulse Ox 98 06/26/23 07:12 FiO2 Intake & Output 06/25/23 06/26/23 06/26/23 18:59 06:59 18:59 Intake Total 250 240 Balance 250 240 Intake: Oral 250 240 Other: # Voids 1 1 # Bowel Movements 1 - Exam The patient does not appear in acute distress. Alert and orientated x3. Dressing is clean dry and intact. Incision appears fine with no erythema or active drainage. Calf is soft and nontender. Good foot and ankle motion without difficulty. Sensation and circulatory status is intact. - Labs CBC & Chem 7: 06/26/23 08:32 Labs: Abnormal Lab Results - Last 24 Hours (Table) 06/26/23 Range/Units 08:32 Hgb 11.3 L (11.4-16.0) gm/dL Assessment and Plan (1) Osteoarthritis of right knee Current Visit: Yes Status: Acute Code(s): M17.11 - UNILATERAL PRIMARY OSTEOARTHRITIS, RIGHT KNEE SNOMED Code(s): 762255773673027 (2) Post-op pain Current Visit: Yes Status: Acute Code(s): G89.18 - OTHER ACUTE POSTPROCEDURAL PAIN SNOMED Code(s): 176287166 (3) Status post total right knee replacement Current Visit: Yes Status: Acute Code(s): Z96.651 - PRESENCE OF RIGHT ARTIFICIAL KNEE JOINT SNOMED Code(s): 9184705842780 Plan: 1. Continue pain control, she will be given the Percocet today. 2. Anticoagulation with aspirin 3. Continue physical therapy and ambulation 4. Anticipate discharge to [facility] likely tomorrow after her pain is more controlled.
--- NOTE | 2023-06-26 16:43 | P.PN ---
Subjective Progress Note Date: 06/26/23 Progress note Date of service 06/26/[address] Saldana. Patient seen and evaluated and discussed with the patient Complaining only of pain in her right knee expected with underlying recent total knee arthroplasty she had ice placed on the knee and the orthopedic PA has been controlling the pain with the Percocet. She has been receiving the inhalation therapy for lung with a history of asthma. Vital sign: Temperature 97.7 F oral, heart rate 70/min regular Respiratory rate 18/min and blood pressure 137/81 with a mean 99, oxygen saturation 99 on room air. On exam: Head was normocephalic atraumatic, pupils equal reactive, conjunctiva was pink, sclera was nonicteric, Oropharynx natural teeth Neck was supple no JVD no thyromegaly no lymphadenopathy trachea midline Chest was clear to auscultation percussion Heart was regular sinus rhythm Abdomen soft positive bowel sounds. Extremities: Upper extremities no edema Lower extremities no edema on the right leg however she has rapid and ice packs. Positive pulses Left lower extremities was no edema and positive pulses Laboratories: WBC 9.9, hemoglobin 11.3, hematocrit 36.5, platelet 243, Assessment: And plan 1. Status post right total knee arthroplasty with pain expected postsurgery 2. History of COPD has been on nebulizer and controlling her history of asthma 3. Hypertension has been controlled with the current treatment. 4. Patient apparently will go to [facility] and rehab as unable to go home with the high steps with the right total knee arthroplasty. Objective - Vital Signs Vital signs: Vital Signs Temp 97.7 F 06/26/23 15:54 Pulse 70 06/26/23 15:54 Resp 18 06/26/23 15:54 BP 137/81 06/26/23 15:54 Pulse Ox 99 06/26/23 15:54 FiO2 Intake & Output 06/25/23 06/26/23 06/26/23 18:59 06:59 18:59 Intake Total 250 240 Balance 250 240 Intake: Oral 250 240 Other: Voiding Method Toilet # Voids 1 1 # Bowel Movements 1 - Labs CBC & Chem 7: 06/26/23 08:32 Labs: Abnormal Lab Results - Last 24 Hours (Table) 06/26/23 Range/Units 08:32 Hgb 11.3 L (11.4-16.0) gm/dL
--- NOTE | 2023-06-27 08:41 | P.DS ---
Providers Date of admission: 06/23/23 05:37 Expected date of discharge: 06/27/23 Attending physician: Gume Ambrocio Consults: 06/23/23 09:03 Consult Physician Routine Consulting Provider: Itz Saldana Reason/Comments: Postoperative medical management Do you want consulting provider notified?: Yes Primary care physician: Itz Saldana - Discharge Diagnosis(es) (1) Osteoarthritis of right knee Current Visit: Yes Status: Acute (2) Post-op pain Current Visit: Yes Status: Acute (3) Status post total right knee replacement Current Visit: Yes Status: Acute Hospital Course: This is a 67-year-old female last seen in our office with complaints of right knee pain. Patient has known history of degenerative arthritis of the right knee and presented to discuss options. After discussion and consideration, patient elected to proceed with a total knee arthroplasty of the right knee. The patient was seen preoperatively and medically cleared for surgery by her primary care physician. The patient was admitted to [facility] and underwent right total knee arthroplasty on 06/23/[address] Gume Ambrocio. The procedure was performed without complications or sequelae. The patient has done well postoperatively. The patient was seen and evaluated at bedside today and denies any new complaints. Pain is reasonably controlled. Dressing is clean dry and intact. Incision looks fine with no erythema or active drainage. Calf is soft and nontender. The patient has full foot and ankle motion without difficulty. Patient's right lower extremity is neurovascular intact. Patient is orthopedically stable for discharge to skilled rehab today. See medication reconciliation for accurate list of discharge medications Pertinent Studies: Laboratory Tests 06/26/23 08:32 WBC 9.9 RBC 3.89 Hgb 11.3 L Hct 36.5 Patient Condition at Discharge: Stable Plan - Discharge Summary Discharge Rx Participant: Yes New Discharge Prescriptions: New Aspirin 325 mg PO BID #60 tab Ondansetron [Zofran] 4 mg PO Q6HR PRN #30 tab PRN Reason: Nausea oxyCODONE HCL/ACETAMINOPHEN [Percocet 5-325 mg] 1 tab PO Q4-6H PRN #30 tab PRN Reason: Pain Sennosides-Docusate Sodium [Senokot-S] 1 tab PO BID PRN #60 tablet PRN Reason: Constipation No Action Montelukast [Singulair] 10 mg PO HS HYDROcodone/APAP 10-325MG [[place] 10] 1 tab PO BID PRN PRN Reason: Pain amLODIPine [Norvasc] 10 mg PO HS Albuterol Inhaler [Ventolin Hfa Inhaler] 1 puff INHALATION DIRECTED Multivitamins, Thera [Multivitamin (formulary)] 1 tab PO DAILY Omeprazole 20 mg PO DAILY PRN PRN Reason: Heartburn Fluticasone Nasal [place] [Flonase Nasal [place]] 1 spray EA NOSTRIL DAILY PRN PRN Reason: Congestion Atorvastatin [Lipitor] 20 mg PO HS Cholecalciferol [Vitamin D3 (25 Mcg = 1000 Iu)] 25 mcg PO DAILY lisinopriL [Zestril] 20 mg PO DAILY Furosemide [Lasix] 20 mg PO DAILY Aspirin [Children's Aspirin] 81 mg PO DAILY Vitamin B Complex 1 each PO DAILY Ipratropium-Albuterol Nebulize [Duoneb 0.5 mg-3 mg/3 ml Soln] 3 ml INHALATION QID PRN PRN Reason: Wheezing Ibuprofen [Motrin Ib] 400 - 600 mg PO DIRECTED PRN PRN Reason: Pain Discharge Medication List HYDROcodone/APAP 10-325MG [[place] 10] 1 tab PO BID PRN 02/16/14 [History] Montelukast [Singulair] 10 mg PO HS 02/16/14 [History] amLODIPine [Norvasc] 10 mg PO HS 04/06/19 [History] Albuterol Inhaler [Ventolin Hfa Inhaler] 1 puff INHALATION DIRECTED 07/27/19 [History] Multivitamins, Thera [Multivitamin (formulary)] 1 tab PO DAILY 07/27/19 [History] Omeprazole 20 mg PO DAILY PRN 07/27/19 [History] Atorvastatin [Lipitor] 20 mg PO HS 08/23/19 [History] Fluticasone Nasal [place] [Flonase Nasal [place]] 1 spray EA NOSTRIL DAILY PRN 08/23/19 [History] Aspirin [Children's Aspirin] 81 mg PO DAILY 05/07/22 [History] Cholecalciferol [Vitamin D3 (25 Mcg = 1000 Iu)] 25 mcg PO DAILY 05/06/23 [History] Ipratropium-Albuterol Nebulize [Duoneb 0.5 mg-3 mg/3 ml Soln] 3 ml INHALATION QID PRN 05/06/23 [History] Vitamin B Complex 1 each PO DAILY 05/06/23 [History] lisinopriL [Zestril] 20 mg PO DAILY 05/06/23 [History] Furosemide [Lasix] 20 mg PO DAILY 06/22/23 [History] Ibuprofen [Motrin Ib] 400 - 600 mg PO DIRECTED PRN 06/22/23 [History] Aspirin 325 mg PO BID #60 tab 06/23/23 [Rx] Ondansetron [Zofran] 4 mg PO Q6HR PRN #30 tab 06/23/23 [Rx] Sennosides-Docusate Sodium [Senokot-S] 1 tab PO BID PRN #60 tablet 06/23/23 [Rx] oxyCODONE HCL/ACETAMINOPHEN [Percocet 5-325 mg] 1 tab PO Q4-6H PRN #30 tab 06/27/23 [Rx] Follow up Appointment(s)/Referral(s): Gume Ambrocio DO [Doctor of Osteopathic Medicine] - 2 Weeks (Patient may follow-up with Liya Moreno PA-C or Dr. Gume Ambrocio at [facility] in 2-3 weeks following discharge. ) Activity/Diet/Wound Care/Special Instructions: 1. Patient to remain weight-bear as tolerated on the lower extremity; patient may work with physical therapy to increase mobility and ambulation 2. Patient may utilize walker to aid in ambulation 3. Patient to continue with anticoagulation therapy with aspirin 325 mg twice daily 4. Patient may place ice over the right knee for comfort and support as needed 5. Take medications as prescribed Discharge Disposition: TRANSFER TO SNF/ECF
--- NOTE | 2023-06-27 12:48 | P.PN ---
Subjective Progress note Date of service 06/27/[address] Saldana. Patient seen today evaluated [id number] Patient's status post right total knee arthroplasty seen by nurse practitioner for orthopedic surgeon Amber and discharged to [facility] and rehab for for further care under my service. Patient requesting her pain pill before discharge discussed with the nurse to be given 1 hour before discharge. Only specific pain is for her right knee pain and has been given prescription by the orthopedic. Otherwise patient reviewed her med rec and going to [facility] at the [facility]. Physical therapy will be planned by the orthopedic physical therapy at [facility]. On the exam: Patient denied any shortness of breath or chest pain or numbness or tingling, and the IV fluid will be discontinued before discharge. Head was normocephalic atraumatic and pupils equal reactive normal hearing and oropharynx natural teeth Neck was supple no JVD no thyromegaly no lymphadenopathy trachea midline. Chest normal breath sound no wheezes no rhonchi's she had history of asthma and she is receiving inhalation therapy to be continued at the [facility]. Heart regular sinus rhythm no dysrhythmia. Abdomen soft positive bowel sounds and she had 2 BMs as well as she is urinating without no dysuria Extremities she had no edema in both lower extremities and positive pulses. She has also the right total knee arthroplasty recently in the hospital and she will be continued for rehab and follow-up with Dr. Gume butler. Neurologically no lateralizing sign. No evidence of abnormality normal cranial nerves Assessment stable general condition and will be discharged to nursing home home [facility]. 1. Continue the current medication and continue the pain controll, and prescription for pain medication given by the nurse practitioner/physician billing assistant. No evidence of asthma exacerbation on discharge Blood pressure well-controlled with the current treatment. Plan and recommendation Patient will be discharged today to [facility] and rehab and currently patient will go with a wheelchair and private car with her as the wheelchair ambulance does have [place] $. Patient stable for discharge, will see her in the [facility] next week thank you Objective - Vital Signs Vital signs: Vital Signs Temp 98.6 F 06/27/23 07:01 Pulse 65 06/27/23 07:01 Resp 16 06/27/23 07:01 BP 145/87 06/27/23 07:01 Pulse Ox 96 06/27/23 07:01 FiO2 Intake & Output 06/26/23 06/27/23 06/27/23 18:59 06:59 18:59 Other: Voiding Method Toilet Toilet # Voids 3 1 1 # Bowel Movements 0 1 1 - Labs CBC & Chem 7: 06/26/23 08:32
[2023-06-27 15:07] VITALS: BP 148/82; PULSE 66; RESP 17; TEMP 98.3
== END 2023-06-27 15:31 ==
LOC: OR 05:36 → 4SSUR 05:37 → OR 05:37 → 4SSUR 08:46
PROVIDERS: ADMIT Orthopaedic Surgery; ATTEND Orthopaedic Surgery
DX: M17.11 Unilateral primary osteoarthritis, right knee (principal); G89.18 Other acute postprocedural pain; D62 Acute posthemorrhagic anemia; I11.9 Hypertensive heart disease without heart failure; K59.09 Other constipation; J44.89 Other specified chronic obstructive pulmonary disease; I25.10 Atherosclerotic heart disease of native coronary artery without angina pectoris; G47.33 Obstructive sleep apnea (adult) (pediatric); E78.5 Hyperlipidemia, unspecified; I69.354 Hemiplegia and hemiparesis following cerebral infarction affecting left non-dominant side; I72.0 Aneurysm of carotid artery; K21.9 Gastro-esophageal reflux disease without esophagitis; E66.9 Obesity, unspecified; Z68.38 Body mass index [BMI] 38.0-38.9, adult; E55.9 Vitamin D deficiency, unspecified; G89.4 Chronic pain syndrome; R20.0 Anesthesia of skin; R20.2 Paresthesia of skin; R22.0 Localized swelling, mass and lump, head; F41.1 Generalized anxiety disorder; Z79.82 Long term (current) use of aspirin; Z79.899 Other long term (current) drug therapy; Z91.018 Allergy to other foods; Z87.891 Personal history of nicotine dependence; Z98.42 Cataract extraction status, left eye; Z98.41 Cataract extraction status, right eye; Z98.890 Other specified postprocedural states
CPT/HCPCS: 27447; 94640 ×4; 97116; 97530 ×4; 97162; 97166; 64999; 64448; 85025 ×2; 73560; G0378 ×4; C1713; C1776; C1751; J2250; J0330; J1100; J2710; J0690 ×3; J2405; J2001; J3010; J2795; J1885 ×4; J2704; J1170 ×4

== ENCOUNTER → 2023-08-31 | Outpatient (CLI) | payer MEDICARE, OTHER ==
[2023-08-31 11:31] LABS: INR 0.9 (<1.2); Partial Thromboplastin Time 26.2 sec (22.0-30.0); Prothrombin Time 10.4 sec (10.0-12.5)
[2023-08-31 14:52] LABS: Basophils # (A) 0.06 X 10*3/uL (0.00-0.10); Basophils % (A) 0.9 %; Eosinophils # (A) 0.09 X 10*3/uL (0.04-0.35); Eosinophils % (A) 1.3 %; HCT 38.9 % (37.2-46.3); HGB 12.2 g/dL (12.0-15.0); Lymphocytes # (A) 2.68 X 10*3/uL (0.90-5.00); Lymphocytes % (A) 38.8 %; MCH 28.4 pg (27.0-32.0); MCHC 31.4 g/dL (32.0-37.0); MCV 90.7 FL (80.0-97.0); Mean Platelet Volume 11.8 FL (9.5-12.2); Monocytes # (A) 0.51 X 10*3/uL (0.20-1.00); Monocytes % (A) 7.4 %; NRBC Per 100 WBC 0 X 10*3/uL (0.00-0.01); Neutrophils # (A) 3.56 X 10*3/uL (1.80-7.70); Neutrophils % (A) 51.5 %; Platelet Count 296 X 10*3/uL (140-440); RBC 4.29 X 10*6/uL (4.10-5.20); RDW 14.3 % (11.5-14.5); WBC 6.91 X 10*3/uL (4.50-10.00)
[2023-08-31 15:09] LABS: Erythrocyte Sedimentation Rate 29 mm/Hr (0-30)
[2023-08-31 15:29] LABS: % Iron Saturation 15.22 (12.00-45.00); ALT 22 U/L (8-44); AST 24 U/L (13-35); Albumin 4.6 g/dL (3.8-4.9); Albumin/Globulin Ratio 1.77 Ratio (1.60-3.17); Alkaline Phosphatase 60 U/L (41-126); BUN/Creat Ratio 22.25 Ratio (12.00-20.00); Blood Urea Nitrogen 17.8 mg/dL (9.0-27.0); Calcium 9.9 mg/dL (8.7-10.3); Carbon Dioxide 27.9 mmol/L (21.6-31.8); Chloride 99 mmol/L (96-109); Chol/HDL Ratio 2.25 Ratio; Creatine Kinase 119 U/L (26-186); Globulin 2.6 g/dL (1.6-3.3); Glucose 91 mg/dL (70-110); Iron 49 UG/DL (50-170); LDL Cholesterol,Calculated 80.3 mg/dL (0.0-131.0); Magnesium 2.1 mg/dL (1.5-2.4); Phosphorus 4.5 mg/dL (2.4-5.1); Potassium 4.3 mmol/L (3.5-5.5); Sodium 137 mmol/L (135-145); Total Bilirubin 0.3 mg/dL (0.3-1.2); Total Iron Binding Capacity 322 UG/DL (228-460); Total Protein 7.2 g/dL (6.2-8.2); Uric Acid 5.9 mg/dL (2.9-7.7); VLDL Calculation 14.06 mg/dL (5.00-40.00)
== END | disposition home or self-care (01) ==
LOC: LABWHC1 10:22
PROVIDERS: ATTEND Internal Medicine
DX: Z00.00 Encounter for general adult medical examination without abnormal findings (principal); I12.9 Hypertensive chronic kidney disease with stage 1 through stage 4 chronic kidney disease, or unspecified chronic kidney disease; E78.5 Hyperlipidemia, unspecified; N18.2 Chronic kidney disease, stage 2 (mild); M10.9 Gout, unspecified; E66.9 Obesity, unspecified; M81.0 Age-related osteoporosis without current pathological fracture; E55.9 Vitamin D deficiency, unspecified
CPT/HCPCS: 36415; 80053; 80061; 82306; 82550; 82728; 83036; 83540; 83550; 83735; 84100; 84443; 84550; 85025; 85379; 85610; 85652; 85730; 86140

== ENCOUNTER → 2023-08-31 | Outpatient (CLI) | payer MEDICARE, OTHER ==
--- NOTE | 2023-08-31 10:49 | US ---
EXAMINATION TYPE: US venous doppler duplex LE DATE OF EXAM: 08/31/2023 10:14 AM COMPARISON: US 2021 CLINICAL INDICATION: Female, 67 years old with history of R22.42, R22.41 BILATER SWELLING; Bilateral leg swelling x couple months, ever since right knee replacement SIDE PERFORMED: Bilateral TECHNIQUE: The lower extremity deep venous system is examined utilizing real time linear array sonog davina with graded compression, doppler sonography and color-flow sonography. VESSELS IMAGED: Common Femoral Vein Deep Femoral Vein Greater Saphenous Vein * Femoral Vein Popliteal Vein Small Saphenous Vein * Proximal Calf Veins (* superficial vessels) Right Leg: Appears negative for DVT Left Leg: Appears negative for DVT IMPRESSION: Grayscale, color doppler, spectral doppler imaging performed of the deep veins of the lo wer extremities. There is normal flow, compressibility, vascular waveforms.
== END | disposition home or self-care (01) ==
LOC: RADUSWWP 09:08
PROVIDERS: ATTEND Internal Medicine
DX: R22.42 Localized swelling, mass and lump, left lower limb (principal); R22.41 Localized swelling, mass and lump, right lower limb
CPT/HCPCS: 93970

== ENCOUNTER → 2023-10-01 | Outpatient (CLI) | payer MEDICARE, OTHER ==
--- NOTE | 2023-10-06 08:56 | MM ---
Reason for Exam: Screening (asymptomatic). Last mammogram was performed 1 year(s) and 4 month(s) ago. Patient History: Menarche at age 16. First Full-Term at age 19. Postmenopausal. 09/23/2016, MG discontinued stereo core RT on the right side. Maternal aunt had breast cancer. Risk Values: Shima 5 year model risk: 1.3%. NCI Lifetime model risk: 4.4%. Prior Study Comparison: 12/21/2019 Bilateral Screening Mammogram, [facility]. 02/26/2021 Bilateral Screening Mammogram, [facility]. 05/07/2022 Bilateral MG 3D screening mammo w/cad, [facility]. Tissue Density: The breasts are heterogeneously dense, which may obscure small masses. Findings: Analyzed By CAD. Right breast: There is no suspicious group of microcalcifications or new suspicious mass. Left breast: There is no suspicious group of microcalcifications or new suspicious mass. Overall Assessment: Negative, BI-RAD 1 Management: Screening Mammogram of both breasts in [address] [facility] will attempt to contact patient to return for supplemental views and ultrasound if indicated. Patient should continue monthly self-breast exams. A clinical breast exam by your physician is recommended on an annual basis. This exam should not preclude additional follow-up of suspicious palpable abnormalities. Note on Shima scores and lifetime risk: 1. A Shima score greater than 3% is considered moderate risk. If this is the case, consider specialist referral to assess eligibility for a risk reducing agent. 2. If overall lifetime risk for the development of breast cancer is 20% or higher, the patient may qualify for future screening with alternating mammogram and breast MRI. Electronically signed and approved by: Juan David Ayala DO
== END | disposition home or self-care (01) ==
LOC: RADMAMWWP 09:12
PROVIDERS: ATTEND Internal Medicine
DX: Z12.31 Encounter for screening mammogram for malignant neoplasm of breast (principal); R92.333 Mammographic heterogeneous density, bilateral breasts; Z78.0 Asymptomatic menopausal state; Z80.3 Family history of malignant neoplasm of breast
CPT/HCPCS: 77063; 77067

== ENCOUNTER → 2023-12-25 | Outpatient (CLI) | payer MEDICARE, OTHER ==
--- NOTE | 2023-12-25 10:12 | XR ---
EXAMINATION TYPE: XR chest 2V DATE OF EXAM: 12/25/2023 9:31 AM CLINICAL INDICATION: Female, 68 years old with history of CHRONIC OBSTRUCTIVE PULMONARY DISEASE W (AC JOSELIN) EXACERBATION; [facility] COMPARISON: Chest radiographs from 01/15/2018 TECHNIQUE: XR chest 2V Frontal view of the chest. FINDINGS: Lungs/Pleura: Elevated left diaphragm similar slightly increased from prior. There is no evidence of pleural effusion, focal consolidation, or pneumothorax. Pulmonary vascularity: Unremarkable. Heart/mediastinum: Cardiomediastinal silhouette is unremarkable. Musculoskeletal: No acute osseous pathology. IMPRESSION: 1. No acute cardiopulmonary disease/process. 2. Elevated left diaphragm correlate nerve injury. Similar back to 2018. [facility], , 12/25/2023 10:10 AM
== END | disposition home or self-care (01) ==
LOC: RADXRMAIN 09:10
PROVIDERS: ATTEND Internal Medicine Sleep Medicine
CPT/HCPCS: 71046

== ENCOUNTER 2024-01-08 02:07 | Emergency (ER) | payer MEDICARE, OTHER ==
--- NOTE | 2024-01-08 02:20 | ED ---
Allergic Reaction HPI - General Chief complaint: Allergic Reaction Stated complaint: Rash Time Seen by Provider: 01/08/24 02:20 Source: patient, RN notes reviewed Mode of arrival: ambulatory Limitations: no limitations - History of Present Illness Initial Comments: 68-year-old female presenting to the emergency room chief complaint of urticaria that is now been improving over the past 5 days. Patient states that she went to a [place] dinner on Thursday and when she returned home at night she began to parents a pruritic rash of her back. Patient was evaluated at [facility] on Thursday where she was prescribed steroids, an antihistamine, and topical steroid cream. Patient states that her symptoms have not been improving. States that she will take the medication and rash will somewhat subside however still returns. She denies symptoms of angioedema such as tongue swelling, lip swelling, eyelid swelling, shortness of breath or difficulty breathing. Denies use of new soaps, lotions, detergents, perfumes, or medications - Related Data Home Medications Medication Instructions Recorded Confirmed HYDROcodone/APAP 10-325MG [[place] 1 tab PO BID PRN 02/16/14 06/23/23 10] Montelukast [Singulair] 10 mg PO HS 02/16/14 06/23/23 amLODIPine [Norvasc] 10 mg PO HS 04/06/19 06/23/23 Albuterol Inhaler [Ventolin Hfa 1 puff INHALATION DIRECTED 07/27/19 06/23/23 Inhaler] Multivitamins, Thera [Multivitamin 1 tab PO DAILY 07/27/19 06/23/23 (formulary)] Omeprazole 20 mg PO DAILY PRN 07/27/19 06/23/23 Atorvastatin [Lipitor] 20 mg PO HS 08/23/19 06/23/23 Fluticasone Nasal Greene [Flonase 1 spray EA NOSTRIL DAILY PRN 08/23/19 06/23/23 Nasal Greene] Aspirin [Children's Aspirin] 81 mg PO DAILY 05/07/22 06/23/23 Cholecalciferol [Vitamin D3 (25 25 mcg PO DAILY 05/06/23 06/23/23 Mcg = 1000 Iu)] Ipratropium-Albuterol Nebulize 3 ml INHALATION QID PRN 05/06/23 06/23/23 [Duoneb 0.5 mg-3 mg/3 ml Soln] Vitamin B Complex 1 each PO DAILY 05/06/23 06/23/23 lisinopriL [Zestril] 20 mg PO DAILY 05/06/23 06/23/23 Furosemide [Lasix] 20 mg PO DAILY 06/22/23 06/23/23 Ibuprofen [Motrin Ib] 400 - 600 mg PO DIRECTED PRN 06/22/23 06/23/23 Previous Rx's Medication Instructions Recorded Aspirin 325 mg PO BID #60 tab 06/23/23 Ondansetron [Zofran] 4 mg PO Q6HR PRN #30 tab 06/23/23 Sennosides-Docusate Sodium 1 tab PO BID PRN #60 tablet 06/23/23 [Senokot-S] oxyCODONE HCL/ACETAMINOPHEN 1 tab PO Q4-6H PRN #30 tab 06/27/23 [Percocet 5-325 mg] hydrOXYzine HCL [Atarax] 25 mg PO TID PRN #15 tab 01/08/24 predniSONE 50 mg PO DAILY #4 tab 01/08/24 Allergies Allergy/AdvReac Type Severity Reaction Status Date / Time Influenza Virus Vaccines AdvReac Nausea & Verified 01/08/24 02:16 Vomiting & Diarrhea SWAI FISH Allergy Severe Anaphylaxis Uncoded 06/23/23 05:56 Review of Systems ROS Statement: Those systems with pertinent positive or pertinent negative responses have been documented in the HPI. ROS Other: All systems not noted in ROS Statement are negative. Past Medical History Past Medical History: COPD, CVA/TIA, GERD/Reflux, Hyperlipidemia, Hypertension, Myocardial Infarction (SD), Pneumonia, Rheumatoid Arthritis (RA), Sleep Apnea/CPAP/BIPAP Additional Past Medical History / Comment(s): TIA weaker on the left side, DDD, ARTHRITIS WITH KNEE PAIN, USES CANE, carotid aneurysm followed conservatively. 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 does not wear cpap. swelling to bilateral lower legs Last Myocardial Infarction Date:: 2009 History of Any Multi-Drug Resistant Organisms: None Reported Past Surgical History: Adenoidectomy, Tonsillectomy Additional Past Surgical History / Comment(s): Adnexal cystectomy 2014., colonoscopy , CATARACTS. rt rotator cuff, Right knee replacement Past Anesthesia/Blood Transfusion Reactions: No Reported Reaction Past Psychological History: Anxiety, Depression Smoking Status: Former smoker Past Alcohol Use History: Occasional Past Drug Use History: Cocaine - Past Family History Mother Family Medical History: Hypertension, Myocardial Infarction (SD), Renal Disease Additional Family Medical History / Comment(s): Uterine fibroids. Renal failure. enlarged heart Brother(s) Family Medical History: Diabetes Mellitus Father Family Medical History: COPD Additional Family Medical History / Comment(s): Colon cancer RUNS IN FAMILY-NOT SURE IF HE ACTUALLY HAD IT OR NOT Sister(s) Family Medical History: Renal Disease Additional Family Medical History / Comment(s): Renal failure. General Exam Limitations: no limitations General appearance: alert, in no apparent distress Eye exam: Present: normal appearance, PERRL, EOMI. Absent: scleral icterus, conjunctival injection, periorbital swelling Neck exam: Present: normal inspection. Absent: tenderness, meningismus, lymphadenopathy Respiratory exam: Present: normal lung sounds bilaterally. Absent: respiratory distress, wheezes, rales, rhonchi, stridor Cardiovascular Exam: Present: regular rate, normal rhythm, normal heart sounds. Absent: systolic murmur, diastolic murmur, rubs, gallop, clicks GI/Abdominal exam: Present: soft, normal bowel sounds. Absent: distended, tenderness, guarding, rebound, rigid Extremities exam: Present: normal inspection, full ROM, normal capillary refill. Absent: tenderness, pedal edema, joint swelling, calf tenderness Back exam: Present: normal inspection Skin exam: Present: urticaria (widespread located over patients arms, abdomen, legs) Course Vital Signs 01/08/24 01/08/24 02:12 03:50 Temperature 98.4 F 98.3 F Pulse Rate 68 72 Respiratory 19 18 Rate Blood Pressure 136/80 128/80 O2 Sat by Pulse 98 97 Oximetry Medical Decision Making - Medical Decision Making Was pt. sent in by a medical professional or institution (, PA, CERTIFIED ETHICAL HACKER, urgent care, hospital, or care home...) When possible be specific @ -No Did you speak to anyone other than the patient for history (EMS, parent, family, police, friend...)? What history was obtained from this source @ -No Did you review nursing and triage notes (agree or disagree)? Why? @ -I reviewed and agree with nursing and triage notes Were old charts reviewed (outside hosp., previous admission, EMS record, old EKG, old radiological studies, urgent care reports/EKG's, care home records)? Report findings @ -No old charts were reviewed Differential Diagnosis (chest pain, altered mental status, abdominal pain women, abdominal pain men, vaginal bleeding, weakness, fever, dyspnea, syncope, headache, dizziness, GI bleed, back pain, seizure, CVA, palpatations, mental health, musculoskeletal)? @ -Contact dermatitis, dermatitis, urticaria, allergic reaction, angioedema, this list is not all inclusive EKG interpreted by me (3pts min.). @ -None X-rays interpreted by me (1pt min.). @ -None done CT interpreted by me (1pt min.). @ -None done U/S interpreted by me (1pt. min.). @ -None done What testing was considered but not performed or refused? (CT, X-rays, U/S, labs)? Why? @ -None What meds were considered but not given or refused? Why? @ -None Did you discuss the management of the patient with other professionals (professionals i.e. , PA, CERTIFIED ETHICAL HACKER, lab, RT, psych nurse, social problems specialist, casino assistant manager, teacher, foreign service officer, case folder)? Give summary @ -No Was smoking cessation discussed for >3mins.? @ -No Was critical care preformed (if so, how long)? @ -No Were there social determinants of health that impacted care today? How? (H omelessness, low income, unemployed, alcoholism, drug addiction, transportation, low edu. Level, literacy, decrease access to med. care, correction, rehab)? @ -No Was there de-escalation of care discussed even if they declined (Discuss DNR or withdrawal of care, Hospice)? DNR status @ -No What co-morbidities impacted this encounter? (DM, HTN, Smoking, COPD, CAD, Cancer, CVA, ARF, Chemo, Hep., AIDS, mental health diagnosis, sleep apnea, morbid obesity)? @ -None Was patient admitted / discharged? Hospital course, mention meds given and route, prescriptions, significant lab abnormalities, going to OR and other pertinent info. @ -discharged. 68-year-old female with rash. On evaluation patient noted to have widespread urticarial rash that is characterized by wheals that is pruritic in nature. Patient's skin is also mildly warm to the touch. Vitals are stable and patient is in no signs of respiratory distress. There are no signs of lip swelling, tongue swelling, eyelid swelling. Patient is provided with steroid and antihistamine. Evaluation patient's urticaria has subsided however still present. Patient is sent a prescription for Atarax and short steroid burst. Discussed with patient that she should not take Atarax in conjunction with Benadryl. Additionally, recommend that she discontinue use of topical steroid cream. All questions have been answered at bedside strict return parameters lilian with the patient she is verbalized understanding. Case discussed with Dr. Steele Undiagnosed new problem with uncertain prognosis? @ -No Drug Therapy requiring intensive monitoring for toxicity (Heparin, Nitro, Insulin, Cardizem)? @ -No Were any procedures done? @ -No Diagnosis/symptom? @ -Urticaria, rash Acute, or Chronic, or Acute on Chronic? @ -acute Uncomplicated (without systemic symptoms) or Complicated (systemic symptoms)? @ -uncomplicated Side effects of treatment? @ -No Exacerbation, Progression, or Severe Exacerbation? @ -No Poses a threat to life or bodily function? How? (Chest pain, USA, SD, pneumonia, PE, COPD, DKA, ARF, appy, cholecystitis, CVA, Diverticulitis, Homicidal, Suicidal, threat to staff... and all critical care pts) @ -No Disposition Clinical Impression: Urticaria Disposition: HOME SELF-CARE Condition: Good Instructions (If sedation given, give patient instructions): Urticaria (ED) Additional Instructions: Please return to the Emergency Department if symptoms worsen or any other concerns. Recommend that you discontinue topical steroid and oral steroid prescribed by outside facility. Please take the prednisone starting on 01/09/2024 full course. Take prescribed Atarax up to 3 times per day. It is recommended that you do not take Atarax concurrently with Benadryl as this may increase side effects. Continue to take Zyrtec as prescribed, once a day. Prescriptions: hydrOXYzine HCL [Atarax] 25 mg PO TID PRN #15 tab PRN Reason: Allergic Reaction predniSONE 50 mg PO DAILY #4 tab Is patient prescribed a controlled substance at d/c from ED?: No Referrals: Itz Saldana MD [Primary Care Provider] - 1-2 days Time of Disposition: 03:30
[2024-01-08] MEDS: methylPREDNISolone SOD SUCCI 125 MG/2 ML VIAL IM ONE (02:52)
[2024-01-08] MEDS: diphenhydrAMINE 50 MG/ML 1 ML VIAL IM STA (02:52)
[2024-01-08] MEDS: hydrOXYzine HCL 25 MG TAB PO STA (02:55)
[2024-01-08 03:51] VITALS: BP 128/80; PULSE 72; RESP 18; TEMP 98.3
== END 2024-01-08 03:50 | disposition home or self-care (01) ==
LOC: EC 02:07
DX: L50.0 Allergic urticaria (principal); Z88.7 Allergy status to serum and vaccine; Z91.013 Allergy to seafood; Z87.891 Personal history of nicotine dependence
CPT/HCPCS: 99283; 96372 ×2; J1200; J2919

== ENCOUNTER → 2024-02-01 | Outpatient (CLI) | payer MEDICARE, OTHER ==
--- NOTE | 2024-02-01 11:41 | XR ---
EXAMINATION TYPE: XR shoulder complete RT DATE OF EXAM: 02/01/2024 9:02 AM COMPARISON: 10/11/2014 CLINICAL INDICATION: Female, 68 years old with history of M25.511 R shoulder pain, , FINDINGS: AC joint appears congruent and intact. Subacromial space is preserved. 5 mm density adjacent to the g reater tuberosity could represent a focus of calcification versus loose body. Underlying moderate deg enerative change of the glenohumeral joint with joint space narrowing and inferior humeral head spurr ing. No acute fracture, subluxation, dislocation seen. IMPRESSION: 1. Underlying moderate glenohumeral joint OA. 2. A 5 mm density adjacent to the greater tuberosity could reflect soft tissue calcification in the s etting of calcific tendinitis versus a loose body relating to the patient's arthritis. [facility], , 02/01/2024 11:39 AM
== END | disposition home or self-care (01) ==
LOC: RADXRMAIN 08:39
PROVIDERS: ATTEND Internal Medicine
DX: M19.011 Primary osteoarthritis, right shoulder (principal)

== ENCOUNTER 2024-02-10 02:04 | Emergency (ER) | payer MEDICARE, OTHER ==
[2024-02-10 02:12] VITALS: TEMP 98.1
[2024-02-10] MEDS: KETOROLAC 15 MG/ML 1 ML VIAL IVP STA (03:10)
[2024-02-10 03:27] LABS: ALT 20 U/L (4-34); AST 27 U/L (14-36); African American GFR (CKD) >90 (>60 ml/min/1.73 sqM); Albumin 4.2 g/dL (3.5-5.0); Alkaline Phosphatase 53 U/L (38-126); Anion Gap 5 mmol/L; Blood Urea Nitrogen 19 mg/dL (7-17); Carbon Dioxide 28 mmol/L (22-30); Chloride 105 mmol/L (98-107); Glucose 85 mg/dL (74-99); Non-African American GFR(CKD) 78 (>60 ml/min/1.73 sqM); Potassium 4.1 mmol/L (3.5-5.1); Sodium 138 mmol/L (137-145); Total Bilirubin 0.6 mg/dL (0.2-1.3)
[2024-02-10 03:30] LABS: Basophils # (A) 0.1 k/uL (0-0.2); Basophils % (A) 1 %; Eosinophils # (A) 0.2 k/uL (0-0.7); Eosinophils % (A) 3 %; HCT 36.4 % (34.0-46.0); HGB 11.6 gm/dL (11.4-16.0); Lymphocytes # (A) 2.6 k/uL (1.0-4.8); Lymphocytes % (A) 39 %; MCH 29.1 pg (25.0-35.0); MCHC 31.9 g/dL (31.0-37.0); MCV 91.4 fL (80.0-100.0); Monocytes # (A) 0.4 k/uL (0-1.0); Monocytes % (A) 6 %; Neutrophils # (A) 3.3 k/uL (1.3-7.7); Neutrophils % (A) 49 %; Platelet Count 281 k/uL (150-450); RBC 3.98 m/uL (3.80-5.40); RDW 14.3 % (11.5-15.5); WBC 6.7 k/uL (3.8-10.6)
[2024-02-10] MEDS: methocarbamoL 750 MG TAB PO STA (03:37)
[2024-02-10 04:28] LABS: Appearance,Urine Clear (Clear); Bilirubin,Urine Negative (Negative); Blood,Urine Negative (Negative); Color,Urine Colorless; Glucose,Urine (UA) Negative (Negative); Ketones,Urine Negative (Negative); Leukocyte Esterase,Urine Negative (Negative); Nitrite,Urine Negative (Negative); PH, Urine 6.5 (5.0-8.0); Protein,Urine Negative (Negative); Specific Gravity,Urine 1.012 (1.001-1.035); Urobilinogen,Urine <2.0 mg/dL (<2.0)
--- NOTE | 2024-02-10 04:43 | XR ---
EXAM: XR Lumbosacral Spine, 2 or 3 Views CLINICAL HISTORY: ITS.REASON XR Reason: back pain TECHNIQUE: Frontal and lateral views of the lumbar spine and sacrum. COMPARISON: No relevant prior studies available. FINDINGS: Vertebrae: No acute fracture. Levoscoliosis. Disc spaces: Multilevel degenerative disc disease. Soft tissues: Unremarkable. IMPRESSION: No acute findings. Levoscoliosis. Degenerative changes.
--- NOTE | 2024-02-10 05:23 | ED ---
General Adult HPI - General Chief complaint: Back Pain/Injury Stated complaint: Back pain Time Seen by Provider: 02/10/24 02:10 Source: patient Mode of arrival: ambulatory Limitations: no limitations - History of Present Illness Initial comments: 68-year-old female who presents emergency department with lower back pain. States that her pain has been going on since earlier this afternoon. She describes it as an aching sensation in her lower back. She was concerned that it was her kidneys and therefore she states she was drinking a bunch of water. She denies any urinary complaints to include dysuria, hematuria or difficulty voiding. No black or bloody stools. No constipation or diarrhea. No vaginal bleeding or discharge. The pain is worse with movement and better with rest. She did not take anything for pain before coming in. No saddle anesthesia. No bowel or bladder incontinence. No other alleviating, precipitating modifying factors - Related Data Home Medications Medication Instructions Recorded Confirmed HYDROcodone/APAP 10-325MG [[place] 1 tab PO BID PRN 02/16/14 06/23/23 10] Montelukast [Singulair] 10 mg PO HS 02/16/14 06/23/23 amLODIPine [Norvasc] 10 mg PO HS 04/06/19 06/23/23 Albuterol Inhaler [Ventolin Hfa 1 puff INHALATION DIRECTED 07/27/19 06/23/23 Inhaler] Multivitamins, Thera [Multivitamin 1 tab PO DAILY 07/27/19 06/23/23 (formulary)] Omeprazole 20 mg PO DAILY PRN 07/27/19 06/23/23 Atorvastatin [Lipitor] 20 mg PO HS 08/23/19 06/23/23 Fluticasone Nasal [place] [Flonase 1 spray EA NOSTRIL DAILY PRN 08/23/19 06/23/23 Nasal [place]] Aspirin [Children's Aspirin] 81 mg PO DAILY 05/07/22 06/23/23 Cholecalciferol [Vitamin D3 (25 25 mcg PO DAILY 05/06/23 06/23/23 Mcg = 1000 Iu)] Ipratropium-Albuterol Nebulize 3 ml INHALATION QID PRN 05/06/23 06/23/23 [Duoneb 0.5 mg-3 mg/3 ml Soln] Vitamin B Complex 1 each PO DAILY 05/06/23 06/23/23 lisinopriL [Zestril] 20 mg PO DAILY 05/06/23 06/23/23 Furosemide [Lasix] 20 mg PO DAILY 06/22/23 06/23/23 Ibuprofen [Motrin Ib] 400 - 600 mg PO DIRECTED PRN 06/22/23 06/23/23 Previous Rx's Medication Instructions Recorded Aspirin 325 mg PO BID #60 tab 06/23/23 Ondansetron [Zofran] 4 mg PO Q6HR PRN #30 tab 06/23/23 Sennosides-Docusate Sodium 1 tab PO BID PRN #60 tablet 06/23/23 [Senokot-S] oxyCODONE HCL/ACETAMINOPHEN 1 tab PO Q4-6H PRN #30 tab 06/27/23 [Percocet 5-325 mg] hydrOXYzine HCL [Atarax] 25 mg PO TID PRN #15 tab 01/08/24 predniSONE 50 mg PO DAILY #4 tab 01/08/24 HYDROcodone/APAP 5-325MG [[place] 1 tab PO Q6HR PRN 3 Days #12 tab 02/10/24 5-325] Lidocaine 5% Patch [Lidoderm] 1 patch TOPICAL DAILY #30 patch 02/10/24 Allergies Allergy/AdvReac Type Severity Reaction Status Date / Time Influenza Virus Vaccines AdvReac Nausea & Verified 02/10/24 02:06 Vomiting & Diarrhea SWAI FISH Allergy Severe Anaphylaxis Uncoded 02/10/24 02:06 Review of Systems ROS Statement: Those systems with pertinent positive or pertinent negative responses have been documented in the HPI. ROS Other: All systems not noted in ROS Statement are negative. Past Medical History Past Medical History: COPD, CVA/TIA, GERD/Reflux, Hyperlipidemia, Hypertension, Myocardial Infarction ([place]), Pneumonia, Rheumatoid Arthritis ([place]), Sleep Apnea/CPAP/BIPAP Additional Past Medical History / Comment(s): TIA weaker on the left side, DDD, ARTHRITIS WITH KNEE PAIN, USES CANE, carotid aneurysm followed conservatively. 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 Past LEG BREAKER history: GC, Chlamydia and Trichomonas years ago. does not wear cpap. swelling to bilateral lower legs Last Myocardial Infarction Date:: 2009 History of Any Multi-Drug Resistant Organisms: None Reported Past Surgical History: Adenoidectomy, Tonsillectomy Additional Past Surgical History / Comment(s): Adnexal cystectomy 2014., colonoscopy , CATARACTS. rt rotator cuff, Right knee replacement Past Anesthesia/Blood Transfusion Reactions: No Reported Reaction Past Psychological History: Anxiety, Depression Smoking Status: Former smoker Past Alcohol Use History: Occasional Past Drug Use History: Cocaine - Past Family History Mother Family Medical History: Hypertension, Myocardial Infarction ([place]), Renal Disease Additional Family Medical History / Comment(s): Uterine fibroids. Renal failure. enlarged heart Brother(s) Family Medical History: Diabetes Mellitus Father Family Medical History: COPD Additional Family Medical History / Comment(s): Colon cancer RUNS IN FAMILY-NOT SURE IF HE ACTUALLY HAD IT OR NOT Sister(s) Family Medical History: Renal Disease Additional Family Medical History / Comment(s): Renal failure. General Exam Limitations: no limitations General appearance: alert, in no apparent distress Head exam: Present: atraumatic, normocephalic, normal inspection Eye exam: Present: normal appearance, PERRL, EOMI. Absent: scleral icterus, conjunctival injection, periorbital swelling ENT exam: Present: normal exam, mucous membranes moist Neck exam: Present: normal inspection. Absent: tenderness, meningismus, lymphadenopathy Respiratory exam: Present: normal lung sounds bilaterally. Absent: respiratory distress, wheezes, rales, rhonchi, stridor Cardiovascular Exam: Present: regular rate, normal rhythm, normal heart sounds. Absent: systolic murmur, diastolic murmur, rubs, gallop, clicks GI/Abdominal exam: Present: soft, normal bowel sounds. Absent: distended, tenderness, guarding, rebound, rigid Extremities exam: Present: normal inspection, full ROM, normal capillary refill. Absent: tenderness, pedal edema, joint swelling, calf tenderness Back exam: Present: normal inspection, paraspinal tenderness (In the lumbar reg ion bilaterally) Neurological exam: Present: alert, oriented X3, CN II-XII intact Psychiatric exam: Present: normal affect, normal mood Skin exam: Present: warm, dry, intact, normal color. Absent: rash Course Vital Signs 02/10/24 02/10/24 02:06 05:37 Temperature 98.1 F Pulse Rate 62 56 L Respiratory 21 18 Rate Blood Pressure 119/68 132/64 O2 Sat by Pulse 96 99 Oximetry Medical Decision Making - Medical Decision Making Was pt. sent in by a medical professional or institution ([facility], [employer], urgent c are, hospital, or prison...) When possible be specific @ -No Did you speak to anyone other than the patient for history (EMS, parent, family, police, friend...)? What history was obtained from this source @ -No Did you review nursing and triage notes (agree or disagree)? Why? @ -I reviewed and agree with nursing and triage notes Were old charts reviewed (outside hosp., previous admission, EMS record, old EKG, old radiological studies, urgent care reports/EKG's, prison records)? Report findings @ -No old charts were reviewed Differential Diagnosis (chest pain, altered mental status, abdominal pain women, abdominal pain men, vaginal bleeding, weakness, fever, dyspnea, syncope, headache, dizziness, GI bleed, back pain, seizure, CVA, palpatations, mental health, musculoskeletal)? @ -Differential Back Pain: Strain, zoster, cauda equina syndrome, epidural abscess, vertebral osteomyelitis, discitis, fracture, subluxation, disc herniation, DJD, spinal stenosis, dissection, AAA, pancreatitis, peptic ulcer disease, pyelonephritis, kidney stone, this is not meant to be an all-inclusive list. EKG interpreted by me (3pts min.). @ -Not done X-rays interpreted by me (1pt min.). @ -Yes and demonstrates no acute process CT interpreted by me (1pt min.). @ -None done U/S interpreted by me (1pt. min.). @ -None done What testing was considered but not performed or refused? (CT, X-rays, U/S, labs)? Why? @ -None What meds were considered but not given or refused? Why? @ -None Did you discuss the management of the patient with other professionals (professionals i.e. [facility], [employer], lab, RT, psych nurse, geriatric social work professor, casting house worker, teacher, community service officer, block and case maker)? Give summary @ -No Was smoking cessation discussed for >3mins.? @ -No Was critical care preformed (if so, how long)? @ -No Were there social determinants of health that impacted care today? How? (Homel essness, low income, unemployed, alcoholism, drug addiction, transportation, low edu. Level, literacy, decrease access to med. care, [facility], rehab)? @ -No Was there de-escalation of care discussed even if they declined (Discuss DNR or withdrawal of care, Hospice)? DNR status @ -No What co-morbidities impacted this encounter? (DM, HTN, Smoking, COPD, CAD, Cancer, CVA, ARF, Chemo, Hep., AIDS, mental health diagnosis, sleep apnea, morbid obesity)? @ -None Was patient admitted / discharged? Hospital course, mention meds given and route, prescriptions, significant lab abnormalities, going to OR and other pertinent info. @ -Upon arrival patient seen and evaluated in room 6. Thorough history and physical exam was performed. IV access was established. Laboratory studies were conducted. X-ray was performed. Patient was given Toradol and Robaxin. She is reevaluated and continues to have pain. She was given a dose of morphine and a Lidoderm patch. She is reevaluated and states that her pain is improved. I did talk to her about treatment options. Patient wants to take a pain medication and states that she did tolerate [place] before. I did call her in a short prescription to the pharmacy. Patient will be discharged home. Instructed follow-up with her primary care doctor within 2 to 4 days and return for any new or worsening symptoms. Patient agreeable to plan was discharged h ome in stable condition Undiagnosed new problem with uncertain prognosis? @ -Yes Drug Therapy requiring intensive monitoring for toxicity (Heparin, Nitro, Insulin, Cardizem)? @ -No Were any procedures done? @ -No Diagnosis/symptom? @ -Acute low back pain Acute, or Chronic, or Acute on Chronic? @ -Acute Uncomplicated (without systemic symptoms) or Complicated (systemic symptoms)? @ -Complicated Side effects of treatment? @ -No Exacerbation, Progression, or Severe Exacerbation? @ -No Poses a threat to life or bodily function? How? (Chest pain, [place], [place], pneumonia, PE, COPD, DKA, ARF, appy, cholecystitis, CVA, Diverticulitis, Homicidal, Suicidal, threat to staff... and all critical care pts) @ -No - Lab Data Result diagrams: 02/10/24 02:43 02/10/24 02:43 Lab Results 02/10/24 02/10/24 02/10/24 Range/Units 02:43 02:43 04:10 WBC 6.7 (3.8-10.6) k/uL RBC 3.98 (3.80-5.40) m/uL Hgb 11.6 (11.4-16.0) gm/dL Hct 36.4 (34.0-46.0) % MCV 91.4 (80.0-100.0) fL MCH 29.1 (25.0-35.0) pg MCHC 31.9 (31.0-37.0) g/dL RDW 14.3 (11.5-15.5) % Plt Count 281 (150-450) k/uL MPV 10.0 Neutrophils % 49 % Lymphocytes % 39 % Monocytes % 6 % Eosinophils % 3 % Basophils % 1 % Neutrophils # 3.3 (1.3-7.7) k/uL Lymphocytes # 2.6 (1.0-4.8) k/uL Monocytes # 0.4 (0-1.0) k/uL Eosinophils # 0.2 (0-0.7) k/uL Basophils # 0.1 (0-0.2) k/uL Sodium 138 (137-145) mmol/L Potassium 4.1 (3.5-5.1) mmol/L Chloride 105 (98-107) mmol/L Carbon Dioxide 28 (22-30) mmol/L Anion Gap 5 mmol/L BUN 19 H (7-17) mg/dL Creatinine 0.79 (0.52-1.04) mg/dL Est GFR (CKD-EPI)AfAm >90 (>60 ml/min/1.73 sqM) Est GFR (CKD-EPI)NonAf 78 (>60 ml/min/1.73 sqM) Glucose 85 (74-99) mg/dL Calcium 9.0 (8.4-10.2) mg/dL Total Bilirubin 0.6 (0.2-1.3) mg/dL AST 27 (14-36) U/L ALT 20 (4-34) U/L Alkaline Phosphatase 53 (38-126) U/L Total Protein 7.0 (6.3-8.2) g/dL Albumin 4.2 (3.5-5.0) g/dL Urine Color Colorless Urine Appearance Clear (Clear) Urine pH 6.5 (5.0-8.0) Ur Specific [place] 1.012 (1.001-1.035) Urine Protein Negative (Negative) Urine Glucose (UA) Negative (Negative) Urine Ketones Negative (Negative) Urine Blood Negative (Negative) Urine Nitrite Negative (Negative) Urine Bilirubin Negative (Negative) Urine Urobilinogen <2.0 (<2.0) mg/dL Ur Leukocyte Esterase Negative (Negative) Disposition Clinical Impression: Back pain Disposition: HOME SELF-CARE Condition: Stable Instructions (If sedation given, give patient instructions): Acute Low Back Pain (ED) Additional Instructions: Your blood work and x-ray in the emergency department were negative for any acute findings at this time. You may need further imaging to include an MRI which needs to be ordered by your primary care doctor. I have prescribed you a pain medication and Lidoderm patches. Use them as instructed. Follow-up with your primary care doctor within 2 to 4 days. Return for any new or worsening symptoms Prescriptions: Lidocaine 5% Patch [Lidoderm] 1 patch TOPICAL DAILY #30 patch HYDROcodone/APAP 5-325MG [[place] 5-325] 1 tab PO Q6HR PRN 3 Days #12 tab PRN Reason: Severe Breakthrough Pain Is patient prescribed a controlled substance at d/c from ED?: Yes When asked, does pt state using other controlled substances?: Yes If prescribed controlled substance>3 days was MAPS reviewed?: Prescribed <3 Days If opioid is for acute pain is fill amount 7 days or less?: Yes Referrals: Itz Saldana MD [Primary Care Provider] - 1-2 days Time of Disposition: 05:22
[2024-02-10 05:38] VITALS: BP 132/64; PULSE 56; RESP 18
[2024-02-10] MEDS: LIDOCAINE 4% PATCH TOPICAL ONE (05:39)
[2024-02-10] MEDS: MORPHINE SULFATE 4 MG/ML SYRINGE IVP STA (05:39)
== END 2024-02-10 05:57 | disposition home or self-care (01) ==
LOC: EC 02:04
DX: M54.50 Low back pain, unspecified (principal); Z88.7 Allergy status to serum and vaccine; Z91.013 Allergy to seafood; Z87.891 Personal history of nicotine dependence; Z86.73 Personal history of transient ischemic attack (TIA), and cerebral infarction without residual deficits
CPT/HCPCS: 36415; 80053; 85025; 81003; 72100; 99284; 96374; 96375; J2270; J1885

== ENCOUNTER 2024-06-03 10:09 | Day surgery (SDC) | payer MEDICARE, OTHER ==
[2024-06-02 12:19] VITALS: BMI 36.1
[~2024-06-03 10:09] MED LIST changes: +LACTATED RINGERS 1,000 ML IV SCH; -TRANEXAMIC 1,000 MG/100ML-NACL 1,000 MG in SALINE 1 100ML.BAG IVPB PRN
[2024-06-03 11:18] VITALS: TEMP 97.9
[2024-06-03] MEDS: IV FLUID CONTINUATION 500 ML IV ONE (11:38)
[2024-06-03] MEDS ORDERED: PROPOFOL 10 MG/ML 20 ML VIAL IV ONE (12:23)
--- NOTE | 2024-06-03 12:37 | P.PCN ---
Date of Procedure: 06/03/24 Procedure(s) Performed: BRIEF HISTORY: Patient is a 68-year-old [place] female scheduled for an elective colonoscopy as a part of screening for colon cancer/positive Cologuard PROCEDURE PERFORMED: Colonoscopy with biopsy. PREOPERATIVE DIAGNOSIS: Screening for colon cancer/positive Cologuard. IV sedation per Anesthesia. PROCEDURE: After informed consent was obtained, the patient, was brought into the endoscopy unit. IV sedation was administered by Anesthesia under continuous monitoring. Digital rectal examination was normal. Initially the Olympus CF-160 flexible video colonoscope was then inserted in the rectum, gradually advanced into the cecum without any difficulty. Careful examination was performed as the scope was gradually being withdrawn. Ileocecal valve and the appendiceal orifice were visualized and appeared normal. Prep was excellent. Mucosa of the cecum appeared normal. Descending colon there was a 3 mm polyp removed by cold biopsy. Rest of the, ascending colon, transverse colon, descending colon, sigmoid colon, and rectum appeared normal. Retroflexion was performed in the rectum and grade 2 internal hemorrhoids were seen. The patient tolerated the procedure well. IMPRESSION: 3 mm ascending colon polyp status post cold biopsy Grade 2 internal hemorrhoids RECOMMENDATIONS: Findings of this examination were discussed with the patient as well as her family. She was advised to follow-up with the biopsy results. If the biopsy reveals adenoma she can have repeat colonoscopy in 5 years..
[2024-06-03 13:01] VITALS: BP 136/86; PULSE 55; RESP 20
== END 2024-06-03 13:28 | disposition home or self-care (01) ==
LOC: ORWHC2ENDO 10:09
PROVIDERS: ATTEND Internal Medicine Gastroenterology
DX: Z12.11 Encounter for screening for malignant neoplasm of colon (principal); K64.1 Second degree hemorrhoids; D12.2 Benign neoplasm of ascending colon; I25.10 Atherosclerotic heart disease of native coronary artery without angina pectoris; J44.9 Chronic obstructive pulmonary disease, unspecified; I67.9 Cerebrovascular disease, unspecified; I10 Essential (primary) hypertension; E78.5 Hyperlipidemia, unspecified; G47.33 Obstructive sleep apnea (adult) (pediatric); Z89.231 Acquired absence of right shoulder; Z89.521 Acquired absence of right knee; Z88.7 Allergy status to serum and vaccine; Z79.02 Long term (current) use of antithrombotics/antiplatelets; Z79.899 Other long term (current) drug therapy
CPT/HCPCS: 45380; J2704; 88305

== ENCOUNTER → 2024-07-01 | Outpatient (CLI) | payer MEDICARE, OTHER | END | disposition home or self-care (01) | LOC: LABWHC1 08:53 | PROVIDERS: ATTEND Physician Assistant | DX: M25.561 Pain in right knee (principal) | CPT/HCPCS: 36415; 85379; 85652; 86140 ==

== ENCOUNTER 2024-10-06 20:29 | Emergency (ER) | payer MEDICARE, OTHER ==
[2024-10-06 21:10] LABS: Basophils # (A) 0.07 10*3/uL (0.00-0.10); Basophils % (A) 1.0 %; Eosinophils # (A) 0.20 10*3/uL (0.04-0.35); Eosinophils % (A) 2.9 %; HCT 34.8 % (37.2-46.3); HGB 11.4 g/dL (12.0-15.0); Lymphocytes # (A) 3.30 10*3/uL (0.90-5.00); Lymphocytes % (A) 47.3 %; MCH 30.1 pg (27.0-32.0); MCHC 32.8 g/dL (32.0-37.0); MCV 91.8 fL (80.0-97.0); Monocytes # (A) 0.59 10*3/uL (0.20-1.00); Monocytes % (A) 8.5 %; Neutrophils # (A) 2.81 10*3/uL (1.80-7.70); Neutrophils % (A) 40.2 %; Platelet Count 225 10*3/uL (140-440); RBC 3.79 10*6/uL (4.10-5.20); RDW 14.6 % (11.5-14.5); WBC 6.98 10*3/uL (4.50-10.00)
[2024-10-06] MEDS: MORPHINE SULFATE 4 MG/ML SYRINGE IV STA (21:18)
[2024-10-06 21:21] LABS: Bilirubin,Urine Negative (Negative); Blood,Urine Trace (Negative); Color,Urine Colorless; Glucose,Urine (UA) Negative (Negative); Ketones,Urine Negative (Negative); Leukocyte Esterase,Urine Large (Negative); Mucus,Urine Rare /hpf; Nitrite,Urine Negative (Negative); PH, Urine 6.5 (5.0-8.0); Protein,Urine Negative (Negative); RBC,Urine 1 /hpf (0-5); Specific Gravity,Urine 1.007 (1.001-1.035); Squamous Epithelial Cell,Urine 3 /hpf (0-4); Urobilinogen,Urine <2.0 mg/dL (<2.0); WBC,Urine 17 /hpf (0-5)
--- NOTE | 2024-10-06 21:25 | ED ---
Abdominal Pain HPI - General Chief Complaint: Abdominal Pain Stated Complaint: Right flank pain and swelling Time Seen by Provider: 10/06/24 20:57 Source: patient Mode of arrival: ambulatory Limitations: no limitations - History of Present Illness Initial Comments: This patient is a 68-year-old woman who presents evaluation of right lower quadrant abdominal pain. The patient states that she had noted the pain this morning. She thought that it was related to the way that she had slept. Initially the pain was mild. It has gotten progressively worse over the course of the day and she now rates it moderate to severe. She notes that the pain is worse with movement or with laughing. The pain does not have any relieving factors. She characterizes it as a sharp sensation. No accompanying factors. No nausea or vomiting. No change in urination or bowel movements. She has not noted fever or chills. MD Complaint: abdominal pain Onset/Timin -: hour(s) Location: RLQ Migration to: no migration Severity: moderate Quality: sharp Consistency: constant Improves With: nothing Worsens With: movement, other (Laughing) Associated Symptoms: denies other symptoms - Related Data Home Medications Medication Instructions Recorded Confirmed Montelukast [Singulair] 10 mg PO HS 02/16/14 06/02/24 amLODIPine [Norvasc] 10 mg PO HS 04/06/19 06/02/24 Albuterol Inhaler [Ventolin Hfa 1 puff INHALATION DIRECTED 07/27/19 06/02/24 Inhaler] Multivitamins, Thera [Multivitamin 1 tab PO DAILY 07/27/19 06/02/24 (formulary)] Omeprazole 20 mg PO DAILY PRN 07/27/19 06/03/24 Atorvastatin [Lipitor] 20 mg PO HS 08/23/19 06/02/24 Fluticasone Nasal Boring [Flonase 1 spray EA NOSTRIL DAILY PRN 08/23/19 06/02/24 Nasal Boring] Cholecalciferol [Vitamin D3 (25 25 mcg PO DAILY 05/06/23 06/02/24 Mcg = 1000 Iu)] Ipratropium-Albuterol Nebulize 3 ml INHALATION QID PRN 05/06/23 06/02/24 [Duoneb 0.5 mg-3 mg/3 ml Soln] Vitamin B Complex 1 each PO DAILY 05/06/23 06/03/24 lisinopriL [Zestril] 20 mg PO DAILY 05/06/23 06/02/24 Furosemide [Lasix] 20 mg PO DAILY 06/22/23 06/02/24 Ibuprofen [Motrin Ib] 400 - 600 mg PO DIRECTED PRN 06/22/23 06/02/24 Aspirin 325 mg PO DAILY 06/02/24 06/02/24 Previous Rx's Medication Instructions Recorded Ondansetron [Zofran] 4 mg PO Q6HR PRN #30 tab 06/23/23 Sennosides-Docusate Sodium 1 tab PO BID PRN #60 tablet 06/23/23 [Senokot-S] oxyCODONE HCL/ACETAMINOPHEN 1 tab PO Q4-6H PRN #30 tab 06/27/23 [Percocet 5-325 mg] Lidocaine 5% Patch [Lidoderm] 1 patch TOPICAL DAILY #30 patch 02/10/24 Sulfamethox-Tmp 800-160Mg [Bactrim 1 each PO Q12HR #6 tab 10/06/24 Ds] Allergies Allergy/AdvReac Type Severity Reaction Status Date / Time Influenza Virus Vaccines AdvReac Nausea & Verified 06/02/24 11:52 Vomiting & Diarrhea SWAI FISH Allergy Severe Anaphylaxis Uncoded 06/02/24 11:52 Review of Systems ROS Statement: Those systems with pertinent positive or pertinent negative responses have been documented in the HPI. ROS Other: All systems not noted in ROS Statement are negative. Constitutional: Denies: fever, chills, weakness Respiratory: Reports: cough (Mild cough). Denies: dyspnea Cardiovascular: Denies: chest pain, palpitations, orthopnea, edema Gastrointestinal: Reports: abdominal pain. Denies: nausea, vomiting, diarrhea, constipation, melena, hematochezia Genitourinary: Denies: dysuria, hematuria Musculoskeletal: Denies: back pain Skin: Denies: rash Neurological: Denies: headache, weakness Past Medical History Past Medical History: COPD, CVA/TIA, GERD/Reflux, Hyperlipidemia, Hypertension, Myocardial Infarction (AL), Pneumonia, Rheumatoid Arthritis (RA), Sleep Apnea/CPAP/BIPAP Additional Past Medical History / Comment(s): TIA weaker on the left side, DDD, ARTHRITIS WITH KNEE PAIN, USES CANE, carotid aneurysm followed conservatively. 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 adjusting to her CPAP, swelling to bilateral lower legs. Last Myocardial Infarction Date:: 2009 History of Any Multi-Drug Resistant Organisms: None Reported Past Surgical History: Adenoidectomy, Tonsillectomy Additional Past Surgical History / Comment(s): Adnexal cystectomy 2014., colonoscopy , CATARACTS. rt rotator cuff, Right knee replacement Past Anesthesia/Blood Transfusion Reactions: No Reported Reaction Past Psychological History: Anxiety, Depression Smoking Status: Former smoker - Past Family History Mother Family Medical History: Hypertension, Myocardial Infarction (AL), Renal Disease Additional Family Medical History / Comment(s): Uterine fibroids. Renal failure. enlarged heart Brother(s) Family Medical History: Diabetes Mellitus Father Family Medical History: COPD Additional Family Medical History / Comment(s): Colon cancer RUNS IN FAMILY-NOT SURE IF HE ACTUALLY HAD IT OR NOT Sister(s) Family Medical History: Renal Disease Additional Family Medical History / Comment(s): Renal failure. General Exam Limitations: no limitations General appearance: alert, in no apparent distress Head exam: Present: atraumatic, normocephalic Eye exam: Present: normal appearance. Absent: scleral icterus, conjunctival injection ENT exam: Present: normal oropharynx Neck exam: Present: normal inspection Respiratory exam: Present: normal lung sounds bilaterally. Absent: respiratory distress, wheezes, rales, rhonchi, stridor, accessory muscle use Cardiovascular Exam: Present: regular rate, normal rhythm, normal heart sounds. Absent: systolic murmur, diastolic murmur, rubs, gallop GI/Abdominal exam: Present: soft, tenderness. Absent: distended, guarding, rebound, rigid, organomegaly, mass, pulsatile mass, hernia Extremities exam: Present: normal inspection, normal capillary refill. Absent: pedal edema, calf tenderness Back exam: Present: normal inspection. Absent: CVA tenderness (R), CVA tenderness (L) Neurological exam: Present: alert Skin exam: Present: warm, dry, intact, normal color. Absent: rash Course Vital Signs 10/06/24 10/06/24 10/06/24 20:42 21:21 22:11 Temperature 98.0 F Pulse Rate 60 63 55 L Respiratory 16 17 16 Rate Blood Pressure 142/79 132/69 O2 Sat by Pulse 98 100 98 Oximetry 10/06/24 23:10 Temperature 98.1 F Pulse Rate 76 Respiratory 18 Rate Blood Pressure 146/69 O2 Sat by Pulse 97 Oximetry Medical Decision Making - Medical Decision Making The patient had CT scan of the abdomen and pelvis, which I interpreted as negative for free air, obstruction, or other acute surgical condition. Was pt. sent in by a medical professional or institution ([facility] Lindsay, FREIGHT BRAKE OPERATOR, urgent care, hospital, or snf...) When possible be specific @ -[No] Did you speak to anyone other than the patient for history (EMS, parent, family, police, friend...)? What history was obtained from this source @ -[No] Did you review nursing and triage notes (agree or disagree)? Why? @ -[I reviewed and agree with nursing and triage notes] Were old charts reviewed (outside hosp., previous admission, EMS record, old EKG, old radiological studies, urgent care reports/EKG's, snf records)? Report findings @ -[No old charts were reviewed] Differential Diagnosis (chest pain, altered mental status, abdominal pain women, abdominal pain men, vaginal bleeding, weakness, fever, dyspnea, syncope, headache, dizziness, GI bleed, back pain, seizure, CVA, palpatations, mental health, musculoskeletal)? @ -[Differential Abdominal Pain Women: Appendicitis, Cholecystitis, diverticulosis, ischemic bowel, pancreatitis, hepa titis, UTI, gastroenteritis, AAA, incarcerated hernia, bowel obstruction, constipation, inflammatory bowel, hepatitis, peptic ulcer disease, splenic infarction, perforated viscus, vulvitis, ovarian torsion, PID, kidney stone, placenta abruption, this is not meant to be an all-inclusive list EKG interpreted by me (3pts min.). @ -[As above] X-rays interpreted by me (1pt min.). @ -[None done] CT interpreted by me (1pt min.). @ -I interpreted as above U/S interpreted by me (1pt. min.). @ -[None done] What testing was considered but not performed or refused? (CT, X-rays, U/S, labs)? Why? @ -[None] What meds were considered but not given or refused? Why? @ -[None] Did you discuss the management of the patient with other professionals (professionals i.e. Dr., PA, FREIGHT BRAKE OPERATOR, lab, RT, psych nurse, bilingual social worker, accounting policy consultant, teacher, operations officer, top case assembler)? Give summary @ -[No] Was smoking cessation discussed for >3mins.? @ -[No] Was critical care preformed (if so, how long)? @ -[No] Were there social determinants of health that impacted care today? How? (Homelessness, low income, unemployed, alcoholism, drug addiction, transportation, low edu. Level, literacy, decrease access to med. care, group home, rehab)? @ -[No] Was there de-escalation of care discussed even if they declined (Discuss DNR or withdrawal of care, Hospice)? DNR status @ -[No] What co-morbidities impacted this encounter? (DM, HTN, Smoking, COPD, CAD, Cancer, CVA, ARF, Chemo, Hep., AIDS, mental health diagnosis, sleep apnea, morbid obesity)? @ -[None] Was patient admitted / discharged? Hospital course, mention meds given and route, prescriptions, significant lab abnormalities, going to OR and other pertinent info. @ -[Patient is a 68-year-old woman here to have evaluation of right lower quadrant pain that she noted on waking today. The patient does have tenderness to even the lightest palpation and it does seem consistent with abdominal wall. The pain is also worsened anytime she moves consistent with abdominal wall source. Given the patient's comorbidities a CT scan was obtained which does not show evidence of other pathology at this time. The patient's labs do show urinary tract infection and the patient is started on antibiotics here. We discussed the appropriate further care and follow-up as well as return parameters. Undiagnosed new problem with uncertain prognosis? @ -[No] Drug Therapy requiring intensive monitoring for toxicity (Heparin, Nitro, Insulin, Cardizem)? @ -[No] Were any procedures done? @ -[No] Diagnosis/symptom? @ -Acute abdominal pain, suspect abdominal wall Acute urinary tract infection Acute, or Chronic, or Acute on Chronic? @ -[Acute Uncomplicated (without systemic symptoms) or Complicated (systemic symptoms)? @ -[Uncomplicated Side effects of treatment? @ -[No] Exacerbation, Progression, or Severe Exacerbation? @ -[No] Poses a threat to life or bodily function? How? (Chest pain, USA, AL, pneumonia, PE, COPD, DKA, ARF, appy, cholecystitis, CVA, Diverticulitis, Homicidal, Suicidal, threat to staff... and all critical care pts) @ -[No] All treatments are based on ideal body weight as in ED triage - Lab Data Result diagrams: 10/06/24 21:05 10/06/24 21:05 Lab Results 10/06/24 10/06/24 10/06/24 Range/Units 21:05 21:05 21:05 WBC 6.98 (4.50-10.00) 10*3/uL RBC 3.79 L (4.10-5.20) 10*6/uL Hgb 11.4 L (12.0-15.0) g/dL Hct 34.8 L (37.2-46.3) % MCV 91.8 (80.0-97.0) fL MCH 30.1 (27.0-32.0) pg MCHC 32.8 (32.0-37.0) g/dL Plt Count 225 (140-440) 10*3/uL MPV 11.2 (9.5-12.2) fL Immature Gran % (Auto) 0.1 % Neutrophils % 40.2 % Lymphocytes % 47.3 % Monocytes % 8.5 % Eosinophils % 2.9 % Basophils % 1.0 % Immature Gran # 0.01 (0.00-0.04) 10*3/uL Neutrophils # 2.81 (1.80-7.70) 10*3/uL Lymphocytes # 3.30 (0.90-5.00) 10*3/uL Monocytes # 0.59 (0.20-1.00) 10*3/uL Eosinophils # 0.20 (0.04-0.35) 10*3/uL Basophils # 0.07 (0.00-0.10) 10*3/uL Sodium 140 (137-145) mmol/L Potassium 4.1 (3.5-5.1) mmol/L Chloride 105 (98-107) mmol/L Carbon Dioxide 27 (22-30) mmol/L Anion Gap 8 mmol/L BUN 13 (7-17) mg/dL Creatinine 0.70 (0.52-1.04) mg/dL Est GFR (CKD-EPI)AfAm >90 (>60 ml/min/1.73 sqM) Est GFR (CKD-EPI)NonAf 90 (>60 ml/min/1.73 sqM) Glucose 90 (74-99) mg/dL Plasma Lactic Acid Elvis (0.7-2.0) mmol/L Calcium 8.9 (8.4-10.2) mg/dL Total Bilirubin 0.2 (0.2-1.3) mg/dL AST 26 (14-36) U/L ALT 19 (4-34) U/L Alkaline Phosphatase 62 (38-126) U/L C-Reactive Protein <0.5 (<1.0) mg/dL Total Protein 7.0 (6.3-8.2) g/dL Albumin 4.1 (3.5-5.0) g/dL Amylase 135 H (30-110) U/L Lipase 117 (23-300) U/L Urine Color Colorless Urine Appearance Clear (Clear) Urine pH 6.5 (5.0-8.0) Ur Specific Kinsley 1.007 (1.001-1.035) Urine Protein Negative (Negative) Urine Glucose (UA) Negative (Negative) Urine Ketones Negative (Negative) Urine Blood Trace H (Negative) Urine Nitrite Negative (Negative) Urine Bilirubin Negative (Negative) Urine Urobilinogen <2.0 (<2.0) mg/dL Ur Leukocyte Esterase Large H (Negative) Urine RBC 1 (0-5) /hpf Urine WBC 17 H (0-5) /hpf Ur Squamous Epith Cells 3 (0-4) /hpf Urine Mucus Rare H (None) /hpf 10/06/ Range/Units 21:05 WBC (4.50-10.00) 10*3/uL RBC (4.10-5.20) 10*6/uL Hgb (12.0-15.0) g/dL Hct (37.2-46.3) % MCV (80.0-97.0) fL MCH (27.0-32.0) pg MCHC (32.0-37.0) g/dL Plt Count (140-440) 10*3/uL MPV (9.5-12.2) fL Immature Gran % (Auto) % Neutrophils % % Lymphocytes % % Monocytes % % Eosinophils % % Basophils % % Immature Gran # (0.00-0.04) 10*3/uL Neutrophils # (1.80-7.70) 10*3/uL Lymphocytes # (0.90-5.00) 10*3/uL Monocytes # (0.20-1.00) 10*3/uL Eosinophils # (0.04-0.35) 10*3/uL Basophils # (0.00-0.10) 10*3/uL Sodium (137-145) mmol/L Potassium (3.5-5.1) mmol/L Chloride (98-107) mmol/L Carbon Dioxide (22-30) mmol/L Anion Gap mmol/L BUN (7-17) mg/dL Creatinine (0.52-1.04) mg/dL Est GFR (CKD-EPI)AfAm (>60 ml/min/1.73 sqM) Est GFR (CKD-EPI)NonAf (>60 ml/min/1.73 sqM) Glucose (74-99) mg/dL Plasma Lactic Acid Elvis 0.8 (0.7-2.0) mmol/L Calcium (8.4-10.2) mg/dL Total Bilirubin (0.2-1.3) mg/dL AST (14-36) U/L ALT (4-34) U/L Alkaline Phosphatase (38-126) U/L C-Reactive Protein (<1.0) mg/dL Total Protein (6.3-8.2) g/dL Albumin (3.5-5.0) g/dL Amylase (30-110) U/L Lipase (23-300) U/L Urine Color Urine Appearance (Clear) Urine pH (5.0-8.0) Ur Specific Kinsley (1.001-1.035) Urine Protein (Negative) Urine Glucose (UA) (Negative) Urine Ketones (Negative) Urine Blood (Negative) Urine Nitrite (Negative) Urine Bilirubin (Negative) Urine Urobilinogen (<2.0) mg/dL Ur Leukocyte Esterase (Negative) Urine RBC (0-5) /hpf Urine WBC (0-5) /hpf Ur Squamous Epith Cells (0-4) /hpf Urine Mucus (None) /hpf Disposition Clinical Impression: Abdominal pain, UTI (urinary tract infection) Disposition: HOME SELF-CARE Condition: Good Instructions (If sedation given, give patient instructions): Urinary Tract Infection in Women (ED), Abdominal Pain (ED) Additional Instructions: As we discussed, follow-up with your physician to arrange an MRCP in relation to the pancreatic duct finding on the CT scan. Return to the emergency department if you are worse in any way or new symptoms develop. Prescriptions: Sulfamethox-Tmp 800-160Mg [Bactrim Ds] 1 each PO Q12HR #6 tab Is patient prescribed a controlled substance at d/c from ED?: No Referrals: Itz Saldana MD [Primary Care Provider] - 1-2 days
[2024-10-06 21:42] LABS: ALT 19 U/L (4-34); AST 26 U/L (14-36); African American GFR (CKD) >90 (>60 ml/min/1.73 sqM); Albumin 4.1 g/dL (3.5-5.0); Alkaline Phosphatase 62 U/L (38-126); Amylase 135 U/L (30-110); Anion Gap 8 mmol/L; Blood Urea Nitrogen 13 mg/dL (7-17); Calcium 8.9 mg/dL (8.4-10.2); Carbon Dioxide 27 mmol/L (22-30); Chloride 105 mmol/L (98-107); Glucose 90 mg/dL (74-99); Lipase 117 U/L (23-300); Non-African American GFR(CKD) 90 (>60 ml/min/1.73 sqM); Potassium 4.1 mmol/L (3.5-5.1); Sodium 140 mmol/L (137-145); Total Protein 7.0 g/dL (6.3-8.2)
[2024-10-06] MEDS: HYDROmorphone 0.5 MG/0.5 ML SYRINGE IVP STA (22:12)
--- NOTE | 2024-10-06 22:37 | CT ---
EXAMINATION TYPE: CT abdomen pelvis wo con DATE OF EXAM: 10/06/2024 9:55 PM COMPARISON: CT abdomen/pelvis 04/20/2024 CLINICAL INDICATION: Female, 68 years old with history of RLQ pain; pt states stabbing pain to right side abdomen starting last night. TECHNIQUE: Axial CT abdomen pelvis wo con;Sagittal and coronal reformats were created on a separate workstation. Contrast used: mL of , (none if empty) Oral contrast used: without Oral Contrast (none if empty) CT DLP: mGycm, Automated exposure control for dose reduction was used. FINDINGS: LOWER CHEST: Lingular and left lower lobe atelectasis/scarring. ABDOMEN LIVER: Unremarkable GALLBLADDER AND BILE DUCTS: Unremarkable. PANCREAS: There is mild prominence of the pancreatic duct diffusely most pronounced in the proximal b hailey measuring up to 4 mm. SPLEEN: Unremarkable. ADRENAL GLANDS: Unremarkable. KIDNEYS AND URETERS: No evidence of hydronephrosis or obstructing renal calculus. The ureters are unr emarkable. PELVIS BLADDER: No evidence for wall thickening or mass given limitations of exam. REPRODUCTIVE: Unremarkable. ABDOMEN & PELVIS STOMACH AND BOWEL: Stomach is grossly unremarkable. Small bowel is of normal caliber.The appendix is visualized and is within normal limits. No evidence of bowel obstruction. PERITONEUM/RETROPERITONEUM: No evidence of pneumoperitoneum or free fluid. VASCULATURE: No evidence of aortic aneurysm. MUSCULOSKELETAL: No acute osseous abnormalities scoliotic curvature of the thoracolumbar spine. LYMPH NODES: No gross evidence for lymphadenopathy. SOFT TISSUE/ABDOMINAL WALL: There is a small fat filled umbilical hernia containing a loop of nondist ended gas-filled loop of bowel which does not demonstrate any significant fat stranding. IMPRESSION: 1. No CT findings to correlate for patient's reported symptoms. 2. There is a small fat filled umbilical hernia containing a loop of nondistended noninflamed small b owel. 3. Mild prominence of the pancreatic duct is seen which is nonspecific. . Findings may relate to norm al atrophic changes however these findings should be further characterized with a nonemergent outpati ent MRCP and pancreatic mass protocol with and without IV contrast. [facility], , 10/06/2024 10:35 PM
[2024-10-06] MEDS: SULFAMETHOX-TMP 800-160MG 1 EACH TAB PO STA (23:04)
[2024-10-06 23:12] VITALS: BP 146/69; PULSE 76; RESP 18; TEMP 98.1
== END 2024-10-06 23:11 | disposition home or self-care (01) ==
LOC: EC 20:29
DX: N39.0 Urinary tract infection, site not specified (principal); K42.9 Umbilical hernia without obstruction or gangrene; Z88.7 Allergy status to serum and vaccine; Z91.013 Allergy to seafood; Z87.891 Personal history of nicotine dependence
CPT/HCPCS: 36415; 80053; 82150; 83605; 83690; 85025; 86140; 81001; 74176; 99284; 96374; 96375; J2270; J1171